=== PATIENT | male | born 1975 | race Caucasian/White ===

== ENCOUNTER 2021-03-11 16:17 | Emergency (ER) | payer BC, SELFPAY ==
[2021-03-11 16:18] VITALS: BP 120/88; PULSE 86; RESP 18; TEMP 36.3; O2SAT 100
--- NOTE | 2021-03-11 16:49 | ECG_ITS ---
Measurements Intervals [place] Rate: 85 P: 27 MT: 132 QRS: -4 QRSD: 84 T: 23 QT: 347 QTc: 413 Interpretive Statements SINUS RHYTHM INCOMPLETE RIGHT BUNDLE BRANCH BLOCK BORDERLINE T WAVE ABNORMALITY- INF/LAT LEADS BASELINE ARTIFACT- I, III BORDERLINE ECG Electronically Signed On 03-11-2021 18:59:10 CDT by Jostin Beasley D.O.
--- NOTE | 2021-03-11 17:13 | ED.GENADULT ---
HPI - General Adult General Chief complaint: Anxiety Stated complaint: Anxiety Attack x3 days Time Seen by Provider: 03/11/21 16:23 History of Present Illness HPI narrative: Patient is a 45-year-old male who presents ER with anxiety. Reports he stopped his anxiety medications last month. This is done in consultation with his doctor. He had been doing well until 3 days ago when the anxiety crept back into his life. Reports had a panic attack earlier today. He is also been getting some central chest tightness related to his anxiety. No shortness of breath. He did try to go for a run which did not modify his chest discomfort. Denies fevers or chills or sweats. No new stressors. He does continue to smoke. Related Data Home Medications Medication Instructions Recorded Confirmed buspirone 5 mg PO BID 10/08/19 clonazepam 1 mg PO TID 10/08/19 escitalopram oxalate 10 mg PO DAILY 10/08/19 trazodone 100 mg PO HS 10/08/19 Allergies Allergy/AdvReac Type Severity Reaction Status Date / Time No Known Allergies Allergy Verified 10/08/19 11:37 Review of Systems Constitutional: Constitutional: Denies chills, Denies fever(s) and Denies weakness Cardiovascular: Cardiovascular: Reports chest pain, Denies rapid heart rate and Denies radiating jaw, neck or arm pain Respiratory: Respiratory: Denies cough and Denies dyspnea Psychiatric: Psychiatric: Reports anxiety, Denies depression, Denies homicidal ideation and Denies suicidal ideation PMFSH Past Medical History Medical History (Updated 03/11/21 @ 17:16 by Conrad Lowry MD) Anxiety Cluster headache GERD (gastroesophageal reflux disease) Psoriasis Family History Family History (Updated 03/30/19 @ 16:59 by DOCTOR UNKNOWN) Mother Family history of malignant neoplasm Other Cerebrovascular accident Social History Social History (Updated 10/08/19 @ 13:13 by Junior Oneal) Smoking status: Current every day smoker Alcohol intake: current Gender identity (if verbalized by the patient): Male Exam Narrative: Exam Narrative: GENERAL: Well-appearing, well-nourished, and in no acute distress. HEAD: Normocephalic, atraumatic. CHEST: Clear to auscultation. No respiratory distress. HEART: Regular rate and rhythm. Normal peripheral pulses. ABDOMEN: Soft, nontender, nondistended. EXTREMITIES: Normal range of motion. No edema. SKIN: Warm, dry, no rash. NEURO: Alert and oriented x3. PSYCH: Normal mood and affect. Course Course Emergency Course: Symptoms felt to be related to anxiety. Discussed with patient I will give him a small amount of Valium to help keep his anxiety at bay but he will need to discuss definitive treatment with his physician in 2 days when he has his scheduled follow-up appointment. Vital Signs Vital signs: Vital Signs Temperature 97.3 F L 03/11/21 16:18 Pulse Rate 86 03/11/21 16:18 Respiratory Rate 18 03/11/21 16:18 Blood Pressure 120/88 03/11/21 16:18 Pulse Oximetry 100 03/11/21 16:18 Temperature 97.4 F L 03/11/21 17:17 Pulse Rate 84 03/11/21 17:17 Respiratory Rate 19 03/11/21 17:17 Blood Pressure 125/86 03/11/21 17:17 Pulse Oximetry 99 03/11/21 17:17 Medical Decision Making Vital Signs Vital Signs: Vital Signs Temperature 97.3 F L 03/11/21 16:18 Pulse Rate 86 03/11/21 16:18 Respiratory Rate 18 03/11/21 16:18 Blood Pressure 120/88 03/11/21 16:18 Pulse Oximetry 100 03/11/21 16:18 Temperature 97.4 F L 03/11/21 17:17 Pulse Rate 84 03/11/21 17:17 Respiratory Rate 19 03/11/21 17:17 Blood Pressure 125/86 03/11/21 17:17 Pulse Oximetry 99 03/11/21 17:17 ECG Data EKG #1: ECG completion date: 03/11/21 ECG completion time: 17:15 EKG Interpretation: normal rate, sinus rhythm, no ST changes, normal QRS and normal QT Discharge Plan Discharge Clinical Impression: Anxiety Patient Disposition: Home, Self-Care Condition: Stable
[2021-03-11 17:17] VITALS: BP 125/86; PULSE 84; RESP 19; TEMP 36.3; O2SAT 99
== END 2021-03-11 17:33 | disposition home or self-care (01) ==
PROVIDERS: Emergency Provider Emergency Medicine
DX: F41.9 Anxiety disorder, unspecified (principal); K21.9 Gastro-esophageal reflux disease without esophagitis; F17.200 Nicotine dependence, unspecified, uncomplicated; I45.10 Unspecified right bundle-branch block; R94.31 Abnormal electrocardiogram [ECG] [EKG]
CPT/HCPCS: 93005; 99283

== ENCOUNTER 2022-03-23 17:28 | Emergency (ER) | payer BC, SELFPAY ==
--- NOTE | ~2022-03-23 | CT_ITS ---
EXAMINATION: CT brain wo con DATE: 03/23/2022 20:06 INDICATION: Headache. TECHNIQUE: Computed tomography (CT) of the head was performed without intravenous contrast. The mA wa s adjusted according to patient size. Iterative reconstruction technique was employed. The dose-lengt h product was 605.33 mGy-cm. COMPARISON: Head CT 12/27/2018, brain MRI 05/09/2018 FINDINGS: There is no intracranial hemorrhage, acute infarction, or abnormal intracranial mass lesion . The ventricles are normal in size. The orbits are normal. There is mucosal thickening in the parana raman sinuses. The mastoid air cells are normal. IMPRESSION: 1. Normal brain. Reviewed, dictated and finalized at location A. IMPRESSION: 1. Normal brain.
[2022-03-23 18:00] VITALS: BP 105/78; PULSE 71; RESP 18; TEMP 36.4; O2SAT 97
[2022-03-23 19:37] VITALS: BP 117/86; PULSE 66; RESP 12; O2SAT 96
--- NOTE | 2022-03-23 19:52 | ED.ANXIETY ---
HPI - Anxiety General Chief Complaint: Anxiety Stated Complaint: anxiety due to medication change Time Seen by Provider: 03/23/22 19:41 Source: patient Mode of arrival: ambulatory Limitations: no limitations History of Present Illness HPI narrative: This is a 46 year old male that presents to the ER for worsening anxiety ongoing over the last couple of weeks. Reports recent change in his psychiatric medications. He has been having worsening anxiety and trouble sleeping. Also reports a pounding headache and ringing in his ears. Denies any thoughts of harming himself or anyone else. Denies fever, vision changes, vomiting, numbness, or weakness. Related Data Home Medications Medication Instructions Recorded Confirmed buspirone 5 mg PO BID 10/08/19 clonazepam 1 mg PO TID 10/08/19 escitalopram oxalate 10 mg PO DAILY 10/08/19 trazodone 100 mg PO HS 10/08/19 Allergies Allergy/AdvReac Type Severity Reaction Status Date / Time bupropion [From Wellbutrin] AdvReac Anxiety Verified 03/23/22 19:40 quetiapine [From Seroquel] AdvReac Irritable Verified 03/23/22 19:40 Review of Systems Review of Systems: CONSTITUTIONAL: Denies fever EYES: Denies visual changes GASTROINTESTINAL: Denies vomiting NEUROLOGIC: Reports headache. Denies numbness, or weakness. PSYCHIATRIC: Reports anxiety All systems reviewed & are unremarkable except as noted in HPI and below PMFSH Past Medical History Medical History (Updated 03/23/22 @ 20:34 by Libia Willingham PA-C) Anxiety Cluster headache GERD (gastroesophageal reflux disease) Psoriasis Family History Family History (Updated 03/30/19 @ 16:59 by DOCTOR UNKNOWN) Mother Family history of malignant neoplasm Other Cerebrovascular accident Social History Social History (Updated 10/08/19 @ 13:13 by Junior Oneal) Smoking status: Current every day smoker Alcohol intake: current Alcohol use details: Current alcoholic. Substance use type: does not use Gender identity (if verbalized by the patient): Male Exam Narrative: GENERAL: Well-appearing, well-nourished, and in no acute distress. HEAD: Normocephalic, atraumatic. EYES: PERRLA and EOMI. ENT: Nares clear, no rhinorrhea or epistaxis. Mucous membranes moist. Oropharynx without tonsillar hypertrophy exudate or other lesions. Bilateral TMs pearly sandy non-bulging NECK: Supple. No adenopathy or masses. No carotid bruits or JVD CHEST: Clear to auscultation. No respiratory distress. No wheezes rales or rhonchi HEART: Regular rate and rhythm. No murmur heard. Normal peripheral pulses. EXTREMITIES: Normal range of motion. No edema. SKIN: Warm, dry, no rash. NEURO: No focal deficits. Alert and oriented x3. Cranial nerves II through XII grossly intact PSYCH: Normal mood and affect Course Vital Signs Vital signs: Vital Signs Temperature 97.6 F 03/23/22 18:00 Pulse Rate 71 03/23/22 18:00 Respiratory Rate 18 03/23/22 18:00 Blood Pressure 105/78 03/23/22 18:00 Pulse Oximetry 97 03/23/22 18:00 Temperature 97.6 F 03/23/22 18:00 Pulse Rate 66 03/23/22 19:37 Respiratory Rate 12 03/23/22 19:37 Blood Pressure 117/86 03/23/22 19:37 Pulse Oximetry 96 03/23/22 19:37 MDM - Anxiety MDM Narrative Medical decision making narrative: Patient presents to the ER for worsening anxiety after recent medication change. Also reporting a headache. Patient's vitals are stable. He is neurologically intact. CBC and metabolic panel without concerning findings. CT scan of the brain is normal. Patient denies any thoughts of harming himself or anyone else. Will be given a short course of anxiety medication as needed. Instructed to have close follow-up with his doctor. He was given warnings to return to the ER Lab Data Attestation: I reviewed the patient's lab results. Result diagrams: 03/23/22 19:58 03/23/22 19:58 Labs: Lab Results 03/23/22 03/23/22 Range/Units 19:
[2022-03-23 20:05] LABS: Basophils Absolute Auto 0.1 K/mm3 (0.0-0.1); Basophils Percent Auto 0.5 % (0.2-1.2); Eosinophils Absolute Auto 0.5 K/mm3 (0-0.3); Eosinophils Percent Auto 3.9 % (0-4.4); Hematocrit 45.6 % (42.0-52.0); Hemoglobin 15.4 g/dL (14.0-18.0); Immature Granulocyte Absolute 0.06 K/mm3 (0.00-0.031); Immature Granulocyte Percent A 0.5 % (0-0.5); Lymphocytes Absolute Auto 1.79 K/mm3 (0.9-3.2); Lymphocytes Percent Auto 15.5 % (18.3-44.2); Mean Corpuscular HGB Conc 33.8 g/dl (32-36); Mean Corpuscular Hemoglobin 32.4 pg (26-34); Mean Corpuscular Volume 95.8 fl (80-100); Mean Platelet Volume 9.5 fl (7.4-10.4); Monocytes Absolute Auto 0.8 K/mm3 (0.1-0.6); Monocytes Percent Auto 6.6 % (2.6-8.5); Neutrophils Absolute Auto 8.4 K/mm3 (1.3-6.7); Platelet Count Result 274 k/mm3 (150-375); Red Blood Count 4.76 M/mm3 (4.6-6.20); Red Cell Distribution Width 13.6 % (11.5-14.5); White Blood Count 11.6 K/mm3 (4.5-10.0)
[2022-03-23 20:13] LABS: Alanine Aminotransferase 29 U/L (4-50); Albumin Level 4.4 g/dL (3.5-5.1); Alkaline Phosphatase 86 U/L (38-126); Anion Gap 7 mmol/L (8-16); Aspartate Amino Transferase 29 U/L (17-59); Bilirubin,Total 0.4 mg/dL (0.2-1.3); Blood Urea Nitrogen 17 mg/dL (9-20); Calcium 9.1 mg/dL (8.4-10.2); Carbon Dioxide 26 mmol/L (22-30); Chloride 105 mmol/L (98-107); Estimated CRCL calculation 80 ml/min; Estimated Glomerular Filt Rate > 60; Glucose 103 mg/dL (65-110); Potassium 4.3 mmol/L (3.4-5.0); Sodium 138 mmol/L (137-145)
[2022-03-23] MEDS: ACETAMINOPHEN 500 MG TABLET 1000 MG PO (20:19)
[2022-03-23 21:00] VITALS: BP 120/87; PULSE 80; RESP 19; O2SAT 97
== END 2022-03-23 21:00 | disposition home or self-care (01) ==
PROVIDERS: Physician Assistant; Emergency Provider Emergency Medicine
DX: F41.9 Anxiety disorder, unspecified (principal); K21.9 Gastro-esophageal reflux disease without esophagitis; F17.200 Nicotine dependence, unspecified, uncomplicated
CPT/HCPCS: 36415; 70450; 80053; 85025; 99284; A9270

== ENCOUNTER 2023-03-09 12:38 | Emergency (ER) | payer OTHER, SELFPAY ==
[2023-03-09] VITALS (17 sets, daily range): BP systolic 126–145; BP diastolic 53–123; PULSE 70–82; RESP 9–22; TEMP 36.8; O2SAT 94–100
--- NOTE | ~2023-03-09 | CT_ITS ---
EXAMINATION: CT abdomen pelvis w con DATE: 03/09/2023 16:45 INDICATION: ab pain TECHNIQUE: Computed tomography (CT) of the abdomen and pelvis was performed with 100 mL Omnipaque-350 intravenous contrast. Automated exposure control and iterative reconstruction technique were employe d. The dose-length product was 347.66 mGy-cm. COMPARISON: None. FINDINGS: Lower thorax: Unremarkable Liver: Normal. Biliary/Gallbladder: Gallbladder is partially decompressed. No bile duct dilation. Pancreas: No mass or duct dilation. Spleen: Normal. Adrenals:No mass. Kidneys: No mass, stone, or hydronephrosis. GI tract: No small or large bowel dilation. Normal appendix. Mesentery/Peritoneum: No ascites, mass, or free air. Retroperitoneum: No mass. Pelvis: Pelvic organs are within normal limits. Soft Tissues: Soft tissues and body wall unremarkable. Bones: No acute osseous finding. IMPRESSION: No acute abdominopelvic process detected. Reviewed, dictated and finalized at location K.
--- NOTE | 2023-03-09 13:10 | ECG_ITS ---
Measurements Intervals [place] Rate: 73 P: 53 NV: 133 QRS: -25 QRSD: 100 T: 47 QT: 363 QTc: 401 Interpretive Statements SINUS RHYTHM BORDERLINE LEFT AXIS DEVIATION [QRS AXIS < -20] INCOMPLETE RIGHT BUNDLE BRANCH BLOCK [90+ ms QRS DURATION, TERMINAL R IN V1/V2, 40+ ms S IN I/aVL/V4/V5/V6] COMPARED TO ECG 03/11/2021 17:15:01 NO SIGNIFICANT CHANGES Electronically Signed On 03-11-2023 6:51:31 CDT by Elvin Collier M.D.
[2023-03-09 13:24] LABS: Basophils Absolute Auto 0.1 K/mm3 (0.0-0.1); Basophils Percent Auto 0.9 % (0.2-1.2); Eosinophils Absolute Auto 0.2 K/mm3 (0-0.3); Eosinophils Percent Auto 2.5 % (0-4.4); Hemoglobin 9.9 g/dL (14.0-18.0); Immature Granulocyte Absolute 0.03 K/mm3 (0.00-0.031); Immature Granulocyte Percent A 0.4 % (0-0.5); Lymphocytes Absolute Auto 2.13 K/mm3 (0.9-3.2); Lymphocytes Percent Auto 28.1 % (18.3-44.2); Mean Corpuscular Hemoglobin 31.4 pg (26-34); Mean Corpuscular Volume 95.2 fl (80-100); Mean Platelet Volume 9.1 fl (7.4-10.4); Monocytes Absolute Auto 0.5 K/mm3 (0.1-0.6); Monocytes Percent Auto 6.2 % (2.6-8.5); Neutrophils Absolute Auto 4.7 K/mm3 (1.3-6.7); Neutrophils Percent Auto 61.9 % (45.5-73.1); Platelet Count Result 353 k/mm3 (150-375); Red Blood Count 3.15 M/mm3 (4.6-6.20); Red Cell Distribution Width 12.6 % (11.5-14.5); White Blood Count 7.6 K/mm3 (4.5-10.0)
[2023-03-09 13:35] LABS: Alanine Aminotransferase 21 U/L (6-50); Albumin Level 3.8 g/dL (3.5-5.1); Alkaline Phosphatase 44 U/L (38-126); Anion Gap 4 mmol/L (8-16); Aspartate Amino Transferase 19 U/L (17-59); Bilirubin,Total 0.4 mg/dL (0.2-1.3); Blood Urea Nitrogen 13 mg/dL (9-20); Calcium 10.4 mg/dL (8.4-10.2); Carbon Dioxide 32 mmol/L (22-30); Chloride 101 mmol/L (98-107); Estimated CRCL calculation 72 ml/min; Estimated Glomerular Filt Rate > 60; Glucose 101 mg/dL (65-110); Lipase 154 U/L (23-300); Potassium 3.1 mmol/L (3.4-5.0); Sodium 137 mmol/L (137-145)
[2023-03-09 13:47] LABS: Troponin I < 0.012 ng/mL (0.000-0.034)
[2023-03-09 14:22] LABS: Appearance Urine Cloudy (Clear); Bacteria Urine None Seen /hpf; Bilirubin Urine Negative (Negative); Blood Urine Negative (Negative); Color Urine Yellow (Yellow); Glucose Urine UA Negative (Negative); Ketones Urine Negative (Negative); Leukocyte Esterase Ur Negative LEU/UL (Negative); Nitrate Urine Negative (Negative); Non Pathogenic Casts 0-2; Protein Urine Negative (Negative); RBC Urine 0-2 /hpf (0-2); Specific Grav Ur 1.009 (1.001-1.035); Squamous Epithelial Cell Urine None seen /hpf (Few); Urobilinogen Urine 0.2 mg/dL (<2.0); WBC Urine 0-5 /hpf
[2023-03-09 14:25] LABS: Add Urine Microscopic? YES
[2023-03-09] MEDS: KCL 20 MEQ/SW 100 ML 100 ML 50 MEQ IVPB (16:16)
--- NOTE | 2023-03-09 16:25 | ED.GENADULT ---
HPI - General Adult General Chief complaint: Abdominal Pain Stated complaint: ABD PAIN, CP, LIGHTHEADED Time Seen by Provider: 03/09/23 15:54 History of Present Illness HPI narrative: 47-year-old male presented the emergency department for evaluation of intermittent epigastric pain and stomach pain with associated nausea. Patient states over the last few days he has had worsening symptoms. Patient states symptoms do improve when he takes Tums. Related Data Home Medications Medication Instructions Recorded Confirmed buspirone 5 mg tablet 5 mg PO BID 10/08/19 clonazepam 1 mg tablet 1 mg PO TID 10/08/19 escitalopram oxalate 10 mg tablet 10 mg PO DAILY 10/08/19 trazodone 100 mg tablet 100 mg PO HS 10/08/19 Allergies Allergy/AdvReac Type Severity Reaction Status Date / Time bupropion [From Wellbutrin] AdvReac Anxiety Verified 03/23/22 19:40 quetiapine [From Seroquel] AdvReac Irritable Verified 03/23/22 19:40 Review of Systems Review of Systems: All systems reviewed & are unremarkable except as noted in HPI and below PMFSH Past Medical History Medical History (Updated 03/09/23 @ 17:44 by Red Cordoba MD) Anxiety Cluster headache GERD (gastroesophageal reflux disease) Psoriasis Family History Family History (Updated 03/30/19 @ 16:59 by DOCTOR UNKNOWN) Mother Family history of malignant neoplasm Other Cerebrovascular accident Social History Social History (Updated 10/08/19 @ 13:13 by Junior Oneal) Smoking status: Current every day smoker Alcohol intake: current Alcohol use details: Current alcoholic. Substance use type: does not use Gender identity (if verbalized by the patient): Male Exam Narrative: APPEARANCE: Well appearing, no pain, no distress, well-nourished. HEAD: normocephalic, atraumatic. EYES: PERRLA/EOMI, conjunctivae clear. NOSE: Normal no drainage NECK: Supple. No adenopathy, no masses. RESPIRATORY: Airway patent, respirations nonlabored. Clear to auscultation bilaterally, no rales, rhonchi, wheezing. CARDIOVASCULAR: Regular rate and rhythm without murmurs rubs or gallops. ABDOMINAL: Soft, epigastric tenderness to palpation MUSCULOSKELETAL: Moves all extremities. Strength/ROM intact, No edema, No calf tenderness. NEURO: Alert. Cranial nerves II through XII intact. Grossly intact SKIN: Warm, dry. Normal Color Course Course Emergency Course: 47-year-old male presented the emergency department for evaluation of epigastric pain. Patient states that the GI cocktail did resolve his pain. Patient is afebrile with no leukocytosis. Patient's CMP was normal other than his potassium which was 3.1 which was replaced through IV. Patient serial troponins were negative. Patient's UA showed no evidence of urinary tract infection. CT showed no acute abdominal pelvic abnormality. Patient does have a prior history of gastritis but has not been taking his omeprazole. Patient was updated on the results of the work-up and plan for home treatment and on the importance for close follow-up with GI. All questions concerns were addressed. Vital Signs Vital signs: Vital Signs Temperature 98.2 F 03/09/23 13:06 Pulse Rate 79 03/09/23 13:06 Respiratory Rate 16 03/09/23 13:06 Blood Pressure 145/87 H 03/09/23 13:06 Pulse Oximetry 100 03/09/23 13:06 Oxygen Delivery Room Air 03/09/23 13:06 Temperature 98.2 F 03/09/23 13:06 Pulse Rate 78 03/09/23 18:04 Respiratory Rate 9 L 03/09/23 18:04 Blood Pressure 130/53 L 03/09/23 18:02 Pulse Oximetry 100 03/09/23 18:04 Oxygen Delivery Room Air 03/09/23 13:06 Medical Decision Making Vital Signs Vital Signs: Vital Signs Temperature 98.2 F 03/09/23 13:06 Pulse Rate 79 03/09/23 13:06 Respiratory Rate 16 03/09/23 13:06 Blood Pressure 145/87 H 03/09/23 13:06 Pulse Oximetry 100 03/09/23 13:06 Oxygen Delivery Room Air 03/09/23 13:06 Temperature 98.2 F 03/09/23 13:06 Pulse
[2023-03-09] MEDS: PANTOPRAZOLE SODIUM IV 40 MG VIAL IV PUSH (17:18)
[2023-03-09] MEDS: BELLADONNA ALK/PHENOB ELIX 10 ML, MAG HYDROX/ALUMINUM HYD/SIMETH 30 ML, LIDOCAINE HCL 2... PO (17:18)
[2023-03-09 17:22] LABS: Troponin I < 0.012 ng/mL (0.000-0.034)
== END 2023-03-09 18:19 | disposition home or self-care (01) ==
PROVIDERS: Emergency Medicine; Emergency Provider Emergency Medicine
DX: K29.70 Gastritis, unspecified, without bleeding (principal); K21.9 Gastro-esophageal reflux disease without esophagitis; F41.9 Anxiety disorder, unspecified; F17.200 Nicotine dependence, unspecified, uncomplicated
CPT/HCPCS: 36415; 74177; 80053; 81001; 83690; 84484; 85025; 93005; 96365; 96366; 96375; 99284; A9270; C9113; J3480; Q9967

== ENCOUNTER 2023-08-24 15:31 | Emergency (ER) | payer OTHER, SELFPAY ==
[2023-08-24 15:32] VITALS: BP 124/78; PULSE 83; RESP 16; TEMP 37; O2SAT 100
--- NOTE | 2023-08-24 16:38 | ED.ANXIETY ---
HPI - Anxiety General Chief Complaint: Anxiety Stated Complaint: anxiety Time Seen by Provider: 08/24/23 15:38 History of Present Illness HPI narrative: 47-year-old male with history of anxiety reports to the emergency department for evaluation of anxiety since last night. Patient states he follows with Dr. Chan psychiatry. He last had an appointment 1 month ago that went well. He states he has had his anxiety under control for the past year and has not required any medications, however last night began feeling anxious again. States this morning he woke up to go for mom to see if it helped and it did not, so he came to the ED for further evaluation. He did call his psychiatrist office, however is waiting to hear back and states his anxiety is getting the best of me. Patient reports in the past he has taken clonazepam as needed but is currently out of his prescription. He states he has trialed hydroxyzine in the past without improvement. He denies chest pain or shortness of breath, fever, other complaints. He denies SI/HI, no psychosis. He denies new onset stressors or life changes, but does state he was hospitalized approximately 3 weeks ago at [facility] for hypokalemia secondary to vomiting and diarrhea. At that time was not taking his Vraylar, and is concern this may be contributing to his anxiety. Related Data Home Medications Medication Instructions Recorded Confirmed buspirone 5 mg tablet 5 mg PO BID 10/08/19 clonazepam 1 mg tablet 1 mg PO TID 10/08/19 escitalopram oxalate 10 mg tablet 10 mg PO DAILY 10/08/19 trazodone 100 mg tablet 100 mg PO HS 10/08/19 Allergies Allergy/AdvReac Type Severity Reaction Status Date / Time bupropion [From Wellbutrin] AdvReac Anxiety Verified 03/23/22 19:40 quetiapine [From Seroquel] AdvReac Irritable Verified 03/23/22 19:40 Review of Systems Review of Systems: CONSTITUTIONAL: Denies fever, chills EYES: Denies visual changes, redness, or discharge. ENT: Denies rhinorrhea, congestion, sore throat, or otalgia. CARDIOVASCULAR: Denies chest pain, palpitations, or edema. RESPIRATORY: Denies cough or dyspnea. GASTROINTESTINAL: Denies abdominal pain, nausea, vomiting, or diarrhea. GENITOURINARY: Denies dysuria or hematuria. SKIN: Denies rash or itching. MUSCULOSKELETAL: Denies back pain, joint pain, or myalgia. NEUROLOGIC: Denies headache, numbness, dizziness, or weakness. PSYCHIATRIC: See [facility] Past Medical History Medical History Anxiety Cluster headache GERD (gastroesophageal reflux disease) Psoriasis Family History Family History Mother Family history of malignant neoplasm Other Cerebrovascular accident Social History Social History Smoking status: Current every day smoker Alcohol intake: current Alcohol use details: Current alcoholic. Substance use type: does not use Gender identity (if verbalized by the patient): Male Exam Narrative: GENERAL: Well-appearing, in no acute distress. Patient resting comfortably in exam bed. He is pleasant and conversational. HEAD: Normocephalic NECK: Supple. CHEST: No respiratory distress. Clear to auscultation, no adventitious breath sounds. HEART: Regular rate and rhythm. No murmur heard. Normal peripheral pulses. EXTREMITIES: Normal range of motion. No edema. SKIN: Warm, dry, no rash. NEURO: No focal deficits. Alert and oriented x3. PSYCH: Normal mood and affect. Good judgment and insight. No active psychosis, hallucinations, delusions. No SI or HI. Course Course Emergency Course: Pt returned to the ED after he picked up his prescription from the pharmacy. Medication in the paper bag still stapled and intact from the pharmacy. Rx shows only 3 clonazepam were able to be filled. Script was written for 5. Per the patient, the pharm
[2023-08-24] MEDS: clonazePAM (*CRX) 0.5 MG TABLET PO (16:59)
== END 2023-08-24 17:03 | disposition home or self-care (01) ==
PROVIDERS: Emergency Provider Physician Assistant; PCP Emergency Medicine
DX: F41.9 Anxiety disorder, unspecified (principal); K21.9 Gastro-esophageal reflux disease without esophagitis; L40.9 Psoriasis, unspecified; F17.200 Nicotine dependence, unspecified, uncomplicated
CPT/HCPCS: 99283; A9270

== ENCOUNTER 2023-10-31 11:11 | Outpatient (CLI) | payer OTHER, SELFPAY ==
[2023-10-31 11:37] LABS: Basophils Absolute Auto 0.1 K/mm3 (0.0-0.1); Basophils Percent Auto 1.2 % (0.2-1.2); Eosinophils Absolute Auto 0.4 K/mm3 (0-0.3); Eosinophils Percent Auto 4.8 % (0-4.4); Hematocrit 37.2 % (42.0-52.0); Hemoglobin 12.1 g/dL (14.0-18.0); Immature Granulocyte Absolute 0.03 K/mm3 (0.00-0.031); Immature Granulocyte Percent A 0.4 % (0-0.5); Lymphocytes Absolute Auto 1.52 K/mm3 (0.9-3.2); Lymphocytes Percent Auto 19.9 % (18.3-44.2); Mean Corpuscular HGB Conc 32.5 g/dl (32-36); Mean Corpuscular Hemoglobin 27.9 pg (26-34); Mean Corpuscular Volume 85.9 fl (80-100); Mean Platelet Volume 9.6 fl (7.4-10.4); Monocytes Absolute Auto 0.5 K/mm3 (0.1-0.6); Monocytes Percent Auto 6.8 % (2.6-8.5); Neutrophils Absolute Auto 5.1 K/mm3 (1.3-6.7); Neutrophils Percent Auto 66.9 % (45.5-73.1); Platelet Count Result 316 k/mm3 (150-375); Red Blood Count 4.33 M/mm3 (4.6-6.20); Red Cell Distribution Width 13.7 % (11.5-14.5); White Blood Count 7.6 K/mm3 (4.5-10.0)
[2023-10-31 17:13] LABS: Erythrocyte Sedimentation Rate 10 mm/hr (0-20)
[2023-10-31 20:08] LABS: Alanine Aminotransferase 22 U/L (6-50); Albumin Level 4.5 g/dL (3.5-5.1); Alkaline Phosphatase 82 U/L (38-126); Anion Gap 9 mmol/L (8-16); Aspartate Amino Transferase 22 U/L (17-59); Blood Urea Nitrogen 20 mg/dL (9-20); CRP < 0.5 mg/dL (<1.0); Calcium 9.6 mg/dL (8.4-10.2); Carbon Dioxide 21 mmol/L (22-30); Chloride 110 mmol/L (98-107); Estimated Glomerular Filt Rate > 60; Glucose 88 mg/dL (65-110); Potassium 4.4 mmol/L (3.4-5.0); Sodium 140 mmol/L (137-145)
[2023-10-31 20:39] LABS: Iron 47 ug/dL (49-181)
[2023-10-31 20:50] LABS: Percent Iron Saturation 11 % (20-50)
[2023-10-31 21:04] LABS: Folic Acid 6.1 ng/mL (2.76->20)
[2023-10-31 22:36] LABS: Bilirubin,Total 0.3 mg/dL (0.2-1.3)
== END 2023-10-31 11:12 | disposition home or self-care (01) ==
PROVIDERS: Visit Provider Internal Medicine Hematology & Oncology
DX: D64.9 Anemia, unspecified (principal)
CPT/HCPCS: 36415; 80053; 82607; 82728; 82746; 83540; 83550; 85025; 85652; 86140

== ENCOUNTER 2024-01-25 15:43 | Emergency (ER) | payer OTHER, SELFPAY ==
--- NOTE | ~2024-01-25 | CT_ITS ---
EXAMINATION: CT brain wo con DATE: 01/25/2024 16:42 INDICATION: Dizziness. TECHNIQUE: Computed tomography (CT) of the head was performed without intravenous contrast. The mA wa s adjusted according to patient size. Iterative reconstruction technique was employed. The dose-lengt h product was 605.33 mGy-cm. COMPARISON: Head CT 03/23/22, brain MRI 05/09/2018 FINDINGS: There is no intracranial hemorrhage, acute infarction, or abnormal intracranial mass lesion . The ventricles are normal in size. There is mild mucosal thickening in the paranasal sinuses. The o rbits are normal. The mastoid air cells are normal. IMPRESSION: 1. Normal brain. Reviewed, dictated and finalized at location E. E CHECKER IMPRESSION: 1. Normal brain.
--- NOTE | ~2024-01-25 | XR_ITS ---
EXAMINATION: XR chest 1V DATE: 01/25/2024 16:51 INDICATION: Dizziness. TECHNIQUE: A single frontal view of the chest was obtained. COMPARISON: Chest 2 views 12/27/2018, CT abdomen and pelvis 03/09/2023 FINDINGS: There is no pneumonia, pleural effusion, or pneumothorax. The heart size is normal. Pectus excavatum is noted. IMPRESSION: 1. No acute cardiopulmonary disease. Reviewed, dictated and finalized at location E. ZER OPERATOR
[2024-01-25 15:43] VITALS: BP 123/86; PULSE 70; RESP 16; TEMP 36.5; O2SAT 99
--- NOTE | 2024-01-25 15:44 | ECG_ITS ---
Measurements Intervals [place] Rate: 70 P: 48 CO: 142 QRS: 17 QRSD: 84 T: 22 QT: 360 QTc: 389 Interpretive Statements SINUS RHYTHM POSSIBLE LEFT ATRIAL ENLARGEMENT INCOMPLETE RIGHT BUNDLE BRANCH BLOCK BORDERLINE ECG COMPARED TO ECG 03/09/2023 13:12:33 NO SIGNIFICANT CHANGES Electronically Signed On 01-25-2024 19:34:10 WELLNESS COORDINATOR by Jostin Beasley D.O.
[2024-01-25 16:02] LABS: Basophils Absolute Auto 0.1 K/mm3 (0.0-0.1); Eosinophils Absolute Auto 0.3 K/mm3 (0-0.3); Eosinophils Percent Auto 4.2 % (0-4.4); Immature Granulocyte Absolute 0.03 K/mm3 (0.00-0.031); Immature Granulocyte Percent A 0.4 % (0-0.5); Lymphocytes Percent Auto 22.2 % (18.3-44.2); Mean Corpuscular HGB Conc 33.3 g/dl (32-36); Mean Corpuscular Hemoglobin 29.3 pg (26-34); Mean Corpuscular Volume 87.8 fl (80-100); Mean Platelet Volume 9.8 fl (7.4-10.4); Monocytes Absolute Auto 0.5 K/mm3 (0.1-0.6); Monocytes Percent Auto 7.2 % (2.6-8.5); Neutrophils Absolute Auto 4.7 K/mm3 (1.3-6.7); Platelet Count Result 309 k/mm3 (150-375); Red Blood Count 4.44 M/mm3 (4.6-6.20); Red Cell Distribution Width 15.4 % (11.5-14.5); White Blood Count 7.2 K/mm3 (4.5-10.0)
[2024-01-25 16:12] LABS: Alanine Aminotransferase 21 U/L (6-50); Albumin Level 4.3 g/dL (3.5-5.1); Alkaline Phosphatase 72 U/L (38-126); Anion Gap 7 mmol/L (8-16); Aspartate Amino Transferase 19 U/L (17-59); Bilirubin,Total 0.4 mg/dL (0.2-1.3); Blood Urea Nitrogen 20 mg/dL (9-20); Calcium 9.1 mg/dL (8.4-10.2); Carbon Dioxide 24 mmol/L (22-30); Chloride 105 mmol/L (98-107); Estimated CRCL calculation 71 ml/min; Estimated Glomerular Filt Rate > 60; Glucose 102 mg/dL (65-110); Sodium 136 mmol/L (137-145)
--- NOTE | 2024-01-25 16:26 | ED.DIZZY ---
HPI - Dizziness General Chief Complaint: Dizziness Stated Complaint: light headed, lulú pain Time Seen by Provider: 01/25/24 16:25 Source: patient and family Mode of arrival: ambulatory Limitations: no limitations History of Present Illness HPI Narrative: 48 YEARS OLD WHITE MALE CAME TO THE EMERGENCY ROOM BY PRIVATE CAR WITH HIS DAD COMPLAINING OF DIZZINESS, LIGHTHEADEDNESS AND FEELING TIRED FOR THE LAST 3 DAYS. HE PATIENT HAD SIMILAR SYMPTOMS IN THE PAST SECONDARY TO HYPOKALEMIA AND ANXIETY RELATED SYMPTOMS. PATIENT HAVE PSYCH DISORDER. HE DENIED FEVER, CHILLS, NAUSEA, VOMITING, CHEST PAIN, SHORTNESS OF BREATH OR HEADACHE. ALSO DENIES SMOKING OR DRINKING OR USING DRUGS. Related Data Home Medications Medication Instructions Recorded Confirmed buspirone 5 mg tablet 5 mg PO BID 10/08/19 clonazepam 1 mg tablet 1 mg PO TID 10/08/19 escitalopram oxalate 10 mg tablet 10 mg PO DAILY 10/08/19 trazodone 100 mg tablet 100 mg PO HS 10/08/19 Allergies Allergy/AdvReac Type Severity Reaction Status Date / Time bupropion [From Wellbutrin] AdvReac Anxiety Verified 11/27/23 15:56 quetiapine [From Seroquel] AdvReac Irritable Verified 11/27/23 15:56 Review of Systems Review of Systems: All systems reviewed & are unremarkable except as noted in HPI and below PMFSH Past Medical History Medical History Anxiety Cluster headache GERD (gastroesophageal reflux disease) Psoriasis Family History Family History Mother Family history of malignant neoplasm Other Cerebrovascular accident Social History Social History Smoking status: Current every day smoker Alcohol intake: current Alcohol use details: Current alcoholic. Substance use type: does not use Gender identity (if verbalized by the patient): Male Exam Narrative: GENERAL APPEARANCE: WELL-DEVELOPED, WELL-NOURISHED SKIN: NORMAL COLOR HEAD: NORMOCEPHALIC, NONTRAUMATIC EYES: CLEAR CONJUNCTIVA ENT: OROPHARYNX NORMAL, EARS NORMAL, NOSE NORMAL NECK: SUPPLE, NONTENDER CHEST AND RESPIRATORY: AIRWAY PATENT, NO RESPIRATORY DISTRESS, NO ACCESSORY MUSCLE USE HEART: REGULAR RATE/RHYTHM ABDOMEN: SOFT, NONTENDER, NO ORGANOMEGALY, QUIET BOWEL SOUNDS VASCULAR: NORMAL PERIPHERAL PULSES, NORMAL CAPILLARY REFILL. MUSCULOSKELETAL: NORMAL RANGE OF MOTION, NONTENDER BACK NEUROLOGIC: ALERT AND ORIENTED ?3, SLPS IS NORMAL TESTED, NO GROSS MOTOR DEFICIT Course Vital Signs Vital signs: Vital Signs Temperature 36.5 C 01/25/24 15:43 Pulse Rate 70 01/25/24 15:43 Respiratory Rate 16 01/25/24 15:43 Blood Pressure 123/86 01/25/24 15:43 Pulse Oximetry 99 01/25/24 15:43 Temperature 36.5 C 01/25/24 15:43 Pulse Rate 65 01/25/24 18:07 Respiratory Rate 19 01/25/24 18:07 Blood Pressure 112/83 01/25/24 18:07 Pulse Oximetry 98 01/25/24 18:07 MDM - Dizziness MDM Narrative Medical decision making narrative: PATIENT PRESENTS WITH DIZZINESS, ON PSYCH MEDICATIONS DIFFERENTIAL DIAGNOSIS INCLUDE INTRACRANIAL PATHOLOGY, ORTHOSTATIC HYPOTENSION, ELECTROLYTE IMBALANCE, DEHYDRATION, ANXIETY LIKE SYMPTOMS. BLOOD WORKUP TODAY SHOWED NO ACUTE ABNORMALITIES CT HEAD AND CHEST X-RAY SHOWED NO ACUTE ABNORMALITIES. PATIENT BLOOD PRESSURE IN SITTING POSITION 133/97, ON STANDING 103/85. PATIENT RECEIVED 2 L OF NORMAL SALINE IV. Was remarkable improvement of the blood pressure and lightheadedness. the pt was discharged to home.the pt,s condition upon discharge was fair,education was provided to the pt in reference to the fi
[2024-01-25 16:59] VITALS: PULSE 66
[2024-01-25 17:05] VITALS: BP 101/68; PULSE 66; RESP 20; O2SAT 96
[2024-01-25 17:35] VITALS: BP 103/85; BP 116/74; BP 133/97; PULSE 63; PULSE 70; PULSE 82
[2024-01-25 17:49] LABS: Appearance Urine Clear (Clear); Bilirubin Urine Negative (Negative); Blood Urine Negative (Negative); Color Urine Yellow (Yellow); Glucose Urine UA Negative (Negative); Ketones Urine Trace mg/dL (Negative); Leukocyte Esterase Ur Negative LEU/UL (Negative); Nitrate Urine Negative (Negative); Protein Urine Negative (Negative); Specific Grav Ur 1.026 (1.001-1.035); Urobilinogen Urine 0.2 mg/dL (<2.0)
[2024-01-25 17:50] LABS: Add Urine Microscopic? NO
[2024-01-25 18:03] LABS: Amphetamine Screen Urine Negative (Negative); Barbiturate Screen Urine Negative (Negative); Benzodiazepines Screen Urine Negative (Negative); Cannabinoid Screen Urine Negative (Negative); Cocaine Screen Urine Negative (Negative); Methadone Screen Urine Negative (Negative); Opiate Screen Urine Negative (Negative); Phencyclidine Screen Urine Negative (Negative)
[2024-01-25] MEDS: SODIUM CHLORIDE 0.9% IV 1,000 ML 999 ML IV CONT ×2 (18:05)
[2024-01-25 18:07] VITALS: BP 112/83; PULSE 65; RESP 19; O2SAT 98
[2024-01-25 19:24] VITALS: BP 131/87; PULSE 68; RESP 20; O2SAT 100
== END 2024-01-25 19:26 | disposition home or self-care (01) ==
PROVIDERS: Student in an Organized Health Care Education/Training Program; Emergency Provider Emergency Medicine; PCP Emergency Medicine
DX: I95.1 Orthostatic hypotension (principal); E87.6 Hypokalemia; F17.200 Nicotine dependence, unspecified, uncomplicated; Z79.899 Other long term (current) drug therapy
CPT/HCPCS: 36415; 70450; 71045; 80053; 80307; 81003; 85025; 93005; 96360; 99284; J7030

== ENCOUNTER 2025-04-19 10:08 | Emergency (ER) | payer OTHER, SELFPAY ==
--- NOTE | ~2025-04-19 | XR_ITS ---
EXAMINATION: XR chest 2V 04/19/2025 10:56 INDICATION: Chest pain PROCEDURE: 2 view chest COMPARISON: 01/25/2024 FINDINGS: The lungs are clear. The cardiomediastinal silhouette is within normal limits. There are no pleural effusions. There is no pneumothorax suspected. There is pectus excavatum. IMPRESSION: 1: NO ACUTE CARDIOPULMONARY DISEASE. Reviewed, dictated and finalized at location A.
[2025-04-19 10:10] VITALS: BP 139/74; PULSE 69; RESP 18; TEMP 36.4; O2SAT 100
--- NOTE | 2025-04-19 10:10 | ECG_ITS ---
Test Date: 2025-04-19 10:16:23 Measurements Intervals [place] Rate: 74 P: 50 AR: 132 QRS: 8 QRSD: 84 T: 44 QT: 364 QTc: 404 Interpretive Statements SINUS RHYTHM POSSIBLE LEFT ATRIAL ENLARGEMENT CONSIDER RIGHT VENTRICULAR CONDUCTION DELAY BASELINE ARTIFACT- I, II, III, AVR, AVL, AVF BORDERLINE ECG No previous ECG available for comparison Electronically Signed On 04-19-2025 11:48:06 CDT by Jostin Beasley D.O.
[2025-04-19 10:35] LABS: Basophils Percent Auto 0.6 % (0.2-1.2); Eosinophils Absolute Auto 0.1 K/mm3 (0-0.3); Eosinophils Percent Auto 0.9 % (0-4.4); Hematocrit 38.3 % (42.0-52.0); Hemoglobin 13.1 g/dL (14.0-18.0); Immature Granulocyte Absolute 0.03 K/mm3 (0.00-0.031); Immature Granulocyte Percent A 0.4 % (0-0.5); Lymphocytes Absolute Auto 1.45 K/mm3 (0.9-3.2); Mean Corpuscular HGB Conc 34.2 g/dl (32-36); Mean Corpuscular Volume 93.6 fl (80-100); Mean Platelet Volume 9.9 fl (7.4-10.4); Monocytes Absolute Auto 0.5 K/mm3 (0.1-0.6); Neutrophils Absolute Auto 4.8 K/mm3 (1.3-6.7); Neutrophils Percent Auto 70.1 % (45.5-73.1); Platelet Count Result 228 k/mm3 (150-375); Red Blood Count 4.09 M/mm3 (4.6-6.20); Red Cell Distribution Width 12.9 % (11.5-14.5); White Blood Count 6.9 K/mm3 (4.5-10.0)
[2025-04-19 10:45] LABS: Prothrombin Time 13.2 Seconds (11.1-14.7)
[2025-04-19 10:48] LABS: Alanine Aminotransferase 36 U/L (6-50); Albumin Level 4.5 g/dL (3.5-5.1); Alkaline Phosphatase 56 U/L (38-126); Anion Gap 9 mmol/L (4-12); Aspartate Amino Transferase 27 U/L (17-59); Bilirubin,Total 0.3 mg/dL (0.2-1.3); Blood Urea Nitrogen 24 mg/dL (9-20); Calcium 9.6 mg/dL (8.4-10.2); Carbon Dioxide 24 mmol/L (22-30); Chloride 106 mmol/L (98-107); Estimated CRCL calculation 57 ml/min; Estimated Glomerular Filt Rate 55; Glucose 143 mg/dL (65-110); Lipase 196 U/L (23-300); Potassium 3.2 mmol/L (3.4-5.0); Sodium 139 mmol/L (137-145)
[2025-04-19 11:00] LABS: Troponin I < 0.012 ng/mL (0.000-0.034)
[2025-04-19] MEDS: POTASSIUM CHLORIDE 20 MEQ ER TABLET 40 MEQ PO (11:00)
[2025-04-19 11:08] LABS: Magnesium 2.1 mg/dL (1.6-2.3)
--- NOTE | 2025-04-19 11:15 | ED.CHESTPAIN ---
HPI - Chest Pain General Chief Complaint: Chest Pain Stated Complaint: shaky and chest pain Time Seen by Provider: 04/19/25 10:35 Source: patient Mode of arrival: ambulatory Limitations: no limitations History of Present Illness HPI narrative: This is a 49 year old male that presents to the ER for lightheadedness, dehydration. Reports he has been on a GLP-1. He has had trouble with lightheadedness, dry mouth, nausea. He was seen in the ER and found to be dehydrated. He did stop the medication. He has been off of it for about a month now. Started to feel bad again the last couple of days. Reports intermittent chest pains, muscle aches, feels like he ran a marathon. Related Data Home Medications ?Medication ?Instructions ?Recorded ?Confirmed ?Last Taken ?Type buspirone 5 mg tablet 5 mg PO BID 10/08/19 Unknown History clonazepam 1 mg tablet 1 mg PO TID 10/08/19 Unknown History escitalopram oxalate 10 mg tablet 10 mg PO DAILY 10/08/19 Unknown History trazodone 100 mg tablet 100 mg PO HS 10/08/19 Unknown History Allergies Allergy/AdvReac Type Severity Reaction Status Date / Time bupropion (From Wellbutrin) AdvReac Anxiety Verified 11/27/23 15:56 quetiapine (From Seroquel) AdvReac Irritable Verified 11/27/23 15:56 Review of Systems Review of Systems: All systems reviewed & are unremarkable except as noted in HPI and below PMFSH Past Medical History Medical History Anxiety Cluster headache GERD (gastroesophageal reflux disease) Psoriasis Family History Family History Mother Family history of malignant neoplasm Other Cerebrovascular accident Social History Social History Smoking status: Current every day smoker Alcohol intake: current Alcohol use details: Current alcoholic. Substance use type: does not use Gender identity (if verbalized by the patient): Male Exam Narrative: GENERAL: Well-appearing, well-nourished, and in no acute distress. HEAD: Normocephalic, atraumatic. EYES: EOMI. ENT: Nares clear, no rhinorrhea or epistaxis. Mucous membranes moist. Oropharynx without tonsillar hypertrophy exudate or other lesions. CHEST: Clear to auscultation. No respiratory distress. No wheezes rales or rhonchi HEART: Regular rate and rhythm. No murmur heard. Normal peripheral pulses. EXTREMITIES: Normal range of motion. No edema. SKIN: Warm, dry, no rash. NEURO: No focal deficits. Alert and oriented x3. PSYCH: Normal mood and affect Course Course Emergency Course: patient updated on his workup and agrees with plan of care Vital Signs Vital signs: Vital Signs Temperature 97.5 F L 04/19/25 10:10 Pulse Rate 69 04/19/25 10:10 Respiratory Rate 18 04/19/25 10:10 Blood Pressure 139/74 04/19/25 10:10 Pulse Oximetry 100 04/19/25 10:10 Oxygen Delivery Room Air 04/19/25 10:10 Temperature 98.4 F 04/19/25 14:51 Pulse Rate 60 04/19/25 14:51 Respiratory Rate 21 H 04/19/25 14:51 Blood Pressure 118/80 04/19/25 14:51 Pulse Oximetry 99 04/19/25 14:51 Oxygen Delivery Room Air 04/19/25 10:10 MDM - Chest Pain MDM Narrative Medical decision making narrative: Patient presents to the emergency department for lightheadedness, nausea, possibly dehydration. Reporting intermittent chest pains. He is afebrile and nontoxic appearing. His vitals are stable. Cbc without leukocytosis. Shows normocytic anemia hemoglobin of 13.1. Metabolic panel with some evidence of mild dehydration, mild hypokalemia. Patient hydrated with a L of IV fluids, potassium replaced. Magnesium is normal. Urine is normal. EKG without acute ST changes and baseline and 3 hour troponin are negative. Chest x-ray without acute cardiopulmonary abnormality. Patient updated on his workup and agrees with plan of care. He is to follow up with primary provider. He was given warnings to return to the ER Differential Diagnosis Differential diagnosis: Likely stable angina, atypical chest pain, costochondritis and other (anxiety, dehydration, electrolyte derangement) Lab Data Attestation: I reviewed the patient's lab results. 04/19/25 10:27 04/19/25 10:27 Labs: Lab Results 04/19/25 04/19/25 04/19/25 Range/Units 10:27 11:24 13:20 WBC 6.9 (4.5-10.0) K/mm3 RBC 4.09 L (4.6-6.20) M/mm3 Hgb 13.1 L (14.0-18.0) g/dL Hct 38.3 L (42.0-52.0) % MCV 93.6 (80-100) fl MCH 32.0 (26-34) pg MCHC 34.2 (32-36) g/dl RDW 12.9 (11.5-14.5) % Plt Count 228 (150-375) k/mm3 MPV 9.9 (7.4-10.4) fl Immature Gran % (Auto) 0.4 (0-0.5) % Neut % (Auto) 70.1 (45.5-73.1) % Lymph % (Auto) 21.0 (18.3-44.2) % [place] % (Auto) 7.0 (2.6-8.5) % Eos % (Auto) 0.9 (0-4.4) % Baso % (Auto) 0.6 (0.2-1.2) % Lymph # (Auto) 1.45 (0.9-3.2) K/mm3 [place] # (Auto) 0.5 (0.1-0.6) K/mm3 Eos # (Auto) 0.1 (0-0.3) K/mm3 Baso # (Auto) 0.0 (0.0-0.1) K/mm3 Abs Immat Gran (auto) 0.03 (0.00-0.031) K/mm3 Absolute Neuts (auto) 4.8 (1.3-6.7) K/mm3 Absolute Nucleated RBC 0.000 (0.0-0.012) K/mm3 Nucleated RBC % 0.0 (0.0-0.2) % PT 13.2 (11.1-14.7) Seconds INR 1.0 APTT 24.0 (22.3-36.8) Seconds Sodium 139 (137-145) mmol/L Potassium 3.2 L (3.4-5.0) mmol/L Chloride 106 (98-107) mmol/L Carbon Dioxide 24 (22-30) mmol/L Anion Gap 9 (4-12) mmol/L BUN 24 H (9-20) mg/dL Creatinine 1.38 H (0.7-1.3) mg/dL Estim Creat Clear Calc 57 ml/min Estimated GFR 55 L (59 - ) Glucose 143 H (65-110) mg/dL Calcium 9.6 (8.4-10.2) mg/dL Magnesium 2.1 (1.6-2.3) mg/dL Total Bilirubin 0.3 (0.2-1.3) mg/dL AST 27 (17-59) U/L ALT 36 (6-50) U/L Alkaline Phosphatase 56 (38-126) U/L Total Creatine Kinase 176 H (55-170) U/L Troponin I < 0.012 < 0.012 (0.000-0.034) ng/mL Total Protein 7.0 (6.3-8.2) g/dL Albumin 4.5 (3.5-5.1) g/dL Lipase 196 (23-300) U/L Urine Color Yellow (Yellow) Urine Appearance Clear (Clear) Urine pH 7.5 (5.0-9.0) Ur Specific [place] 1.008 (1.001-1.035) Urine Protein Negative (Negative) mg/dL Urine Glucose (UA) Negative (Negative) mg/dL Urine Ketones Negative (Negative) mg/dL Ur Blood (Man) Negative (Negative) Urine Nitrate Negative (Negative) Urine Bilirubin Negative (Negative) Urine Urobilinogen 0.2 (<2.0) mg/dL Leukocyte Esterase Rfl Negative (Negative) WILMAN/UL Imaging Data Radiologist's impression: ITS Impressions Chest X-Ray 04/19/25 11:00 IMPRESSION: 1: NO ACUTE CARDIOPULMONARY DISEASE. ECG Data EKG #1: ECG completion date: 04/19/25 EKG Interpretation: normal rate, sinus rhythm, no ST changes and normal QT Critical Care Time Critical Care Time Critical Care Time: No Discharge Plan Discharge Clinical Impression: Acute dehydration, Atypical chest pain, Acute hypokalemia Patient Disposition: Home Condition: Stable Instructions: Chest Pain (ED), Dehydration (ED), Hypokalemia (ED) Additional Instructions: Return to the emergency department if you experience fever, worsening chest pain, shortness of breath, abdominal pain with nausea and vomiting, you pass out, or any other symptoms that are concerning to you. Remain well hydrated Follow up with your primary care doctor Patient Language: Belarusian Prescriptions: No Action buspirone 5 mg Tablet 5 mg PO BID clonazepam 1 mg Tablet 1 mg PO TID trazodone 100 mg Tablet 100 mg PO HS escitalopram oxalate 10 mg Tablet 10 mg PO DAILY diazepam [Valium] 5 mg tablet 5 mg PO BID PRN (Reason: anxiety) Qty: 6 0RF lorazepam [Ativan] 0.5 mg tablet 0.5 mg PO BID PRN (Reason: anxiety) Qty: 7 0RF omeprazole magnesium [Prilosec OTC] 20 mg tablet,delayed release (DR/EC) 20 mg PO DAILY 14 Days Qty: 14 0RF clonazepam 0.5 mg tablet 0.5 mg PO BID PRN (Reason: anxiety) Qty: 5 0RF clonazepam 1 mg tablet 1 mg PO DAILY Qty: 1 0RF Follow-up/Referrals: Kushal Cabrales MD [Primary Care Provider] -
--- OUTSIDE RECORDS SUMMARY | 2025-04-19 11:17 | XMS_ITS | CONTINUITY OF CARE DOCUMENT ---
Author Name kaitlin madrigal Address Unknown Organization [facility] Address [address] [place] [address] Phone [phone] Care Team Providers Care Swedish Masseuse Name Role Phone Andrae Mae MD Unavailable [phone] BILLY MOREAU MD Unavailable [phone] BILLY MOREAU MD Unavailable [phone] PROBLEMS Condition Status Date Provider Notes Syncope active Nela Donahue MD Hyperlipidemia active Nela Donahue MD Anxiety active Nela Donahue MD Psoriasis active Nela Donahue MD Iron deficiency active Abdullahi Nacht Chest pain, atypical active Andrae Mae MD ENCOUNTERS Date Type Provider Location Encounter Diag nosis - In-person encounter Office Visit Andrae Mae MD [facility] Chest pain, atypical - In-person encounter Office Visit Nela Donahue MD [facility] Iron deficiency - In-person encounter Office Visit Nela Donahue MD [facility] Psoriasis - In-person encounter Office Visit Nela Donahue MD [facility] SyncopeHyperlipidemiaAnxiety VITAL SIGNS Date Observation Value Provider weight E&M 173 [lb_av] Jo-Ann wood Body Mass Index (Ratio) 26.30 kg/m2 Nicolas Mae MD blood pressure, diastolic 86 mm[Hg] Mindi alanis Jeffrey blood pressure, systolic 119 mm[Hg] Francheska orr Jeffrey oxygen saturation, oximetry 98 % [facility] pulse rate 90 /min [facility] respiratory rate E&M 12 /min [facility] weight E&M 173 [lb_av] [facility] height E&M 68 [in_i] [facility] blood pressure, cuff size regular Mindi yañez Body Mass Index (Ratio) 25.69 kg/m2 Al Rodriges blood pressure, diastolic 95 mm[Hg] Olga blood pressure, systolic 141 mm[Hg] Kylee blood pressure, cuff size regular [facility] blood pressure, diastolic 95 mm[Hg] Tom [facility] blood pressure, systolic 141 mm[Hg] Elsa [facility] pulse rate 75 /min [place] respiratory rate E&M 12 /min [place] oxygen saturation, oximetry 99 % [place] weight E&M 169 [lb_av] [place] height E&M 68 [in_i] [place] Body Mass Index (Ratio) 26.00 kg/m2 Mylene Donahue MD blood pressure, diastolic 84 mm[Hg] Olga [facility]kLog[facility] blood pressure, systolic 119 mm[Hg] Kylee Mcmullenogmino pulse rate 65 /min Joseline Bee oxygen saturation, oximetry 98 % Joseline Bee blood pressure, cuff size regular Sanjay Bee blood pressure, diastolic 84 mm[Hg] Fa ith Bee blood pressure, systolic 119 mm[Hg] Ricki th Bee respiratory rate E&M 16 /min Joseline corralr weight E&M 171 [lb_av] Joseline Bee height E&M 68 [in_i] Joseline Tabernash Body Mass Index (Ratio) 24.93 kg/m2 Mylene Donahue MD blood pressure, diastolic 77 mm[Hg] Olga nkLog blood pressure, systolic 121 mm[Hg] Kylee kLogic blood pressure, cuff size regular Tom rret blood pressure, diastolic 77 mm[Hg] Tom rret blood pressure, systolic 121 mm[Hg] Elsa miranda pulse rate 74 /min [place] y height E&M 68 [in_i] [place] y oxygen saturation, oximetry 99 % [place] respiratory rate E&M 12 /min [place] weight E&M 164 [lb_av] [place] y ALLERGIES Allergy Name Onset Date Reaction Criticality Status STATIN Muscle pains Low Criticality active CODEINE Low Criticality active RESULTS Date Observation Value Provider Reference Range Interpretation Location creatine kinase, serum 83 1/L [facility] 44-196 Normal cholesterol, non-HDL, total 197 MG/DL (CALC) [facility] <130 High cholesterol/HDL ratio, serum, percent 4.0 (calc) [facility] <5.0 Normal LDL cholesterol, serum 166 MG/DL (CALC) [facility] High triglyceride, serum, fasting 160 mg/dL [facility] <150 High HDL cholesterol, serum 65 mg/dL [facility] > OR = 40 Normal cholesterol, serum 262 mg/dL [facility] <200 High HISTORY OF MEDICATION USE Medication Status Instructions Dates Provider Indications Com ments pravastatin 20 mg tablet completed - Andrae Mae MD Crestor 10 mg tablet active TAKE 1 TABLET BY MOUTH EVERY DAY - Andrae Mae MD ascorbate calcium (vitamin C) 500 mg tablet active ergocalciferol (vitamin D2) 1,250 mcg (50,000 unit) capsule active Vraylar 3 mg capsule active FeroSul 325 mg (65 mg iron) tablet active TAKE 1 TABLET BY MOUTH DAILY trazodone 50 mg tablet active propranolol 20 mg tablet active omeprazole 40 mg capsule,delayed release(DR/EC) active atorvastatin 40 mg tablet completed - Nela Donahue MD clonazepam 1 mg tablet active Skyrizi 150 mg/mL pen injector active SOCIAL HISTORY Date Observation Value Provider smoking history, tot al pack/day 1/ Nela Donahue MD cigarette use yes Nela Donahue MD smoking status Current every day smoker Naveed Donahue MD social history reviewed E&M revi ewed - no changes required Nela Donahue MD social history E&M Eric works in [employer] N o drug use Smoking History: P evan currently smokes every day. Nela Donahue MD smoking status Current every day smoker Corbin Bee social history reviewed E&M revi ewed - no changes required Nela Donahue MD social history E&M He works in [employer] for [employer] N o drug use Nela Donahue MD smoking history, tot al pack/day 1/ [place] cigarette use yes [place] smoking status Current every day smoker J deisy INSURANCE PROVIDERS Payer name Policy type / Coverage type Luz Marina red constitution party ID [employer] CHOICE POS II [employer] insurance company [id number] ADVANCE DIRECTIVES Name Date DISCUSSED - NO DECISION MADE TREATMENT PLAN Date Name Performer [id number],C,No recurrence Nela Donahue MD [id number],C,M uscle pains and fatigue have improved since d/c Atorvastatin B [place] in 6 weeks and f/u R eccommend berberine and red yeast for LDL control based on lipid panel Nela Donahue MD [id number],C,C ontinues on Propanolol at present F ollowing with Psychiatry Nela Donahue MD [id number],C,O n Skyrizi F ollowing with pcp Nela Donahue MD [id number],C,H e is feeling well now but continues to feel fatigued and is having joint pains. Advised to d/c Atorvastatin Nela Donahue MD [id number],C,4 weeks ago he woke up and had episode of syncope, he lost feeling in his legs, no LOC. He was sick for 1 month prior to episode. He went to [facility] and had bloodwork done - was told Potassium was severely low, Cr was abnormal, and had ECHO done. He was in ICU for 4 days and started Potassium and discharged. We will obtain details from ICU stay. He plans to see Dr. Schumacher Lime Boiler October 31 for Creatinine levels N o further episodes of syncope. Advised to d/c running 30+ miles/week in meantime Nela Donahue MD Cardiology Andrae Mae MD Cardiology:atypical sx, reasonable toproceed with ischemic workup with a routine stress and echo Andrae Mae MD Cardiology: N o recurrence [facility]:recieving supplmental iron, follows with hematology [facility]: C ontinues on Propanolol at present F ollowing with Psychiatry [facility] Cardiology:Recent la b results show LDL 166, TRIGs 160, LP(a) 198 R eccommend berberine 2 capsules daily and red yeast for LDL control based on lipid panel I do not recommend a statin as the patient exercises intensely and could experience muscel soreness Nela Donahue MD Cardiology:No recurrence Deandre Donahue MD Cardiology:Muscle pa ins and fatigue have improved since d/c Atorvastatin [place] in 6 weeks and f/u R eccommend berberine and red yeast for LDL control based on lipid panel Nela Donahue MD Cardiology:Continues on Propanolol at present F ollowing with Psychiatry Nela Donahue MD Cardiology:On Skyriz i F ollowing with pcp Nela Donahue MD Cardiology:He is fee ling well now but continues to feel fatigued and is having joint pains. Advised to d/c Atorvastatin Nela Donahue MD Cardiology:4 weeks a go he woke up and had episode of syncope, he lost feeling in his legs, no LOC. He was sick for 1 month prior to episode. He went to [facility] and had bloodwork done - was told Potassium was severely low, Cr was abnormal, and had ECHO done. He was in ICU for 4 days and started Potassium and discharged. We will obtain details from ICU stay. He plans to see Dr. Schumacher L[facility] Boiler October 31 for Creatinine levels N o further episodes of syncope. Advised to d/c running 30+ miles/week in meantime Nela Donahue MD Date Name Stress Routine Complete Echo Aldolase CREATINE KINASE, TOT AL Lipoprotein (a) LIPID PANEL HISTORY OF PROCEDURES Procedure Date Procedure Name Provider Procedure Notes S tatus Complex e/m visit add on Andrae Mae MD completed EKG Andrae Mae MD completed GIANNI Donahue MD complet ed GIANNI Donahue MD complet ed
--- OUTSIDE RECORDS SUMMARY | 2025-04-19 11:17 | XMS_ITS | Patient Health Record ---
Author Organization [facility] Address [address] [place] [address] Care Team Providers Care Cafe Lead Name Role Phone Cecil Figueredo Primary Care Provider Lulu Wade [phone] Allergies Allergen (clinical drug ingredient) Drug/Non Drug Allergy documented on EMR Reaction Allergy Type Onset Date Status Wellbutrin shortness of breath Drug Allergy Active Reason For Referral No Information Medications Medication SIG (Take, Route, Frequency, Duration) Notes Start Date End Date Status Vraylar 3 MG 1 capsule Orally at night for 30 days Active Atorvastatin Calcium 40 mg TAKE 1 TABLET BY MOUTH DAILY for 30 Active Vivitrol 380 MG 4 ml Intramuscular every 4 weeks for 28 days Not-Taking Vistaril 25 MG 1-2 capsules orally twice a day as needed for anxiety for 14 days 08/01/2022 Not-Taking NAC 600 MG 1 capsule Orally Twice a day Not-Taking Remeron 15 MG 1/2 tablet for a week then stop Orally Once a day for appetite Not-Taking Naltrexone HCl 50 MG 1 tablet Orally Once a day for 30 day(s) 10/24/2020 Not-Taking clonazePAM 0.5 mg TAKE 1 TABLET BY MOUTH DAILY NEEDED FOR SEVERE ANXIETY for 10 10/30/2022 Active Ramelteon 8 MG 1 tablet at bedtime as needed Orally at night for 30 days 07/04/2021 Not-Taking Propranolol HCl 20 MG 1.5 tablet Orally Twice a day for 30 days Active FLUoxetine HCl 60 MG 1 tablet Orally Once a day for 30 days Not-Taking KlonoPIN 0.5 MG 1 tablet Orally once daily as needed for severe anxiety for 10 days 12/06/2022 Active Campral 333MG two tablets orally Three Times a day for 30 days Not-Taking Melatonin 5 MG 2 Sublingual at night 03/02/2022 Active Inderal LA 60 MG 1 capsule Orally Once a day for 30 day(s) for tension headaches Not-Taking Social History Tobacco Use: Social History Observation Description Date Details (start date - stop date) Current Smoker NA - NA Sex Assigned At : Social History Observation Description Sex Assigned At Male Dont use, Tobacco Use/Smoking Question Answer Notes Are you a current every day smoker Additional Findings: Tobacco User Moderate cigar ette smoker (10-19 cigs/day) Alcohol Screen (Audit-C) Question Answer Notes Did you have a drink containing alcohol in the p ast year? No Section Notes: [id number] 01/18/2022 01/18/2022 clonazePAM 15.0 15.0 0.5 MG NA Lulu Wade L, Msn, [facility] - [id number] [place] 1 [id number] 01/18/2022 01/18/2022 clonazePAM 15.0 15.0 0.5 MG NA Lulu Wade L, Msn, [facility] - [id number] [place] 1 [id number] 10/23/2021 10/23/2021 clonazePAM 20.0 20.0 0.5 MG NA Lulu Wade L, Msn, [facility] - [id number] 10/23/2021 10/23/2021 clonazePAM 20 20 0.5 MG NA Lulu Wade L, Msn, [facility] - [id number] [place] [address] [id number] 09/04/2021 09/04/2021 clonazePAM 30 30 0.5 MG Lulu Castañeda L, Msn, [facility] - [id number] [employer] [place], [place] 1 [id number] 07/31/2021 07/25/2021 clonazePAM 30 30 0.5 MG Lulu Castañeda L, Msn, [facility] [id number] [employer] [place], [place] 1 [id number] 07/04/2021 07/04/2021 clonazePAM 30 30 0.5 MG NA Lulu Wade L, Msn, [facility] [id number] [place] [address] [id number] 05/17/2021 05/17/2021 clonazePAM 30 30 0.5 MG NA Wade [id number] 10/23/2021 10/23/2021 clonazePAM 20.0 20.0 0.5 MG NA Lulu Wade L, Msn, [facility] [id number] [employer] [place], [place] NA [place] 1 [id number] 09/04/2021 09/04/2021 clonazePAM 30.0 30.0 0.5 MG NA Lulu Wade L, Msn, [facility] [id number] [place] 1 [id number] 07/31/2021 07/25/2021 clonazePAM 30.0 30.0 0.5 MG NA Lulu Wade L, Msn, [facility] [id number] [employer] [place], [place] NA 0 [place] 1 [id number] 07/04/2021 07/04/2021 clonazePAM 30.0 30.0 0.5 MG NA Lulu Wade L, Msn, [facility] [id number] [employer] [place], [place] NA 0 [place] 1 [id number] 05/17/2021 05/17/2021 clonazePAM 30.0 30.0 0.5 MG NA Wade [id number] 01/18/2022 01/18/2022 clonazePAM 15.0 15.0 0.5 MG NA Lulu Wade L, Msn, [facility] [id number] [employer] [place], [place] NA 0 [place] 1 [id number] 01/18/2022 01/18/2022 clonazePAM 15.0 15.0 0.5 MG NA Lulu Wade L, Msn, [facility] [id number] [place] 1 [id number] 10/23/2021 10/23/2021 clonazePAM 20.0 20.0 0.5 MG NA Lulu Wade L, Msn, [facility] [id number] 03/23/2022 03/23/2022 LORazepam 7.0 3 0.5 MG NA Libia Willingham L ([facility]) [id number] [place], [place] NA 0 [place] 1 [id number] 01/18/2022 01/18/2022 clonazePAM 15.0 15 0.5 MG NA Lulu Wade L, Msn, [facility] [id number] [place] [place], [place] NA [place] 1 [id number] 01/18/2022 01/18/2022 clonazePAM 15.0 15 0.5 MG NA Lulu Wade L, Msn, [facility] [id number] [place] NA 0 [place] 1 [id number] 10/23/2021 10/23/2021 clonazePAM 20.0 20 0.5 MG NA Lulu Wade L, Msn, [facility] [id number] [place], [place] NA 0 [place] 1 [id number] 09/04/2021 09/04/2021 clonazePAM 30.0 30 0.5 MG NA Lulu Wade L, Msn, [facility] [id number] 03/23/2022 03/23/2022 LORazepam 7.0 3 0.5 MG NA Libia Willingham L ([facility]) - [id number] [place], [place] NA 0 [place] 1 [id number] 01/18/2022 01/18/2022 clonazePAM 15.0 15 0.5 MG NA Lulu Wade L, Msn, [facility] [id number] [place] NA 0 [place] 1 [id number] 01/18/2022 01/18/2022 clonazePAM 15.0 15 0.5 MG NA Lulu Wade L, Msn, [facility] [id number] [facility] [place] [address] [id number] 10/23/2021 10/23/2021 clonazePAM 20.0 20 0.5 MG NA Lulu Wade L, Msn, [facility] [id number] [place] 1 [id number] 09/04/2021 09/04/2021 clonazePAM 30.0 30 0.5 MG NA Lulu Wade L, Msn, [facility] [id number] 05/16/2022 05/16/2022 clonazePAM 7.0 7 0.5 MG NA Lulu Wade L, Msn, [facility] [id number] [place] 1 [id number] 05/03/2022 05/03/2022 clonazePAM 5.0 5 0.5 MG NA Lulu Wade L, Msn, [facility] [id number] [place] 1 [id number] 05/02/2022 05/01/2022 Belsomra 30.0 30 20 MG NA Lulu Wade L, Msn, [facility] - [id number] [place] 1 [id number] 04/20/2022 04/11/2022 Suvorexant 30.0 30 10 MG NA Lulu Wade L, Msn, [facility] - [id number] 05/16/2022 05/16/2022 clonazePAM 7.0 7 0.5 MG NA Lulu Wade L, Msn, [facility] [id number] [place] 1 [id number] 05/03/2022 05/03/2022 clonazePAM 5.0 5 0.5 MG NA Lulu Wade L, Msn, [facility] [id number] [place] 1 [id number] 05/02/2022 05/01/2022 Belsomra 30.0 30 20 MG NA Lulu Wade L, Msn, [facility] - [id number] [place] 1 [id number] 04/20/2022 04/11/2022 Suvorexant 30.0 30 10 MG NA Lulu Wade L, Msn, [facility] - [id number] 05/16/2022 05/16/2022 clonazePAM 7.0 7 0.5 MG NA Lulu Wade L, Msn, [facility] - [id number] [place], [place] NA [place] 1 [id number] 05/03/2022 05/03/2022 clonazePAM 5.0 5 0.5 MG NA Lulu Wade L, Msn, [facility] - [id number] [employer] [place], [place] NA 0 [place] 1 [id number] 05/02/2022 05/01/2022 Belsomra 30.0 30 20 MG NA Lulu Wade L, Msn, [facility] - [id number] [place], [place] 0 [place] 1 [id number] 04/20/2022 04/11/2022 Suvorexant 30.0 30 10 MG NA Lulu Wade L, Msn, [facility] - [id number] 10/30/2022 10/30/2022 clonazePAM 10.0 10 0.5 MG NA Lulu Wade L, Msn, [facility] - [id number] [employer] [place], [place] NA 0 [place] 1 [id number] 09/19/2022 09/19/2022 clonazePAM 10.0 10 0.5 MG NA Lulu Wade L, Msn, [facility] - [id number] [place], [place] NA 0 [place] 1 [id number] 07/19/2022 07/19/2022 clonazePAM 5.0 5 0.5 MG NA Lulu Wade L, Msn, [facility] - [id number] [place], [place] NA [place] 1 [id number] 06/14/2022 06/14/2022 clonazePAM 5.0 5 0.5 MG NA Lulu Wade L, Msn, [facility] - [id number] [place], [place] NA [place] 1 [id number] 05/22/2022 05/22/2022 clonazePAM 5.0 5 0.5 MG NA Lulu Wade L, Msn, [facility] - [id number] 09/04/2021 09/04/2021 clonazePAM 30 30 0.5 MG NA Lulu Wade L, Msn, [facility] - [id number] [place] 1 [id number] 07/31/2021 07/25/2021 clonazePAM 30 30 0.5 MG NA Lulu Wade L, Msn, [facility] - [id number] [place] 1 [id number] 07/04/2021 07/04/2021 clonazePAM 30 30 0.5 MG NA Lulu Wade L, Msn, [facility] - [id number] [place] 1 [id number] 05/17/2021 05/17/2021 clonazePAM 30 30 0.5 MG NA Mauro [id number] 10/23/2021 10/23/2021 clonazePAM 20.0 20.0 0.5 MG NA Lluu Wade L, Msn, [facility] - [id number] [place], [place] NA 0 [place] 1 [id number] 09/04/2021 09/04/2021 clonazePAM 30.0 30.0 0.5 MG NA Lulu Wade L, Msn, [facility] - [id number] [place], [place] NA 0 [place] 1 [id number] 07/31/2021 07/25/2021 clonazePAM 30.0 30.0 0.5 MG NA Lulu Wade L, Msn, [facility] - [id number] [place], [place] NA 0 [place] 1 [id number] 07/04/2021 07/04/2021 clonazePAM 30.0 30.0 0.5 MG NA Lulu Wade L, Msn, [facility] [id number] [employer] [facility], [place], [place] NA 0 [place] 1 [id number] 05/17/2021 05/17/2021 clonazePAM 30.0 30.0 0.5 MG NA Wade [id number] 01/18/2022 01/18/2022 clonazePAM 15.0 15.0 0.5 MG NA Lulu Wade L, Msn, [facility] [id number] [employer] [place], [place] NA 0 [place] 1 [id number] 10/23/2021 10/23/2021 clonazePAM 20.0 20.0 0.5 MG NA Lulu Wade L, Msn, [id number] [employer] [place], [place] NA 0 [place] 1 [id number] 09/04/2021 09/04/2021 clonazePAM 30.0 30.0 0.5 MG NA Lulu Wade L, Msn, [id number] [employer] [place], [place] NA 0 [place] 1 [id number] 07/31/2021 07/25/2021 clonazePAM 30.0 30.0 0.5 MG NA Lulu Wade L, Msn, [id number] [employer] [place], [place] NA 0 [place] 1 [id number] 07/04/2021 07/04/2021 clonazePAM 30.0 30.0 0.5 MG NA Wade [id number] 01/18/2022 01/18/2022 clonazePAM 15.0 15 0.5 MG NA Lulu Wade L, Msn, [id number] [employer] [place], [place] NA 0 [place] 1 [id number] 01/18/2022 01/18/2022 clonazePAM 15.0 15 0.5 MG NA Lulu Waed L, Msn, [id number] [employer] [place], [place] NA 0 [place] 1 [id number] 10/23/2021 10/23/2021 clonazePAM 20.0 20 0.5 MG NA Lulu Wade L, Msn, [facility] [id number] [place] [place], [place] NA 0 [place] 1 [id number] 09/04/2021 09/04/2021 clonazePAM 30.0 30 0.5 MG NA Lulu aWde L, Msn, [facility] [id number] [employer] [place], [place] NA 0 [place] 1 [id number] 07/31/2021 07/25/2021 clonazePAM 30.0 30 0.5 MG NA Lulu Wade L, Msn, [facility] [id number] [employer] [place], [place] NA 0 [place] 1 [id number] 07/04/2021 07/04/2021 clonazePAM 30.0 30 0.5 MG NA Lulu Wade L, Msn, [facility] [id number] 03/23/2022 03/23/2022 LORazepam 7.0 3 0.5 MG NA Libia Willingham L ([facility]) - [id number] [place], [place] NA 0 [place] 1 [id number] 01/18/2022 01/18/2022 clonazePAM 15.0 15 0.5 MG NA Lulu Wade L, Msn, [facility] [id number] [place], [place] NA 0 [place] 1 [id number] 01/18/2022 01/18/2022 clonazePAM 15.0 15 0.5 MG NA Lulu Wade L, Msn, [facility] [id number] [place], [place] NA 0 [place] 1 [id number] 10/23/2021 10/23/2021 clonazePAM 20.0 20 0.5 MG NA Lulu Wade L, Msn, [facility] [id number] [employer] [place], [place] NA 0 [place] 1 [id number] 09/04/2021 09/04/2021 clonazePAM 30.0 30 0.5 MG NA Lulu Wade L, Msn, [facility] [id number] 05/16/2022 05/16/2022 clonazePAM 7.0 7 0.5 MG NA Lulu Wade L, Msn, [facility] - [id number] [employer] [place], [place] NA 0 [place] 1 [id number] 05/03/2022 05/03/2022 clonazePAM 5.0 5 0.5 MG NA Lulu Wade L, Msn, [facility] - [id number] [employer] [place], [place] NA 0 [place] 1 [id number] 05/02/2022 05/01/2022 Belsomra 30.0 30 20 MG NA Lulu Wade L, Msn, [facility] - [id number] [employer] [place], [place] NA 0 [place] 1 [id number] 04/20/2022 04/11/2022 Suvorexant 30.0 30 10 MG NA Lulu Wade L, Msn, [facility] - [id number] Problems Problem Type SNOMED Code ICD Code Onset Dates Problem Status W/U Status Risk Notes Problem Tobacco user (170795479) Nicotine dependence, unspecified, uncomplicated (F17.200) Active confirmed Problem Insomnia (686185643) Insomnia (G47.00) Active confirmed Problem Major depression (816876772) Major depression (F32.9) 11/07/20 Active confirmed clinically suspect Bipolar II. Worsening mood/sleep and anxiety symptoms with d/c of Zyprexa and sporadic periods of elevated moods and more talkative and grandiose like thoughts. No distinct symptoms reported by patient. Will continue to evaluate Problem Mood disorder (36447521) Mood disorder (F39) 11/07/20 Active confirmed clinically suspect Bipolar II. Worsening mood/sleep and anxiety symptoms with d/c of Zyprexa and sporadic periods of elevated moods and more talkative and grandiose like thoughts. No distinct symptoms reported by patient. Will continue to evaluate Problem Generalized anxiety disorder (29311952) ASHWIN (generalized anxiety disorder) (F41.1) 11/07/20 Active confirmed Problem Panic disorder (667767473) Panic disorder (F41.0) Active confirmed Problem Panic attack (008327963) Panic attack (F41.0) Active confirmed Problem Bipolar disorder (62712788) Bipolar disorder (F31.9) 04/11/20 Active confirmed History of Worsening mood/sleep and anxiety symptoms with d/c of Zyprexa and sporadic periods of elevated moods and more talkative and grandiose like thoughts. Now with 2 week period of decreased need for sleep with increased energy and racing thoughts causing functional impairment in ability to manage day to day activities secondary to symptoms Problem Alcohol use disorder (1971066583) Alcohol use disorder (F10.99) 11/07/20 Active confirmed Problem 36099474 Depression, unspecified depression type (F32.9) 10/24/20 Active confirmed Problem Panic disorder (355685771) Panic attacks (F41.0) 01/11/20 Active confirmed Problem 099377393 Alcohol use disorder, severe, dependence (F10.20) Active confirmed Problem 980750951 Tobacco use disorder (F17.200) 11/07/20 Active confirmed Problem 14017374 Hypogonadism male (E29.1) Active confirmed Plan Of Treatment No Information Insurance Providers Payer Name Payer Address Payer Phone Subscriber Number Group Number Insured Name Patient Relationship to Insured Coverage Start Date Coverage End Date [facility] [address] [place] [phone] [id number] Elder Sexton Self - patient is the insured [address] [address] [id number] Kelly Elder Sexton Self - patient is the insured [address] [phone] [id number] DarshanElder Self - patient is the insured 0 Medications Administered Medication Instructions Date of Administration Dosage Notes Vivitrol 11/03/2020 380 mg Manufact by Carloz kim Pt osmar well. Vivitrol 12/01/2020 380 mg [employer] Translation Pt tolerated injection well. Patient voiced no questions or concerns Vivitrol 12/29/2020 380 mg ticket scheduler-Alkermes Pt tolerated injection well. Pt voiced no questions or concerns. Vivitrol 01/27/2021 380 mg Manufact by Carloz kim pt osmar well. Vivitrol 02/24/2021 380 mg Pt osmar well. Vivitrol 03/24/2021 380 mg [employer] A lkermes. Pt tolerated well. Voiced no questions or concerns at present time. Vivitrol 04/21/2021 380 mg [employer] A lkermes. Pt tolerated well. Voiced no questions or concerns at present time. Medical (General) History Surgical History Surgery Date(Month/Year) pectoralis excavatum surgery 1980 Hospitalization History Reason Date(Month/Year) pectoralis excavatum surgery 1981
--- OUTSIDE RECORDS SUMMARY | 2025-04-19 11:17 | XMS_ITS | Patient Health Record ---
Author Organization [facility] As [employer] [facility] Address [address] [facility] [address] [place] [address] Care Team Providers Care Cheese Weigher Name Role Phone Kushal Cabrales MD Primary Care Provider UnavailSmiley Han Unavailable [phone] Makayla Grant Unavailable [phone] Ariel Chan Unavailable [phone] Ashlie Esquivel Unavailable [phone] Cal Alarcon Unavailable [phone] Allergies No Known Allergies Results Component Value Reference Range Notes UDT Reviewed date:08/28/2024 01:28:14 PM Interpretation: Performing Lab: Notes/Report: THC n 0 - 50 ng/ml Cocaine n 0 - 300 ng/ml Amphetamine n 0 - 1000 ng/ml Buprenorphine (BUP) n 0 - 10 ng/ml Secobarbital (Bar) n 0 - 300 ng/ml Oxazepam (BZO) n 0 - 300 ng/ml 4-ibcuwmkiah-5,1-ywotstuh-1, 3-dipheny lpyrrolidine (EDDP) n 0 - 300 ng/ml Methamphetamine (MET) n 0 - 1000 ng/ml Methylenedioxymethamphetamine (MDMA) n 0 - 500 ng/ml Morphine (MOP 300/NEQ3609) n 0 - 300 ng/ml Methadone (MTD) n 0 - 300 ng/ml Phencyclidine (PCP) n 0 - 25 ng/ml Nortriptyline (TCA) n 0 - 1000 ng/ml Oxycodone n 0 - 300 ng/ml x n 0 - 300 ng/ml CBC (INCLUDES DIFF/PLT) (299 9) Reviewed date:10/30/2024 08:26:05 AM Interpretation: Performing Lab:BRENDA [place] [id number] Administration Héctor Reyes GdeyjqtKA[address] [facility] Notes/Report: WHITE BLOOD CELL COUNT 6.6 3.8-10.8 Thousand/uL RED BLOOD CELL COUNT 4.28 4.20-5.80 Million/uL HEMOGLOBIN 13.6 13.2-17.1 g/dL HEMATOCRIT 40.6 38.5-50.0 % MCV 94.9 80.0-100.0 fL MCH 31.8 27.0-33.0 pg MCHC 33.5 32.0-36.0 g/dL For adults, a slight decrease in the calculated MCHC value (in the range of 30 to 32 g/dL) is most likely not clinically significant; however, it should be interpreted with caution in correlation with other red cell parameters and the patient's clinical condition. RDW 12.8 11.0-15.0 % PLATELET COUNT 273 140-400 Thousand/uL MPV 10.3 7.5-12.5 fL ABSOLUTE NEUTROPHILS [phone] cells/uL ABSOLUTE LYMPHOCYTES 0782 577-8443 cells/uL ABSOLUTE MONOCYTES 469 200-950 cells/uL ABSOLUTE EOSINOPHILS 337 15-500 cells/uL ABSOLUTE BASOPHILS 79 0-200 cells/uL NEUTROPHILS 59.8 LYMPHOCYTES 26.8 MONOCYTES 7.1 EOSINOPHILS 5.1 BASOPHILS 1.2 HEPATIC FUNCTION PANEL (1025 6) Reviewed date:10/30/2024 08:26:00 AM Interpretation: Performing Lab:BRENDA EmbranePemiscot Memorial Health SystemsVqeca45133 Administration Héctor Reyes CuviqeoZN[address] [facility] Notes/Report: PROTEIN, TOTAL 6.3 6.1-8.1 g/dL ALBUMIN 4.0 3.6-5.1 g/dL GLOBULIN 2.3 1.9-3.7 g/dL (calc) ALBUMIN/GLOBULIN RATIO 1.7 1.0-2.5 (calc) BILIRUBIN, TOTAL 0.3 0.2-1.2 mg/dL BILIRUBIN, DIRECT 0.1 < OR = 0.2 mg/dL BILIRUBIN, INDIRECT 0.2 0.2-1.2 mg/d L (calc) ALKALINE PHOSPHATASE 51 36-130 U/L AST 13 10-40 U/L ALT 23 9-46 U/L VITAMIN D,25-OH,TOTAL,IA (17 306) Reviewed date:10/30/2024 08:29:40 AM Interpretation: Performing Lab:Leeanna VELAa10101 Renetta FicthaKS[address] Mehran Alvarado MD Notes/Report: VITAMIN D,25-OH,TOTAL,IA 24 30-100 ng/mL Vitamin D Status 25-OH Vitamin D: Deficiency: <20 ng/mL Insufficiency: 20 - 29 ng/mL Optimal: > or = 30 ng/mL For 25-OH Vitamin D testing on patients on D2-supplementation and patients for whom quantitation of D2 and D3 fractions is required, the QuestAssureD(TM) 25-OH VIT D, (D2,D3), LC/MS/MS is recommended: order code 53503 (patients >2yrs). See Note 1 Note 1 For additional information, please refer to http://education.[employer]/faq/FA Q199 (This link is being provided for informational/ educational purposes only.) TSH W/REFLEX TO FT4 (49886) Reviewed date:10/30/2024 08:25:41 AM Interpretation: Performing Lab:Leeanna [facility] [id number] Administration Héctor Reyes [place] [address] Mehran Alvarado Notes/Report: TSH W/REFLEX TO FT4 2.19 0.40-4.50 mIU/L VITAMIN B12 (927) Reviewed date:10/30/2024 08:25:47 AM Interpretation: Performing Lab:Leeanna VELAa10101 Renetta FitchaKS[address] Mehran Alvarado MD Notes/Report: VITAMIN B12 803 329-8219 pg/mL HEMOGLOBIN A1c (496) Reviewed date:10/30/2024 08:25:54 AM Interpretation: Performing Lab:Leeanna GUTIERREZ11636 Administration Héctor Reyes PmstoddWP[address] Thuy-Lieu Thi Vo Notes/Report: HEMOGLOBIN A1c 5.3 <5.7 % of total Hgb For the purpose of screening for the presence of diabetes: <5.7% Consistent with the absence of diabetes 5.7-6.4% Consistent with increased risk for diabetes (prediabetes) > or =6.5% Consistent with diabetes This assay result is consistent with a decreased risk of diabetes. Currently, no consensus exists regarding use of hemoglobin A1c for diagnosis of diabetes in children. According to [place] Diabetes Association (ADA) guidelines, hemoglobin A1c <7.0% represents optimal control in non- diabetic patients. Different metrics may apply to specific patient populations. Standards of Medical Care in Diabetes(ADA). COMPREHENSIVE METABOLIC PANE L (57779) Reviewed date:10/30/2024 08:26:14 AM Interpretation: Performing Lab:BRENDA EmbraneTip or Skip [place] [address] Administration Héctor Reyes QzjdaeoPP[address] Mehran Osorio Notes/Report: GLUCOSE 109 65-99 mg/dL Fasting reference interval For someone without known diabetes, a glucose value between 100 and 125 mg/dL is consistent with prediabetes and should be confirmed with a follow-up test. UREA NITROGEN (BUN) 18 7-25 mg/dL CREATININE 1.27 0.60-1.29 mg/dL EGFR 70 > OR = 60 mL/min/1.73m2 BUN/CREATININE RATIO SEE NOTE: 6-22 (calc) Not Reported: BUN and Creatinine are within reference range. SODIUM 140 135-146 mmol/L POTASSIUM 4.0 3.5-5.3 mmol/L CHLORIDE 106 98-110 mmol/L CARBON DIOXIDE 27 20-32 mmol/L CALCIUM 8.9 8.6-10.3 mg/dL PROTEIN, TOTAL 6.3 6.1-8.1 g/dL ALBUMIN 4.0 3.6-5.1 g/dL GLOBULIN 2.3 1.9-3.7 g/dL (calc) ALBUMIN/GLOBULIN RATIO 1.7 1.0-2.5 (calc) BILIRUBIN, TOTAL 0.3 0.2-1.2 mg/dL ALKALINE PHOSPHATASE 51 36-130 U/L AST 13 10-40 U/L ALT 23 9-46 U/L LIPID PANEL, STANDARD (7600) Reviewed date:10/30/2024 08:26:35 AM Interpretation: Performing Lab:BRENDA EmbraneTip or Skip Neuvk75086 Administration Héctor Reyes GknwajzFH[address] SvetaTiffanie Osorio Notes/Report: CHOLESTEROL, TOTAL 248 <200 mg/dL HDL CHOLESTEROL 50 > OR = 40 mg/dL TRIGLYCERIDES 166 <150 mg/dL LDL-CHOLESTEROL 167 Reference range: <100 Desirable range <100 mg/dL for primary prevention; <70 mg/dL for patients with CHD or diabetic patients with > or = 2 CHD risk factors. LDL-C is now calculated using the Isabella calculation, which is a validated novel method providing better accuracy than the Friedewald equation in the estimation of LDL-C. Yadiel SS et al. SADIE. 2013;310(19): 6185-9462 (http://education.[employer]/faq/F AQ164) CHOL/HDLC RATIO 5.0 <5.0 (calc) NON HDL CHOLESTEROL 198 <130 mg/dL (calc) For patients with diabetes plus 1 major ASCVD risk factor, treating to a non-HDL-C goal of <100 mg/dL (LDL-C of <70 mg/dL) is considered a therapeutic option. DRUG MONITOR, MATTIE TINOCO URI [place] (04576) Reviewed date:12/29/2024 03:26:07 PM Interpretation: Performing Lab:FUAD Studentbox Jonn-Frantz Mjfs3787 [facility] MississippiFrantzLngvDE[address] Jamal Friedman, Director - [address] [facility] RehabilitationStudent[facility] Notes/Report: FASTING: NO Alphahydroxyalprazolam NEGATIVE <25 ng/mL Alphahydroxymidazolam NEGATIVE <50 ng/mL Alphahydroxytriazolam NEGATIVE <50 ng/mL Aminoclonazepam NEGATIVE <25 ng/mL Hydroxyethylflurazepam NEGATIVE <50 ng/mL Lorazepam NEGATIVE <50 ng/mL Nordiazepam NEGATIVE <50 ng/mL Oxazepam NEGATIVE <50 ng/mL Temazepam NEGATIVE <50 ng/mL Benzodiazepines Comments See LDT Notes Notes and Comments This drug testing is for medical treatment only. Analysis was performed as non-forensic testing and these results should be used only by healthcare providers to render diagnosis or treatment, or to monitor progress of medical conditions. LDT Notes: Confirmation tests were developed and their analytical performance characteristics have been determined by [facility]. It has not been cleared or approved by the FDA. This assay has been validated pursuant to the CLIA regulations and is used for clinical purposes. Healthcare Providers needing Interpretation assistance, please contact us at [phone] ( ) M-F, 8am to 10pm EST UDT Reviewed date:10/02/2024 02:34:15 PM Interpretation: Performing Lab: Notes/Report: THC N 0 - 50 ng/ml Cocaine N 0 - 300 ng/ml Amphetamine N 0 - 1000 ng/ml Buprenorphine (BUP) N 0 - 10 ng/ml Secobarbital (Bar) N 0 - 300 ng/ml Oxazepam (BZO) N 0 - 300 ng/ml 6-mzpseeezkj-9,5-xfppmvlj-3, 3-dipheny lpyrrolidine (EDDP) N 0 - 300 ng/ml Methamphetamine (MET) N 0 - 1000 ng/ml Methylenedioxymethamphetamine (MDMA) N 0 - 500 ng/ml Morphine (MOP 300/NDF0719) N 0 - 300 ng/ml Methadone (MTD) N 0 - 300 ng/ml Phencyclidine (PCP) N 0 - 25 ng/ml Nortriptyline (TCA) N 0 - 1000 ng/ml Oxycodone N 0 - 300 ng/ml x N 0 - 300 ng/ml Reason For Referral No Information Medications Medication SIG (Take, Route, Frequency, Duration) Notes Start Date End Date Status OMEPRAZOLE MAGNESIUM 20 MG TABLET,DELAYED RELEASE *Reorder from [facility]cy for eRx and Interaction Alerts* 04/02/2024 Active Ferrous Sulfate 325 (65 Fe) MG Oral 04/02/2024 Active Rexulti 1 MG 1 tablet Orally Once a day for 30 days decreased on 10/28/24 Active SKYRIZI 150 MG/ML SUBCUTANEOUS PEN INJECTOR *Reorder from Relcy for eRx and Interaction Alerts* 04/02/2024 Active clonazePAM 0.5 MG 1 tablet Orally Once a day for 30 days As needed 03/19/2025 Active fluvoxaMINE Maleate 100 MG 0.5 tablet every morning, 1.5 tablets at bedtime Orally Once a day for 30 days Active Testosterone Enanthate 50 MG/0.5ML as directed Subcutaneous Active Vitamin C Active Ergocalciferol 1.25 MG (92957 UT) Oral 04/02/2024 Not-Taking Cholecalciferol 1.25 MG (22709 UT) 1 capsule once a week Oral see sign for 28 days 10/30/2024 Active cloNIDine HCl ER 0.1 MG 1 tablet in the morning, 2 tablets at bedtime Orally see sign for 30 days 03/19/2025 Active clonazePAM 0.5 MG 1 tablet Orally Once a day for 30 days 01/04/2025 Active Immunizations Vaccine Route Administration Date Status Comme nts Influenza virus vaccine, quadrivalent (IIV4), split virus, 0.25 mL dosage Unknown 08/13/2016 Administered Influenza virus vaccine, quadrivalent (IIV4), split virus, 0.25 mL dosage Unknown 08/04/2017 Administered Influenza, seasonal, injecta ble, preservative free, 3 yrs and above Unknown 08/24/2013 Administered Pneumococcal polysaccharide PPV23 Unknown 08/24/2013 Ad ministered Social History Tobacco Use: Social History Observation Description Date Details (start date - stop date) Current Smoker 1990 - NA Sex Assigned At : Social History Observation Description Sex Assigned At Male Household Question Answer Notes Marital status: single Number of adults in household: 1 Number of children in household: 0 Tobacco Control (Standard) Question Answer Notes Tobacco use: Current smoker When did you start smoking? 1990 How often do you smoke cigarettes? Every day How many cigarettes a day do you smoke? 5 or les s How soon after you wake up do you smoke your fir st cigarette? Within 5 minutes Are you interested in quitting? Not ready to yeni t AUDIT-C (Standard) Question Answer Notes Did you have a drink containing alcohol in the p ast year? No Section Notes: Social History Substance UseDo you or have you ever smoked tobacco?: Former smokerHow much tobacco do you smoke?: NoneDo you or have you ever used any other forms of tobacco or nicotine?: NoDo you or have you ever used e-cigarettes or vape?: Current user of electronic cigarettesDo you or have you ever used smokeless tobacco?: Never used smokeless tobaccoHow much tobacco do you chew?: noneWhat was the date of your most recent tobacco screening?: 01/27/2024Has tobacco cessation counseling been provided?: NoOn what date was tobacco cessation counseling provided?: 07/25/2023What is your level of alcohol consumption?: NoneHow many years have you consumed alcohol?: 25Do you use any illicit or recreational drugs?: NoHave you used IV drugs?: NoWhat is your level of caffeine consumption?: HeavyEducation and OccupationWhat is the highest grade or level of school you have completed or the highest degree you have received?: Some college, no degreeAre you currently employed?: YesWho is your employer?: [employer]riage and SexualityWhat is your relationship status?: SingleAre you sexually active?: YesDo you use protection during sex?: AlwaysHow many children do you have?: 0Home and EnvironmentAre there any guns present in your home?: NoAdvance DirectiveDo you have an advance directive?: NoDo you have a medical power of litigation attorney associate?: NoPublic Health and TravelHave you been to an area known to be high risk for COVID-19?: NoOtherEducation: 2 Year CollegePast steroid/HgH use?: NoGender Identity and LGBTQ IdentityAssigned sex at : MaleSexual orientation: Straight or heterosexual Social History Substance UseDo you or have you ever smoked tobacco?: Former smokerHow much tobacco do you smoke?: NoneDo you or have you ever used any other forms of tobacco or nicotine?: NoDo you or have you ever used e-cigarettes or vape?: Current user of electronic cigarettesDo you or have you ever used smokeless tobacco?: Never used smokeless tobaccoHow much tobacco do you chew?: noneWhat was the date of your most recent tobacco screening?: 01/27/2024Has tobacco cessation counseling been provided?: NoOn what date was tobacco cessation counseling provided?: 07/25/2023What is your level of alcohol consumption?: NoneHow many years have you consumed alcohol?: 25Do you use any illicit or recreational drugs?: NoHave you used IV drugs?: NoWhat is your level of caffeine consumption?: HeavyEducation and OccupationWhat is the highest grade or level of school you have completed or the highest degree you have received?: Some college, no degreeAre you currently employed?: YesWho is your employer?: [employer]riage and SexualityWhat is your relationship status?: SingleAre you sexually active?: YesDo you use protection during sex?: AlwaysHow many children do you have?: 0Home and EnvironmentAre there any guns present in your home?: NoAdvance DirectiveDo you have an advance directive?: NoDo you have a medical power of litigation attorney associate?: NoPublic Health and TravelHave you been to an area known to be high risk for COVID-19?: NoOtherEducation: 2 Year CollegePast steroid/HgH use?: NoGender Identity and LGBTQ IdentityAssigned sex at : MaleSexual orientation: Straight or heterosexual G Problems Problem Type SNOMED Code ICD Code Onset Dates Problem Status W/U Status Risk Notes Problem Vitamin D deficiency (49686231) Vitamin D deficiency, unspecified (E55.9) Active confirmed Problem 51672848 Major depressive disorder, recurrent, in full remission (F33.42) Active confirmed Problem Generalized anxiety disorder (19916198) Generalized anxiety disorder (F41.1) Active confirmed Problem 11380544 Other fatigue (R53.83) Active confirmed Problem 804727145 Insomnia, unspecified type (G47.00) Active confirmed Problem 858525311 Panic disorder (F41.0) Active confirmed Problem Low testosterone (065152000) Low testosterone (R79.89) Active confirmed Vital Signs Heart Rate 78 /min 03/19/2025 Height-cm 172.72 cm 03/19/2025 Blood pressure diastolic 88 mm Hg 03/19/2025 Weight-kg 71.21 kg 03/19/2025 Height 68.00 in 03/19/2025 Blood pressure systolic 132 mm Hg 03/19/2025 Weight 157 lbs 03/19/2025 BMI 23.87 kg/m2 03/19/2025 Encounters Encounter Location Date Provider Diagnosis [facility] [place] [address] [address] 07/09/2024 Makayla Grant [facility] [employer] [address] 07/23/2024 Ashlie Esquivel [facility] [place] [address] [facility] [address] [address] 04/23/2024 Ashlie Esquivel Generalized anxiety disorder F41.1 ; Major depressive disorder, recurrent, mild F33.0 ; Panic disorder [episodic paroxysmal anxiety] without agoraphobia F41.0 ; Insomnia, unspecified G47.00 and Alcohol abuse, in remission F10.11 [facility] [place] [facility] [address] [facility] [address] [facility] [address] [place] [address] 05/01/2024 Makayla Grant Generalized anxiety disorder F41.1 and Recurrent major depressive episodes, mild F33.0 [facility] [address] [facility] [address] [place] [address] 05/15/2024 Makayla Grant Generalized anxiety disorder F41.1 and Recurrent major depressive episodes, mild F33.0 [place] [address] [facility] [address] [place] [address] 05/28/2024 Makayla Grant Generalized anxiety disorder F41.1 and Recurrent major depressive episodes, mild F33.0 [place] [address] [facility] [address] [place] [address] 06/19/2024 Cal Alarcon Major depressive disorder, recurrent, mild F33.0 ; Generalized anxiety disorder F41.1 and Primary insomnia F51.01 [place] [address] [address] 06/25/2024 Makaylakelle Grant Generalized anxiety disorder F41.1 and Recurrent major depressive episodes, mild F33.0 [place] [address] [address] 07/08/2024 Ashlie Sierra Generalized anxiety disorder F41.1 ; Major depressive disorder, recurrent, mild F33.0 ; Panic disorder F41.0 ; Insomnia, unspecified G47.00 and Alcohol abuse, in remission F10.11 [facility] [address] [address] 07/31/2024 Makayla Grant Generalized anxiety disorder F41.1 and Recurrent major depressive episodes, mild F33.0 [place] [address] [address] 08/28/2024 Ashlie Sierra Generalized anxiety disorder F41.1 ; Major depressive disorder, recurrent, mild F33.0 ; Panic disorder F41.0 ; Insomnia, unspecified G47.00 and Alcohol abuse, in remission F10.11 [facility] [address] [address] 09/03/2024 Makayla Grant Generalized anxiety disorder F41.1 and Depression, major, recurrent, mild F33.0 [place] [address] [facility] [address] [place] [address] 10/01/2024 Smiley Lomax Generalized anxiety disorder F41.1 ; Major depressive disorder, recurrent, mild F33.0 ; Primary insomnia F51.01 ; Panic disorder F41.0 and Alcohol abuse, in remission F10.11 [place] [address] [place] [address] 10/02/2024 Makayla Grant Generalized anxiety disorder F41.1 and Recurrent major depressive episodes, mild F33.0 [place] [address] [place] [address] 10/02/2024 Ariel Dustin ASHWIN (generalized anxiety disorder) F41.1 [facility] [place] [address] [place] [address] 10/28/2024 Cal Agnes ASHWIN (generalized anxiety disorder) F41.1 and Other fatigue R53.83 [place] [address] [facility] [address] [place] [address] 10/30/2024 Makayla Grant Generalized anxiety disorder F41.1 and Depression, major, recurrent, mild F33.0 [place] [address] [place] [address] 10/30/2024 Smiley Lomax Generalized anxiety disorder F41.1 ; Major depressive disorder, recurrent, mild F33.0 ; Primary insomnia F51.01 ; Insomnia, unspecified G47.00 ; Panic disorder F41.0 ; Other fatigue R53.83 ; Alcohol abuse, in remission F10.11 and Vitamin D deficiency, unspecified E55.9 [place] [address] [place] [address] 11/13/2024 Smiley Lomax Generalized anxiety disorder F41.1 ; Panic disorder F41.0 ; Vitamin D deficiency, unspecified E55.9 ; Alcohol abuse, in remission F10.11 and Insomnia, unspecified G47.00 [place] [address] [place] [address] 11/27/2024 Makayla Grant Generalized anxiety disorder F41.1 and Depression, major, recurrent, mild F33.0 [place] [address] [place] [address] 12/11/2024 Smiley Lomax Generalized anxiety disorder F41.1 ; Panic disorder F41.0 ; Insomnia, unspecified G47.00 ; Vitamin D deficiency, unspecified E55.9 ; Low testosterone R79.89 and Alcohol abuse, in remission F10.11 [facility] [place] [address] [place] [address] 01/08/2025 Smiley Lomax Generalized anxiety disorder F41.1 ; Panic disorder F41.0 ; Insomnia, unspecified G47.00 ; Vitamin D deficiency, unspecified E55.9 ; Low testosterone R79.89 and Alcohol abuse, in remission F10.11 [facility] [place] [facility] [address] [place] [address] 02/04/2025 Smiley Lomax Generalized anxiety disorder F41.1 ; Panic disorder F41.0 ; Primary insomnia F51.01 ; Vitamin D deficiency, unspecified E55.9 ; Low testosterone R79.89 ; Encounter for screening for cardiovascular disorders Z13.6 and Encounter for screening for depression Z13.31 [place] [address] [facility] [address] [place] [address] 03/19/2025 Smiley Lomax Generalized anxiety disorder F41.1 ; Panic disorder F41.0 ; Insomnia, unspecified type G47.00 ; Major depressive disorder, recurrent, in full remission F33.42 ; Low testosterone R79.89 ; Vitamin D deficiency, unspecified E55.9 ; Negative depression screening Z13.31 ; Encounter for screening for cardiovascular disorders Z13.6 and Encounter for screening for depression Z13.31 [facility] [place] [address] [facility] [address] [place] [address] 05/04/2024 Ashlie Esquivel Insomnia, unspecifie d G47.00 [facility] [place] [address] [place] [address] 05/04/2024 Ashlie Esquivel [place] [address] [place] [address] 05/15/2024 Makayla Grant [facility] [place] [address] [place] [address] 10/30/2024 Smiley Lomax [place] [address] [place] [address] 04/19/2024 Ashlie Esquivel [facility], [facility] [address] [place] [address] 05/19/2024 [facility]lie [facility] [address] [place] [address] 06/23/2024 Ashlie [facility], [facility] [address] [place] [address] 07/06/2024 Ashlie [facility], [facility] [address] [place] [address] 07/06/2024 Ashlie [facility], [facility] [address] [place] [address] 08/14/2024 Ashlie [facility], [facility] [address] [place] [address] 09/14/2024 Ashlie [facility], [facility] [address] [place] [address] 09/14/2024 Ashlie [facility] [address] [place] [address] 09/14/2024 Ashlie [facility], [facility] [address] [place] [address] 09/14/2024 Ashlie [facility], [facility] [address] [place] [address] 09/18/2024 Ashlie Esquivel [facility], [facility] [address] [place] [address] 10/05/2024 Smiley Lomax [facility], [facility] [address] [place] [address] 10/20/2024 Smiley Lomax Panic disorder F41.0 [facility], [facility] [facility] [address] [place] [address] 10/25/2024 Smiley Lomax [facility], [facility] [address] [place] [address] 10/26/2024 Smiley Lomax [facility], [facility] [address] [place] [address] 12/20/2024 Smiley Lomax Generalized anxiety disorder F41.1 [facility], [facility] [address] [place] [address] 12/21/2024 [facility], [facility] [address] [place] [address] 12/22/2024 [facility], [facility] [address] [place] [address] 01/15/2025 [facility], [facility] [address] [place] [address] 01/16/2025 [facility], [facility] [address] [place] [address] 01/16/2025 [facility], [facility] [address] [place] [address] 02/10/2025 Smiley Lomax Panic disorder F41.0 [facility], [place] [address] [place] [address] 02/17/2025 [facility], [facility] [address] [place] [address] 02/24/2025 [facility], [facility] [address] [place] [address] 03/19/2025 Smiley Lomax Generalized anxiety disorder F41.1 [facility], [place] [address] [place] [address] 03/26/2025 [facility], [place] [address] [place] [address] 03/26/2025 [facility], [place] [address] [place] [address] 03/27/2025 Smiley Lomax Generalized anxiety disorder F41.1 Assessments Encounter Date Diagnosis (ICD Code) Assessment Notes Treatment Notes Treatment Clinical Notes Section Notes 04/23/2024 Major depressive disorder, recurrent, mild (ICD-10 - F33.0) cont rexulti 2mg daily (increased about 1 wk ago) cont trintellix 10mg daily 04/23/2024 Generalized anxiety disorder (ICD-10 - F41.1) cont propranolol 20mg BID (also trintellix, rexulti, clonazepam) started therapy with makayla started IOP today increased rexulti between visits, sees to be having some benefit, and referred to IOP, started today. will cont current meds, allow more time for effect cont IOP and individual therapy generally see IOP provider during program, then follow up here after discharged; if they do not have provider available follow up here instead note: [facility] in chart. note: trintellix, vraylar, propranolol, trazodone, clonazepam are all green. Impaired folic acid metabolizer, discussed script or OTC methylated folate, he prefers Gladys for vitamins. 05/01/2024 Generalized anxiety disorder (ICD-10 - F41.1) 48 year old single never male seen today for initial assessment to start individual therapy. Reported that he has seen Ashlie for medication therapy for the past year and half. However had seen Dr Chan prior to that five years ago. Noted that he has a hx of anxiety and depression. Believes he has suffered from both for the past 5 years. Stated that he started feeling bad just uncomfortable, hard to sit still and unable to do my job. Added that he started abusing alcohol as way of dealing with what he was feeling. Noted that he has been to rehab three times and had been sober for 14 years when he started abusing alcohol 5 years ago. Further shared that he lost a job 3 years ago due to his alcohol abuse and still feels bad about it. Client believes anxiety has been worse through out his life and has made depression what is and has been. When asked that he worries the most about, client stated, the past every stupid thing I did in the past and what people think about me. Depression symptoms include: cant leave my house, thinking negatively, no energy or motivation to do anything, and no pleasure or paty in his life. Family hx is positive for depression and anxiety(mother, sister and a maternal uncle. No psych admissions reported but stated he has been to out patient therapy in the past. Client born and raised in [place], [place] to parents who have been over 50 years. Describe childhood, I have no complaints. Relationship with parents is great but gets along better with father. Client is the youngest of two, older sister who is 50 years old. Relationship with sister is better now especially after she went thru her own mental health issues. described sister as antagonistic. Noted that he has lived with parents for the past four years but has plans of moving back to his home. Stated that sister currently lives in his house. Client added that alcohol abuse is prevalent on father's side of the family. Father is one of 12 with 8 of his siblings have alcohol abuse problems. 05/01/2024 Recurrent major depressive episodes, mild (ICD-10 - F33.0) 48 year old single never male seen today for initial assessment to start individual therapy. Reported that he has seen Ashlie for medication therapy for the past year and half. However had seen Dr Chan prior to that five years ago. Noted that he has a hx of anxiety and depression. Believes he has suffered from both for the past 5 years. Stated that he started feeling bad just uncomfortable, hard to sit still and unable to do my job. Added that he started abusing alcohol as way of dealing with what he was feeling. Noted that he has been to rehab three times and had been sober for 14 years when he started abusing alcohol 5 years ago. Further shared that he lost a job 3 years ago due to his alcohol abuse and still feels bad about it. Client believes anxiety has been worse through out his life and has made depression what is and has been. When asked that he worries the most about, client stated, the past every stupid thing I did in the past and what people think about me. Depression symptoms include: cant leave my house, thinking negatively, no energy or motivation to do anything, and no pleasure or paty in his life. Family hx is positive for depression and anxiety(mother, sister and a maternal uncle. No psych admissions reported but stated he has been to out patient therapy in the past. Client born and raised in [place], [place] to parents who have been over 50 years. Describe childhood, I have no complaints. Relationship with parents is great but gets along better with father. Client is the youngest of two, older sister who is 50 years old. Relationship with sister is better now especially after she went thru her own mental health issues. described sister as antagonistic. Noted that he has lived with parents for the past four years but has plans of moving back to his home. Stated that sister currently lives in his house. Client added that alcohol abuse is prevalent on father's side of the family. Father is one of 12 with 8 of his siblings have alcohol abuse problems. 05/04/2024 Insomnia, unspecified (ICD-10 - G47.00) 05/15/2024 Generalized anxiety disorder (ICD-10 - F41.1) Referral source Former therapist at [facility]; . Anger management Hx denied by client . Anxiety with agoraphobia(a little bit when anxiety is increased) with excessive worry(about not one specific thing but especially things he did in the past) and will his anxiety will get any better. with low energy with panic attacks with restlessness which has been long-standing(5 or 6 years but past two years has been unmanageable) aggravated by alcohol abuse difficult work, financial and/or relationship issues and relieved by compliance with medication therapy active counseling . Depression with decreased concentration with decreased energy with difficulty sleeping with feelings of guilt with inability to function with isolative behavior with sad mood which has been long-standing aggravated by alcohol abuse difficult work, financial and/or relationship issues and relieved by compliance with medication therapy active counseling . Homicidal ideation Hx denied by client. Mood lability Hx denied by client . Obsessive thoughts which are accompanied by compulsive behaviors or rituals which cause marked distress which interfere with activities of daily living which has been long-standing aggravated by alcohol abuse and relieved by compliance with medication therapy active counseling . Psychosis Hx denied by client . Sleep disturbance with difficulty falling asleep with difficulty staying asleep has been long-standing aggravated by(Unsure why); . Substance abuse alcohol(in the past, sober for 4 years in July) had been drinking daily for for 4 years; aggravated by nonparticipation in in-patient / outpatient therapy and relieved by active participation in in-patient (3 times)/ outpatient therapy . Suicidal ideation Hx denied for any attempts or suicidal thoughts . ADHD Hx denied by client. Psychotherapy Hx positive for out patient and currently attending [facility] 3 days a week; currently seeing Makayla for individual psychotherapy . 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 Current probation / parole none . History of arrests none . History of incarcerations none . Legal history none . 05/15/2024 Recurrent major depressive episodes, mild (ICD-10 - F33.0) Referral source Former therapist at [facility]; . Anger management Hx denied by client . Anxiety with agoraphobia(a little bit when anxiety is increased) with excessive worry(about not one specific thing but especially things he did in the past) and will his anxiety will get any better. with low energy with panic attacks with restlessness which has been long-standing(5 or 6 years but past two years has been unmanageable) aggravated by alcohol abuse difficult work, financial and/or relationship issues and relieved by compliance with medication therapy active counseling . Depression with decreased concentration with decreased energy with difficulty sleeping with feelings of guilt with inability to function with isolative behavior with sad mood which has been long-standing aggravated by alcohol abuse difficult work, financial and/or relationship issues and relieved by compliance with medication therapy active counseling . Homicidal ideation Hx denied by client. Mood lability Hx denied by client . Obsessive thoughts which are accompanied by compulsive behaviors or rituals which cause marked distress which interfere with activities of daily living which has been long-standing aggravated by alcohol abuse and relieved by compliance with medication therapy active counseling . Psychosis Hx denied by client . Sleep disturbance with difficulty falling asleep with difficulty staying asleep has been long-standing aggravated by(Unsure why); . Substance abuse alcohol(in the past, sober for 4 years in July) had been drinking daily for for 4 years; aggravated by nonparticipation in in-patient / outpatient therapy and relieved by active participation in in-patient (3 times)/ outpatient therapy . Suicidal ideation Hx denied for any attempts or suicidal thoughts . ADHD Hx denied by client. Psychotherapy Hx positive for out patient and currently attending [facility] 3 days a week; currently seeing Makayla for individual psychotherapy . 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 Current probation / parole none . History of arrests none . History of incarcerations none . Legal history none . 05/28/2024 Generalized anxiety disorder (ICD-10 - F41.1) 48 year old single never male seen today for initial assessment to start individual therapy. Reported that he has seen Ashlie for medication therapy for the past year and half. However had seen Dr Chan prior to that five years ago. Noted that he has a hx of anxiety and depression. Believes he has suffered from both for the past 5 years. Stated that he started feeling bad just uncomfortable, hard to sit still and unable to do my job. Added that he started abusing alcohol as way of dealing with what he was feeling. Noted that he has been to rehab three times and had been sober for 14 years when he started abusing alcohol 5 years ago. Further shared that he lost a job 3 years ago due to his alcohol abuse and still feels bad about it. Client believes anxiety has been worse through out his life and has made depression what is and has been. When asked that he worries the most about, client stated, the past every stupid thing I did in the past and what people think about me. Depression symptoms include: cant leave my house, thinking negatively, no energy or motivation to do anything, and no pleasure or paty in his life. Family hx is positive for depression and anxiety(mother, sister and a maternal uncle. No psych admissions reported but stated he has been to out patient therapy in the past. Client born and raised in [place], [place] to parents who have been over 50 years. Describe childhood, I have no complaints. Relationship with parents is great but gets along better with father. Client is the youngest of two, older sister who is 50 years old. Relationship with sister is better now especially after she went thru her own mental health issues. described sister as antagonistic. Noted that he has lived with parents for the past four years but has plans of moving back to his home. Stated that sister currently lives in his house. Client added that alcohol abuse is prevalent on father's side of the family. Father is one of 12 with 8 of his siblings have alcohol abuse problems. 05/28/2024 Recurrent major depressive episodes, mild (ICD-10 - F33.0) 48 year old single never male seen today for initial assessment to start individual therapy. Reported that he has seen Ashlie for medication therapy for the past year and half. However had seen Dr Chan prior to that five years ago. Noted that he has a hx of anxiety and depression. Believes he has suffered from both for the past 5 years. Stated that he started feeling bad just uncomfortable, hard to sit still and unable to do my job. Added that he started abusing alcohol as way of dealing with what he was feeling. Noted that he has been to rehab three times and had been sober for 14 years when he started abusing alcohol 5 years ago. Further shared that he lost a job 3 years ago due to his alcohol abuse and still feels bad about it. Client believes anxiety has been worse through out his life and has made depression what is and has been. When asked that he worries the most about, client stated, the past every stupid thing I did in the past and what people think about me. Depression symptoms include: cant leave my house, thinking negatively, no energy or motivation to do anything, and no pleasure or paty in his life. Family hx is positive for depression and anxiety(mother, sister and a maternal uncle. No psych admissions reported but stated he has been to out patient therapy in the past. Client born and raised in [place], [place] to parents who have been over 50 years. Describe childhood, I have no complaints. Relationship with parents is great but gets along better with father. Client is the youngest of two, older sister who is 50 years old. Relationship with sister is better now especially after she went thru her own mental health issues. described sister as antagonistic. Noted that he has lived with parents for the past four years but has plans of moving back to his home. Stated that sister currently lives in his house. Client added that alcohol abuse is prevalent on father's side of the family. Father is one of 12 with 8 of his siblings have alcohol abuse problems. 06/19/2024 Major depressive disorder, recurrent, mild (ICD-10 - F33.0) 1. Generalized Anxiety Disorder (ASHWIN): - Continue BuSpar as prescribed for maintenance. - Discontinue Trintellix and start escitalopram 10 mg, increasing to 20 mg in 30 days. - Monitor for any increase in suicidal ideation and call the provider if needed. - Reassess in 30 days. - Consider clonidine for acute anxiety episodes, checking blood pressure before use. - Continue propranolol as prescribed. 2. Major Depressive Disorder (MDD): - Discontinue Trintellix and start escitalopram 10 mg - Reassess in 30 days. 3. Insomnia: - Continue trazodone 50 mg one to two tabs as needed at bedtime. 4. Panic attacks: - Consider clonidine for acute anxiety episodes, checking blood pressure before use. - Continue propranolol as prescribed. 5. Medication management: - Review gene site testing results to optimize medication choices. - Monitor medication adherence and effectiveness through journaling. 6. Therapy: - Continue therapy with Makayla every two weeks. 7. Lifestyle modifications: - Encourage the patient to practice cognitive and grounding skills learned in IOP. - Monitor sleep, appetite, and overall well-being. Follow-up in 30 days to reassess the patient's response to the new medication regimen and overall mental health status. 06/19/2024 Generalized anxiety disorder (ICD-10 - F41.1) 1. Generalized Anxiety Disorder (ASHWIN): - Continue BuSpar as prescribed for maintenance. - Discontinue Trintellix and start escitalopram 10 mg, increasing to 20 mg in 30 days. - Monitor for any increase in suicidal ideation and call the provider if needed. - Reassess in 30 days. - Consider clonidine for acute anxiety episodes, checking blood pressure before use. - Continue propranolol as prescribed. 2. Major Depressive Disorder (MDD): - Discontinue Trintellix and start escitalopram 10 mg - Reassess in 30 days. 3. Insomnia: - Continue trazodone 50 mg one to two tabs as needed at bedtime. 4. Panic attacks: - Consider clonidine for acute anxiety episodes, checking blood pressure before use. - Continue propranolol as prescribed. 5. Medication management: - Review gene site testing results to optimize medication choices. - Monitor medication adherence and effectiveness through journaling. 6. Therapy: - Continue therapy with Makayla every two weeks. 7. Lifestyle modifications: - Encourage the patient to practice cognitive and grounding skills learned in IOP. - Monitor sleep, appetite, and overall well-being. Follow-up in 30 days to reassess the patient's response to the new medication regimen and overall mental health status. 07/08/2024 Major depressive disorder, recurrent, mild (ICD-10 - F33.0) cont rexulti 2mg daily cont therapy 07/08/2024 Generalized anxiety disorder (ICD-10 - F41.1) not taking clonidine, not helpful increase escitalopram to 20mg daily-takes am can also try hs cont buspar 5mg TID-see below cont propranolol 20mg BID cont therapy finished IOP still significant anxiety complaints, impairing. Discuss options, will increase the lexapro. He stresses over using limited clonazepam quantity with fear will need for worse later. Thinks really bad anxiety days generally 6 a month (been getting quantity #5), will increase quantity to 10, review cautions again. Does not feel the clonidine was helpful. Not taking trazodone as not helpful, discussed possible increase, he declines, also work on sleep hygiene. review r/b/se of meds, treatment course after visit: see buspar 5mg TID per IOP provider last filled 06/16/24; will send refill discuss further at next appt. (also verify is filling rexulti 2mg, not 1mg) will give note for work yesterday as appt today, discuss guidelines going forward, contact office day of, may require appt for note, etc. cont therapy f/u in 1 month, earlier if concerns notes: -reviewing past records: in past was on clonazepam TID (2019) then dropped to #5 or 7 a month, around time was in detox/alcohol treatment program -[facility] in chart. note: trintellix, vraylar, propranolol, trazodone, clonazepam are all green. Impaired folic acid metabolizer, discussed script or OTC methylated folate, he prefers Gladys for vitamins. 08/28/2024 Generalized anxiety disorder (ICD-10 - F41.1) increase buspar to 10mg TID cont escitalopram 20mg daily cont propranolol 20mg BID cont therapy UDS neg, BZO is prn some improvement with SSRI increase, but still sx. will increase buspar and work on in therapy, review r/b/se and treatment course. f/u in 1 month, earlier if concerns -discussed transition to new provider as I am leaving the practice after this month 09/03/2024 Generalized anxiety disorder (ICD-10 - F41.1) 48 year old single never male seen today for initial assessment to start individual therapy. Reported that he has seen Ashlie for medication therapy for the past year and half. However had seen Dr Chna prior to that five years ago. Noted that he has a hx of anxiety and depression. Believes he has suffered from both for the past 5 years. Stated that he started feeling bad just uncomfortable, hard to sit still and unable to do my job. Added that he started abusing alcohol as way of dealing with what he was feeling. Noted that he has been to rehab three times and had been sober for 14 years when he started abusing alcohol 5 years ago. Further shared that he lost a job 3 years ago due to his alcohol abuse and still feels bad about it. Client believes anxiety has been worse through out his life and has made depression what is and has been. When asked that he worries the most about, client stated, the past every stupid thing I did in the past and what people think about me. Depression symptoms include: cant leave my house, thinking negatively, no energy or motivation to do anything, and no pleasure or paty in his life. Family hx is positive for depression and anxiety(mother, sister and a maternal uncle. No psych admissions reported but stated he has been to out patient therapy in the past.Client born and raised in [place], [place] to parents who have been over 50 years. Describe childhood, I have no complaints. Relationship with parents is great but gets along better with father. Client is the youngest of two, older sister who is 50 years old. Relationship with sister is better now especially after she went thru her own mental health issues. described sister as antagonistic. Noted that he has lived with parents for the past four years but has plans of moving back to his home. Stated that sister currently lives in his house. Client added that alcohol abuse is prevalent on father's side of the family. Father is one of 12 with 8 of his siblings have alcohol abuse problems. 09/03/2024 Depression, major, recurrent, mild (ICD-10 - F33.0) 48 year old single never male seen today for initial assessment to start individual therapy. Reported that he has seen Ashlie for medication therapy for the past year and half. However had seen Dr Chan prior to that five years ago. Noted that he has a hx of anxiety and depression. Believes he has suffered from both for the past 5 years. Stated that he started feeling bad just uncomfortable, hard to sit still and unable to do my job. Added that he started abusing alcohol as way of dealing with what he was feeling. Noted that he has been to rehab three times and had been sober for 14 years when he started abusing alcohol 5 years ago. Further shared that he lost a job 3 years ago due to his alcohol abuse and still feels bad about it. Client believes anxiety has been worse through out his life and has made depression what is and has been. When asked that he worries the most about, client stated, the past every stupid thing I did in the past and what people think about me. Depression symptoms include: cant leave my house, thinking negatively, no energy or motivation to do anything, and no pleasure or paty in his life. Family hx is positive for depression and anxiety(mother, sister and a maternal uncle. No psych admissions reported but stated he has been to out patient therapy in the past.Client born and raised in [place] to parents who have been over 50 years. Describe childhood, I have no complaints. Relationship with parents is great but gets along better with father. Client is the youngest of two, older sister who is 50 years old. Relationship with sister is better now especially after she went thru her own mental health issues. described sister as antagonistic. Noted that he has lived with parents for the past four years but has plans of moving back to his home. Stated that sister currently lives in his house. Client added that alcohol abuse is prevalent on father's side of the family. Father is one of 12 with 8 of his siblings have alcohol abuse problems. 10/02/2024 ASHWIN (generalized anxiety disorder) (ICD-10 - F41.1) 10/20/2024 Panic disorder (ICD-10 - F41.0) 10/28/2024 Other fatigue (ICD-10 - R53.83) 1. Excessive Daytime Sleepiness - Patient reports excessive sleepiness for past two weeks, affecting work and daily functioning. - Describes feeling like a zombie and unable to drive. - Plan: a. Decrease Rexulti from 2mg to 1mg daily. b. Instruct patient to use pill cutter for 2mg tablets. c. Monitor for improvement in sleepiness. d. Obtain blood work: CBC, CMP, TSH, vitamin levels, thyroid, hemoglobin, and liver function tests. e. educated that omeprazole and clonazepam should not be taken together r/t omeprazole increasing clonazepam's side effects, including fatigue (patient's last use was yesterday). 2. Anxiety - Patient reports increased anxiety, rating it 8/10. - Clonazepam not providing adequate relief. - Plan: a. Gradually taper off Rexulti reduced to 1 mg today. b. Consider adding quetiapine extended-release at next appointment. c. Encourage continued breathing exercises, cognitive therapy, and behavioral therapy. d. encouraged to make more frequent appointments with [facility]. e. discussed IOP programs and possible inpatient hospitalization. 3. hypersomnia/insom charlie - Patient reports difficulty falling asleep and staying asleep despite extreme tiredness. - Plan: a. Address daytime sleepiness and anxiety as potential contributors. b. pt works long shifts, but has not had a change in work schedule. c. only recent change was an increase in buspar, which he reduced back to original dosing. 4. Medication Management - Current medications: escitalopram 20mg, BuSpar 10mg TID, vitamin D, iron, and omeprazole. - Plan: a. Continue current medications, except for Rexulti decrease. b. Monitor for potential drug interactions, especially between omeprazole and clonazepam. c. continue buspar at 10mg TID. 5. Follow-Up - Schedule follow-up sooner than current appointment on the with primary psychiatric provider. - Review lab results and assess medication changes effectiveness. - Advise considering inpatient care at [facility] if symptoms become unmanageable. Additional Notes: - Patient completed IOP at end of July. - Works 12-hour shifts (6 AM to 6 PM) on varying schedules. - Denies use of marijuana, alcohol, or other drugs. - Previous trials of hydroxyzine and propranolol ineffective for anxiety management. 10/28/2024 ASHWIN (generalized anxiety disorder) (ICD-10 - F41.1) 1. Excessive Daytime Sleepiness - Patient reports excessive sleepiness for past two weeks, affecting work and daily functioning. - Describes feeling like a zombie and unable to drive. - Plan: a. Decrease Rexulti from 2mg to 1mg daily. b. Instruct patient to use pill cutter for 2mg tablets. c. Monitor for improvement in sleepiness. d. Obtain blood work: CBC, CMP, TSH, vitamin levels, thyroid, hemoglobin, and liver function tests. e. educated that omeprazole and clonazepam should not be taken together r/t omeprazole increasing clonazepam's side effects, including fatigue (patient's last use was yesterday). 2. Anxiety - Patient reports increased anxiety, rating it 8/10. - Clonazepam not providing adequate relief. - Plan: a. Gradually taper off Rexulti reduced to 1 mg today. b. Consider adding quetiapine extended-release at next appointment. c. Encourage continued breathing exercises, cognitive therapy, and behavioral therapy. d. encouraged to make more frequent appointments with [facility]. e. discussed IOP programs and possible inpatient hospitalization. 3. hypersomnia/insom charlie - Patient reports difficulty falling asleep and staying asleep despite extreme tiredness. - Plan: a. Address daytime sleepiness and anxiety as potential contributors. b. pt works long shifts, but has not had a change in work schedule. c. only recent change was an increase in buspar, which he reduced back to original dosing. 4. Medication Management - Current medications: escitalopram 20mg, BuSpar 10mg TID, vitamin D, iron, and omeprazole. - Plan: a. Continue current medications, except for Rexulti decrease. b. Monitor for potential drug interactions, especially between omeprazole and clonazepam. c. continue buspar at 10mg TID. 5. Follow-Up - Schedule follow-up sooner than current appointment on the with primary psychiatric provider. - Review lab results and assess medication changes effectiveness. - Advise considering inpatient care at [facility] if symptoms become unmanageable. Additional Notes: - Patient completed IOP at end of July. - Works 12-hour shifts (6 AM to 6 PM) on varying schedules. - Denies use of marijuana, alcohol, or other drugs. - Previous trials of hydroxyzine and propranolol ineffective for anxiety management. 10/30/2024 Generalized anxiety disorder (ICD-10 - F41.1) 48 year old single never male seen today for initial assessment to start individual therapy. Reported that he has seen Ashlie for medication therapy for the past year and half. However had seen Dr Chan prior to that five years ago. Noted that he has a hx of anxiety and depression. Believes he has suffered from both for the past 5 years. Stated that he started feeling bad just uncomfortable, hard to sit still and unable to do my job. Added that he started abusing alcohol as way of dealing with what he was feeling. Noted that he has been to rehab three times and had been sober for 14 years when he started abusing alcohol 5 years ago. Further shared that he lost a job 3 years ago due to his alcohol abuse and still feels bad about it. Client believes anxiety has been worse through out his life and has made depression what is and has been. When asked that he worries the most about, client stated, the past every stupid thing I did in the past and what people think about me. Depression symptoms include: cant leave my house, thinking negatively, no energy or motivation to do anything, and no pleasure or paty in his life. Family hx is positive for depression and anxiety(mother, sister and a maternal uncle. No psych admissions reported but stated he has been to out patient therapy in the past.Client born and raised in [place], [place] to parents who have been over 50 years. Describe childhood, I have no complaints. Relationship with parents is great but gets along better with father. Client is the youngest of two, older sister who is 50 years old. Relationship with sister is better now especially after she went thru her own mental health issues. described sister as antagonistic. Noted that he has lived with parents for the past four years but has plans of moving back to his home. Stated that sister currently lives in his house. Client added that alcohol abuse is prevalent on father's side of the family. Father is one of 12 with 8 of his siblings have alcohol abuse problems. 10/30/2024 Depression, major, recurrent, mild (ICD-10 - F33.0) 48 year old single never male seen today for initial assessment to start individual therapy. Reported that he has seen Ashlie for medication therapy for the past year and half. However had seen Dr Chan prior to that five years ago. Noted that he has a hx of anxiety and depression. Believes he has suffered from both for the past 5 years. Stated that he started feeling bad just uncomfortable, hard to sit still and unable to do my job. Added that he started abusing alcohol as way of dealing with what he was feeling. Noted that he has been to rehab three times and had been sober for 14 years when he started abusing alcohol 5 years ago. Further shared that he lost a job 3 years ago due to his alcohol abuse and still feels bad about it. Client believes anxiety has been worse through out his life and has made depression what is and has been. When asked that he worries the most about, client stated, the past every stupid thing I did in the past and what people think about me. Depression symptoms include: cant leave my house, thinking negatively, no energy or motivation to do anything, and no pleasure or paty in his life. Family hx is positive for depression and anxiety(mother, sister and a maternal uncle. No psych admissions reported but stated he has been to out patient therapy in the past.Client born and raised in [place], [place] to parents who have been over 50 years. Describe childhood, I have no complaints. Relationship with parents is great but gets along better with father. Client is the youngest of two, older sister who is 50 years old. Relationship with sister is better now especially after she went thru her own mental health issues. described sister as antagonistic. Noted that he has lived with parents for the past four years but has plans of moving back to his home. Stated that sister currently lives in his house. Client added that alcohol abuse is prevalent on father's side of the family. Father is one of 12 with 8 of his siblings have alcohol abuse problems. 10/01/2024 Generalized anxiety disorder (ICD-10 - F41.1) Assessment and Plan: 1. Anxiety - Patient reports significant improvement in anxiety symptoms Plan: - Continue buspirone 10 mg TID and escitalopram (Lexapro) 20 mg daily - Encourage patient to maintain regular follow-up with therapist (Makayla). 2. Depression - Patient denies current depressive symptoms. Plan: - as above 3. Insomnia - Patient reports trazodone is not effective for sleep anymore Plan: - Discontinue trazodone. - Encourage patient to practice good sleep hygiene and consider non-pharmacologic al interventions for sleep. 4. Panic Disorder - cont. Buspar and Lexapro as presribed - cont. propanolol as needed for unmanageable anxiety/ panic episode - reports not using klonopin or clonidine lately, no refills sent Alcohol abuse, in remission - abstained for nearly 5 years. Plan: - Encourage patient to continue abstaining from alcohol Follow-up: Schedule a follow-up appointment in two months (November) to reassess patient's progress and medication management. Patient agrees to extended follow-up due to improved symptoms and upcoming holidays. 10/30/2024 Generalized anxiety disorder (ICD-10 - F41.1) Assessment and Plan: Anxiety: - reports persistent and extreme anxiety Plan: - Continue escitalopram 20 mg daily - Continue Rexulti 1 mg daily - Continue Buspirone 10 mg TID - Continue clonazepam as needed for severe anxiety episodes - Educate on risks with long-term use - Monitor for changes in anxiety levels Fatigue - Reports extreme tiredness - Recently switched to taking escitalopram and Rexulti at night, with improved symptoms Plan: - Continue current medications - Encourage taking escitalopram and Rexulti at night if it helps with fatigue - Monitor for improvement Vitamin D deficiency: - Recent lab results show low vitamin D level Plan: - Prescribe weekly vitamin D supplement - Instruct patient to pick a consistent day for supplement intake History of alcohol use disorder: - Reports being sober for four to five years Plan: - Encourage continued sobriety - Recommend participation in support groups or counseling as needed Follow up in two weeks (per his request I need to stay on top of this) to assess for any changes in fatigue and anxiety levels. 11/13/2024 Generalized anxiety disorder (ICD-10 - F41.1) Anxiety/Panic Disorder - Severe anxiety affecting daily life, work, and social activities - Panic-like symptoms with physical manifestations (arm pain, lightheadedness, restlessness) Plan: - Discontinue escitalopram - Initiate fluvoxamine for anxiety management, 50 mg x2 weeks, 100 mg therafter - Stop buspirone, ineffective, he stopped prior. - Continue clonazepam 0.5 mg twice a day as needed, encouraged mnimized use - Monitor response to new medication and adjust dosage as needed - Encourage continued therapy with Makayla Depression - Secondary to lack of quality of life due to anxiety - Not the primary issue but contributes to overall mental health concerns Plan: - Address through management of anxiety with fluvoxamine - Monitor mood and depressive symptoms during follow-up visits Insomnia - Trouble staying asleep, possibly related to anxiety Plan: - Consider sleep study to evaluate for underlying sleep disorders - Monitor sleep quality after initiating vilazodone (Viibryd) - Address sleep disturbances during follow-up visits Low Testosterone - Recently started testosterone replacement therapy Plan: - Monitor response to testosterone therapy - Adjust dosage as needed - Encourage follow-up with primary care provider for regular monitoring VItamin D Deficiency - low on recent labs Plan: - Continue replacement Follow up 4 weeks, sooner if concerns arise 12/11/2024 Generalized anxiety disorder (ICD-10 - F41.1) Anxiety/Panic Disorder - Improved, reports anxiety 20% of where it was rpeviously - Decreased frequently of panic and need for clonazepam Plan: - Increase fluvoxamine to 150 mg daily - Decrease clonazepam 0.5 mg once a day as needed, encouraged mnimized use - Continue rexulti 2 mg daily - Encourage continued therapy with Makayla Depression, secondary to anxiety and interference with life activities - Improved mood overall Plan: - Monitor mood in response to increasing fluvoxamie Insomnia - Trouble falling asleep, possibly related to anxiety Plan: - Consider sleep study to evaluate for underlying sleep disorders - Monitor sleep in response to increasing fluvoxamine - COnsider taking the once a day clonazepam dose at night if anxiety inhibiting sleep onset Low Testosterone - Recently started testosterone replacement therapy Plan: - Monitor response to testosterone therapy - Adjust dosage as needed - Encourage follow-up with primary care provider for regular monitoring VItamin D Deficiency - low on recent labs Plan: - Continue replacement Follow up 4 weeks, sooner if concerns arise 12/11/2024 Panic disorder (ICD-10 - F41.0) Anxiety/Panic Disorder - Improved, reports anxiety 20% of where it was rpeviously - Decreased frequently of panic and need for clonazepam Plan: - Increase fluvoxamine to 150 mg daily - Decrease clonazepam 0.5 mg once a day as needed, encouraged mnimized use - Continue rexulti 2 mg daily - Encourage continued therapy with Makayla Depression, secondary to anxiety and interference with life activities - Improved mood overall Plan: - Monitor mood in response to increasing fluvoxamie Insomnia - Trouble falling asleep, possibly related to anxiety Plan: - Consider sleep study to evaluate for underlying sleep disorders - Monitor sleep in response to increasing fluvoxamine - COnsider taking the once a day clonazepam dose at night if anxiety inhibiting sleep onset Low Testosterone - Recently started testosterone replacement therapy Plan: - Monitor response to testosterone therapy - Adjust dosage as needed - Encourage follow-up with primary care provider for regular monitoring VItamin D Deficiency - low on recent labs Plan: - Continue replacement Follow up 4 weeks, sooner if concerns arise 12/20/2024 Generalized anxiety disorder (ICD-10 - F41.1) 01/08/2025 Generalized anxiety disorder (ICD-10 - F41.1) Anxiety - Significant improvement, symptoms at about 20% of previous levels Plan: - Continue Rexulti 2 mg daily - Continue fluvoxamine 50 mg in the morning, 150 mg at bedtime - Decrease clonazepam 0.5 mg once a day as needed, encouraged mnimized use - Encourage continued therapy with Makayla Insomnia - Difficulty sleeping 3-4 times per month Plan: - Start mirtazapine 15 mg as needed for sleep - Option to decrease dose to 7.5 mg if necessary Caffeine cessation - Stopped consuming caffeine, reports improvement in sleep quality Plan: - Encourage continued avoidance of caffeine Weight management and exercise - Resumed running and working on losing weight Plan: - Encourage continued healthy diet and exercise habits Testosterone supplementation - Significant improvement in energy and recovery Plan: - Continue current testosterone regimen Vitamin D supplementation Plan: - Continue current vitamin D supplementation Follow-up in 1 month to monitor progress, evaluate effectiveness of mirtazapine for sleep, and address any new concerns 02/10/2025 Panic disorder (ICD-10 - F41.0) 03/19/2025 Generalized anxiety disorder (ICD-10 - F41.1) error, fluvoxamine only taking 0.5 tablet in morning, 1.5 tablet at bedtime 03/19/2025 Panic disorder (ICD-10 - F41.0) 02/04/2025 Generalized anxiety disorder (ICD-10 - F41.1) 03/19/2025 Generalized anxiety disorder (ICD-10 - F41.1) 03/27/2025 Generalized anxiety disorder (ICD-10 - F41.1) 02/04/2025 Panic disorder (ICD-10 - F41.0) 11/27/2024 Generalized anxiety disorder (ICD-10 - F41.1) 48 year old single never male seen today for initial assessment to start individual therapy. Reported that he has seen Ashlie for medication therapy for the past year and half. However had seen Dr Chan prior to that five years ago. Noted that he has a hx of anxiety and depression. Believes he has suffered from both for the past 5 years. Stated that he started feeling bad just uncomfortable, hard to sit still and unable to do my job. Added that he started abusing alcohol as way of dealing with what he was feeling. Noted that he has been to rehab three times and had been sober for 14 years when he started abusing alcohol 5 years ago. Further shared that he lost a job 3 years ago due to his alcohol abuse and still feels bad about it. Client believes anxiety has been worse through out his life and has made depression what is and has been. When asked that he worries the most about, client stated, the past every stupid thing I did in the past and what people think about me. Depression symptoms include: cant leave my house, thinking negatively, no energy or motivation to do anything, and no pleasure or paty in his life. Family hx is positive for depression and anxiety(mother, sister and a maternal uncle. No psych admissions reported but stated he has been to out patient therapy in the past.Client born and raised in [place], [place] to parents who have been over 50 years. Describe childhood, I have no complaints. Relationship with parents is great but gets along better with father. Client is the youngest of two, older sister who is 50 years old. Relationship with sister is better now especially after she went thru her own mental health issues. described sister as antagonistic. Noted that he has lived with parents for the past four years but has plans of moving back to his home. Stated that sister currently lives in his house. Client added that alcohol abuse is prevalent on father's side of the family. Father is one of 12 with 8 of his siblings have alcohol abuse problems. 11/27/2024 Depression, major, recurrent, mild (ICD-10 - F33.0) 48 year old single never male seen today for initial assessment to start individual therapy. Reported that he has seen Ashlie for medication therapy for the past year and half. However had seen Dr Chan prior to that five years ago. Noted that he has a hx of anxiety and depression. Believes he has suffered from both for the past 5 years. Stated that he started feeling bad just uncomfortable, hard to sit still and unable to do my job. Added that he started abusing alcohol as way of dealing with what he was feeling. Noted that he has been to rehab three times and had been sober for 14 years when he started abusing alcohol 5 years ago. Further shared that he lost a job 3 years ago due to his alcohol abuse and still feels bad about it. Client believes anxiety has been worse through out his life and has made depression what is and has been. When asked that he worries the most about, client stated, the past every stupid thing I did in the past and what people think about me. Depression symptoms include: cant leave my house, thinking negatively, no energy or motivation to do anything, and no pleasure or paty in his life. Family hx is positive for depression and anxiety(mother, sister and a maternal uncle. No psych admissions reported but stated he has been to out patient therapy in the past.Client born and raised in [place], [place] to parents who have been over 50 years. Describe childhood, I have no complaints. Relationship with parents is great but gets along better with father. Client is the youngest of two, older sister who is 50 years old. Relationship with sister is better now especially after she went thru her own mental health issues. described sister as antagonistic. Noted that he has lived with parents for the past four years but has plans of moving back to his home. Stated that sister currently lives in his house. Client added that alcohol abuse is prevalent on father's side of the family. Father is one of 12 with 8 of his siblings have alcohol abuse problems. 10/02/2024 Generalized anxiety disorder (ICD-10 - F41.1) 48 year old single never male seen today for initial assessment to start individual therapy. Reported that he has seen Ashlie for medication therapy for the past year and half. However had seen Dr Chan prior to that five years ago. Noted that he has a hx of anxiety and depression. Believes he has suffered from both for the past 5 years. Stated that he started feeling bad just uncomfortable, hard to sit still and unable to do my job. Added that he started abusing alcohol as way of dealing with what he was feeling. Noted that he has been to rehab three times and had been sober for 14 years when he started abusing alcohol 5 years ago. Further shared that he lost a job 3 years ago due to his alcohol abuse and still feels bad about it. Client believes anxiety has been worse through out his life and has made depression what is and has been. When asked that he worries the most about, client stated, the past every stupid thing I did in the past and what people think about me. Depression symptoms include: cant leave my house, thinking negatively, no energy or motivation to do anything, and no pleasure or paty in his life. Family hx is positive for depression and anxiety(mother, sister and a maternal uncle. No psych admissions reported but stated he has been to out patient therapy in the past.Client born and raised in [place] to parents who have been over 50 years. Describe childhood, I have no complaints. Relationship with parents is great but gets along better with father. Client is the youngest of two, older sister who is 50 years old. Relationship with sister is better now especially after she went thru her own mental health issues. described sister as antagonistic. Noted that he has lived with parents for the past four years but has plans of moving back to his home. Stated that sister currently lives in his house. Client added that alcohol abuse is prevalent on father's side of the family. Father is one of 12 with 8 of his siblings have alcohol abuse problems. 10/02/2024 Recurrent major depressive episodes, mild (ICD-10 - F33.0) 48 year old single never male seen today for initial assessment to start individual therapy. Reported that he has seen Ashlie for medication therapy for the past year and half. However had seen Dr Chan prior to that five years ago. Noted that he has a hx of anxiety and depression. Believes he has suffered from both for the past 5 years. Stated that he started feeling bad just uncomfortable, hard to sit still and unable to do my job. Added that he started abusing alcohol as way of dealing with what he was feeling. Noted that he has been to rehab three times and had been sober for 14 years when he started abusing alcohol 5 years ago. Further shared that he lost a job 3 years ago due to his alcohol abuse and still feels bad about it. Client believes anxiety has been worse through out his life and has made depression what is and has been. When asked that he worries the most about, client stated, the past every stupid thing I did in the past and what people think about me. Depression symptoms include: cant leave my house, thinking negatively, no energy or motivation to do anything, and no pleasure or paty in his life. Family hx is positive for depression and anxiety(mother, sister and a maternal uncle. No psych admissions reported but stated he has been to out patient therapy in the past.Client born and raised in [place], [place] to parents who have been over 50 years. Describe childhood, I have no complaints. Relationship with parents is great but gets along better with father. Client is the youngest of two, older sister who is 50 years old. Relationship with sister is better now especially after she went thru her own mental health issues. described sister as antagonistic. Noted that he has lived with parents for the past four years but has plans of moving back to his home. Stated that sister currently lives in his house. Client added that alcohol abuse is prevalent on father's side of the family. Father is one of 12 with 8 of his siblings have alcohol abuse problems. 07/31/2024 Generalized anxiety disorder (ICD-10 - F41.1) 48 year old single never male seen today for initial assessment to start individual therapy. Reported that he has seen Ashlie for medication therapy for the past year and half. However had seen Dr Chan prior to that five years ago. Noted that he has a hx of anxiety and depression. Believes he has suffered from both for the past 5 years. Stated that he started feeling bad just uncomfortable, hard to sit still and unable to do my job. Added that he started abusing alcohol as way of dealing with what he was feeling. Noted that he has been to rehab three times and had been sober for 14 years when he started abusing alcohol 5 years ago. Further shared that he lost a job 3 years ago due to his alcohol abuse and still feels bad about it. Client believes anxiety has been worse through out his life and has made depression what is and has been. When asked that he worries the most about, client stated, the past every stupid thing I did in the past and what people think about me. Depression symptoms include: cant leave my house, thinking negatively, no energy or motivation to do anything, and no pleasure or paty in his life. Family hx is positive for depression and anxiety(mother, sister and a maternal uncle. No psych admissions reported but stated he has been to out patient therapy in the past.Client born and raised in [place], [place] to parents who have been over 50 years. Describe childhood, I have no complaints. Relationship with parents is great but gets along better with father. Client is the youngest of two, older sister who is 50 years old. Relationship with sister is better now especially after she went thru her own mental health issues. described sister as antagonistic. Noted that he has lived with parents for the past four years but has plans of moving back to his home. Stated that sister currently lives in his house. Client added that alcohol abuse is prevalent on father's side of the family. Father is one of 12 with 8 of his siblings have alcohol abuse problems. 07/31/2024 Recurrent major depressive episodes, mild (ICD-10 - F33.0) 48 year old single never male seen today for initial assessment to start individual therapy. Reported that he has seen Ashlie for medication therapy for the past year and half. However had seen Dr Chan prior to that five years ago. Noted that he has a hx of anxiety and depression. Believes he has suffered from both for the past 5 years. Stated that he started feeling bad just uncomfortable, hard to sit still and unable to do my job. Added that he started abusing alcohol as way of dealing with what he was feeling. Noted that he has been to rehab three times and had been sober for 14 years when he started abusing alcohol 5 years ago. Further shared that he lost a job 3 years ago due to his alcohol abuse and still feels bad about it. Client believes anxiety has been worse through out his life and has made depression what is and has been. When asked that he worries the most about, client stated, the past every stupid thing I did in the past and what people think about me. Depression symptoms include: cant leave my house, thinking negatively, no energy or motivation to do anything, and no pleasure or paty in his life. Family hx is positive for depression and anxiety(mother, sister and a maternal uncle. No psych admissions reported but stated he has been to out patient therapy in the past.Client born and raised in [place], [place] to parents who have been over 50 years. Describe childhood, I have no complaints. Relationship with parents is great but gets along better with father. Client is the youngest of two, older sister who is 50 years old. Relationship with sister is better now especially after she went thru her own mental health issues. described sister as antagonistic. Noted that he has lived with parents for the past four years but has plans of moving back to his home. Stated that sister currently lives in his house. Client added that alcohol abuse is prevalent on father's side of the family. Father is one of 12 with 8 of his siblings have alcohol abuse problems. 06/25/2024 Generalized anxiety disorder (ICD-10 - F41.1) 48 year old single never male seen today for initial assessment to start individual therapy. Reported that he has seen Ashlie for medication therapy for the past year and half. However had seen Dr Chan prior to that five years ago. Noted that he has a hx of anxiety and depression. Believes he has suffered from both for the past 5 years. Stated that he started feeling bad just uncomfortable, hard to sit still and unable to do my job. Added that he started abusing alcohol as way of dealing with what he was feeling. Noted that he has been to rehab three times and had been sober for 14 years when he started abusing alcohol 5 years ago. Further shared that he lost a job 3 years ago due to his alcohol abuse and still feels bad about it. Client believes anxiety has been worse through out his life and has made depression what is and has been. When asked that he worries the most about, client stated, the past every stupid thing I did in the past and what people think about me. Depression symptoms include: cant leave my house, thinking negatively, no energy or motivation to do anything, and no pleasure or paty in his life. Family hx is positive for depression and anxiety(mother, sister and a maternal uncle. No psych admissions reported but stated he has been to out patient therapy in the past.Client born and raised in [place], [place] to parents who have been over 50 years. Describe childhood, I have no complaints. Relationship with parents is great but gets along better with father. Client is the youngest of two, older sister who is 50 years old. Relationship with sister is better now especially after she went thru her own mental health issues. described sister as antagonistic. Noted that he has lived with parents for the past four years but has plans of moving back to his home. Stated that sister currently lives in his house. Client added that alcohol abuse is prevalent on father's side of the family. Father is one of 12 with 8 of his siblings have alcohol abuse problems. 06/25/2024 Recurrent major depressive episodes, mild (ICD-10 - F33.0) 48 year old single never male seen today for initial assessment to start individual therapy. Reported that he has seen Ashlie for medication therapy for the past year and half. However had seen Dr Chan prior to that five years ago. Noted that he has a hx of anxiety and depression. Believes he has suffered from both for the past 5 years. Stated that he started feeling bad just uncomfortable, hard to sit still and unable to do my job. Added that he started abusing alcohol as way of dealing with what he was feeling. Noted that he has been to rehab three times and had been sober for 14 years when he started abusing alcohol 5 years ago. Further shared that he lost a job 3 years ago due to his alcohol abuse and still feels bad about it. Client believes anxiety has been worse through out his life and has made depression what is and has been. When asked that he worries the most about, client stated, the past every stupid thing I did in the past and what people think about me. Depression symptoms include: cant leave my house, thinking negatively, no energy or motivation to do anything, and no pleasure or ptay in his life. Family hx is positive for depression and anxiety(mother, sister and a maternal uncle. No psych admissions reported but stated he has been to out patient therapy in the past.Client born and raised in [place], [place] to parents who have been over 50 years. Describe childhood, I have no complaints. Relationship with parents is great but gets along better with father. Client is the youngest of two, older sister who is 50 years old. Relationship with sister is better now especially after she went thru her own mental health issues. described sister as antagonistic. Noted that he has lived with parents for the past four years but has plans of moving back to his home. Stated that sister currently lives in his house. Client added that alcohol abuse is prevalent on father's side of the family. Father is one of 12 with 8 of his siblings have alcohol abuse problems. 03/19/2025 Insomnia, unspecified type (ICD-10 - G47.00) 02/04/2025 Primary insomnia (ICD-10 - F51.01) 01/08/2025 Panic disorder (ICD-10 - F41.0) Anxiety - Significant improvement, symptoms at about 20% of previous levels Plan: - Continue Rexulti 2 mg daily - Continue fluvoxamine 50 mg in the morning, 150 mg at bedtime - Decrease clonazepam 0.5 mg once a day as needed, encouraged mnimized use - Encourage continued therapy with Makayla Insomnia - Difficulty sleeping 3-4 times per month Plan: - Start mirtazapine 15 mg as needed for sleep - Option to decrease dose to 7.5 mg if necessary Caffeine cessation - Stopped consuming caffeine, reports improvement in sleep quality Plan: - Encourage continued avoidance of caffeine Weight management and exercise - Resumed running and working on losing weight Plan: - Encourage continued healthy diet and exercise habits Testosterone supplementation - Significant improvement in energy and recovery Plan: - Continue current testosterone regimen Vitamin D supplementation Plan: - Continue current vitamin D supplementation Follow-up in 1 month to monitor progress, evaluate effectiveness of mirtazapine for sleep, and address any new concerns 12/11/2024 Insomnia, unspecified (ICD-10 - G47.00) Anxiety/Panic Disorder - Improved, reports anxiety 20% of where it was rpeviously - Decreased frequently of panic and need for clonazepam Plan: - Increase fluvoxamine to 150 mg daily - Decrease clonazepam 0.5 mg once a day as needed, encouraged mnimized use - Continue rexulti 2 mg daily - Encourage continued therapy with Makayla Depression, secondary to anxiety and interference with life activities - Improved mood overall Plan: - Monitor mood in response to increasing fluvoxamie Insomnia - Trouble falling asleep, possibly related to anxiety Plan: - Consider sleep study to evaluate for underlying sleep disorders - Monitor sleep in response to increasing fluvoxamine - COnsider taking the once a day clonazepam dose at night if anxiety inhibiting sleep onset Low Testosterone - Recently started testosterone replacement therapy Plan: - Monitor response to testosterone therapy - Adjust dosage as needed - Encourage follow-up with primary care provider for regular monitoring VItamin D Deficiency - low on recent labs Plan: - Continue replacement Follow up 4 weeks, sooner if concerns arise 11/13/2024 Panic disorder (ICD-10 - F41.0) Anxiety/Panic Disorder - Severe anxiety affecting daily life, work, and social activities - Panic-like symptoms with physical manifestations (arm pain, lightheadedness, restlessness) Plan: - Discontinue escitalopram - Initiate fluvoxamine for anxiety management, 50 mg x2 weeks, 100 mg therafter - Stop buspirone, ineffective, he stopped prior. - Continue clonazepam 0.5 mg twice a day as needed, encouraged mnimized use - Monitor response to new medication and adjust dosage as needed - Encourage continued therapy with Makayla Depression - Secondary to lack of quality of life due to anxiety - Not the primary issue but contributes to overall mental health concerns Plan: - Address through management of anxiety with fluvoxamine - Monitor mood and depressive symptoms during follow-up visits Insomnia - Trouble staying asleep, possibly related to anxiety Plan: - Consider sleep study to evaluate for underlying sleep disorders - Monitor sleep quality after initiating vilazodone (Viibryd) - Address sleep disturbances during follow-up visits Low Testosterone - Recently started testosterone replacement therapy Plan: - Monitor response to testosterone therapy - Adjust dosage as needed - Encourage follow-up with primary care provider for regular monitoring VItamin D Deficiency - low on recent labs Plan: - Continue replacement Follow up 4 weeks, sooner if concerns arise 10/30/2024 Major depressive disorder, recurrent, mild (ICD-10 - F33.0) Assessment and Plan: Anxiety: - reports persistent and extreme anxiety Plan: - Continue escitalopram 20 mg daily - Continue Rexulti 1 mg daily - Continue Buspirone 10 mg TID - Continue clonazepam as needed for severe anxiety episodes - Educate on risks with long-term use - Monitor for changes in anxiety levels Fatigue - Reports extreme tiredness - Recently switched to taking escitalopram and Rexulti at night, with improved symptoms Plan: - Continue current medications - Encourage taking escitalopram and Rexulti at night if it helps with fatigue - Monitor for improvement Vitamin D deficiency: - Recent lab results show low vitamin D level Plan: - Prescribe weekly vitamin D supplement - Instruct patient to pick a consistent day for supplement intake History of alcohol use disorder: - Reports being sober for four to five years Plan: - Encourage continued sobriety - Recommend participation in support groups or counseling as needed Follow up in two weeks (per his request I need to stay on top of this) to assess for any changes in fatigue and anxiety levels. 10/01/2024 Major depressive disorder, recurrent, mild (ICD-10 - F33.0) Assessment and Plan: 1. Anxiety - Patient reports significant improvement in anxiety symptoms Plan: - Continue buspirone 10 mg TID and escitalopram (Lexapro) 20 mg daily - Encourage patient to maintain regular follow-up with therapist (Makayla). 2. Depression - Patient denies current depressive symptoms. Plan: - as above 3. Insomnia - Patient reports trazodone is not effective for sleep anymore Plan: - Discontinue trazodone. - Encourage patient to practice good sleep hygiene and consider non-pharmacologic al interventions for sleep. 4. Panic Disorder - cont. Buspar and Lexapro as presribed - cont. propanolol as needed for unmanageable anxiety/ panic episode - reports not using klonopin or clonidine lately, no refills sent Alcohol abuse, in remission - abstained for nearly 5 years. Plan: - Encourage patient to continue abstaining from alcohol Follow-up: Schedule a follow-up appointment in two months (November) to reassess patient's progress and medication management. Patient agrees to extended follow-up due to improved symptoms and upcoming holidays. 04/23/2024 Panic disorder [episodic paroxysmal anxiety] without agoraphobia (ICD-10 - F41.0) cont clonazepam 0.5mg qd prn-goal rare use; last fill 03/12/24 #5 07/08/2024 Panic disorder (ICD-10 - F41.0) cont clonazepam 0.5mg qd prn-goal minimize use (increase qty #10) use coping skills 08/28/2024 Major depressive disorder, recurrent, mild (ICD-10 - F33.0) cont rexulti 2mg daily cont therapy 06/19/2024 Primary insomnia (ICD-10 - F51.01) 1. Generalized Anxiety Disorder (ASHWIN): - Continue BuSpar as prescribed for maintenance. - Discontinue Trintellix and start escitalopram 10 mg, increasing to 20 mg in 30 days. - Monitor for any increase in suicidal ideation and call the provider if needed. - Reassess in 30 days. - Consider clonidine for acute anxiety episodes, checking blood pressure before use. - Continue propranolol as prescribed. 2. Major Depressive Disorder (MDD): - Discontinue Trintellix and start escitalopram 10 mg - Reassess in 30 days. 3. Insomnia: - Continue trazodone 50 mg one to two tabs as needed at bedtime. 4. Panic attacks: - Consider clonidine for acute anxiety episodes, checking blood pressure before use. - Continue propranolol as prescribed. 5. Medication management: - Review gene site testing results to optimize medication choices. - Monitor medication adherence and effectiveness through journaling. 6. Therapy: - Continue therapy with Makayla every two weeks. 7. Lifestyle modifications: - Encourage the patient to practice cognitive and grounding skills learned in IOP. - Monitor sleep, appetite, and overall well-being. Follow-up in 30 days to reassess the patient's response to the new medication regimen and overall mental health status. 07/08/2024 Insomnia, unspecified (ICD-10 - G47.00) has avail, not been taking: trazodone 50mg, take 1-2 tabs qhs prn insomnia improve sleep hygiene 08/28/2024 Panic disorder (ICD-10 - F41.0) cont clonazepam 0.5mg qd prn-goal minimize use (increase qty #10) use coping skills 10/01/2024 Primary insomnia (ICD-10 - F51.01) Assessment and Plan: 1. Anxiety - Patient reports significant improvement in anxiety symptoms Plan: - Continue buspirone 10 mg TID and escitalopram (Lexapro) 20 mg daily - Encourage patient to maintain regular follow-up with therapist (Makayla). 2. Depression - Patient denies current depressive symptoms. Plan: - as above 3. Insomnia - Patient reports trazodone is not effective for sleep anymore Plan: - Discontinue trazodone. - Encourage patient to practice good sleep hygiene and consider non-pharmacologic al interventions for sleep. 4. Panic Disorder - cont. Buspar and Lexapro as presribed - cont. propanolol as needed for unmanageable anxiety/ panic episode - reports not using klonopin or clonidine lately, no refills sent Alcohol abuse, in remission - abstained for nearly 5 years. Plan: - Encourage patient to continue abstaining from alcohol Follow-up: Schedule a follow-up appointment in two months (November) to reassess patient's progress and medication management. Patient agrees to extended follow-up due to improved symptoms and upcoming holidays. 10/30/2024 Primary insomnia (ICD-10 - F51.01) Assessment and Plan: Anxiety: - reports persistent and extreme anxiety Plan: - Continue escitalopram 20 mg daily - Continue Rexulti 1 mg daily - Continue Buspirone 10 mg TID - Continue clonazepam as needed for severe anxiety episodes - Educate on risks with long-term use - Monitor for changes in anxiety levels Fatigue - Reports extreme tiredness - Recently switched to taking escitalopram and Rexulti at night, with improved symptoms Plan: - Continue current medications - Encourage taking escitalopram and Rexulti at night if it helps with fatigue - Monitor for improvement Vitamin D deficiency: - Recent lab results show low vitamin D level Plan: - Prescribe weekly vitamin D supplement - Instruct patient to pick a consistent day for supplement intake History of alcohol use disorder: - Reports being sober for four to five years Plan: - Encourage continued sobriety - Recommend participation in support groups or counseling as needed Follow up in two weeks (per his request I need to stay on top of this) to assess for any changes in fatigue and anxiety levels. 12/11/2024 Vitamin D deficiency, unspecified (ICD-10 - E55.9) Anxiety/Panic Disorder - Improved, reports anxiety 20% of where it was rpeviously - Decreased frequently of panic and need for clonazepam Plan: - Increase fluvoxamine to 150 mg daily - Decrease clonazepam 0.5 mg once a day as needed, encouraged mnimized use - Continue rexulti 2 mg daily - Encourage continued therapy with Makayla Depression, secondary to anxiety and interference with life activities - Improved mood overall Plan: - Monitor mood in response to increasing fluvoxamie Insomnia - Trouble falling asleep, possibly related to anxiety Plan: - Consider sleep study to evaluate for underlying sleep disorders - Monitor sleep in response to increasing fluvoxamine - COnsider taking the once a day clonazepam dose at night if anxiety inhibiting sleep onset Low Testosterone - Recently started testosterone replacement therapy Plan: - Monitor response to testosterone therapy - Adjust dosage as needed - Encourage follow-up with primary care provider for regular monitoring VItamin D Deficiency - low on recent labs Plan: - Continue replacement Follow up 4 weeks, sooner if concerns arise 11/13/2024 Vitamin D deficiency, unspecified (ICD-10 - E55.9) Anxiety/Panic Disorder - Severe anxiety affecting daily life, work, and social activities - Panic-like symptoms with physical manifestations (arm pain, lightheadedness, restlessness) Plan: - Discontinue escitalopram - Initiate fluvoxamine for anxiety management, 50 mg x2 weeks, 100 mg therafter - Stop buspirone, ineffective, he stopped prior. - Continue clonazepam 0.5 mg twice a day as needed, encouraged mnimized use - Monitor response to new medication and adjust dosage as needed - Encourage continued therapy with Makayla Depression - Secondary to lack of quality of life due to anxiety - Not the primary issue but contributes to overall mental health concerns Plan: - Address through management of anxiety with fluvoxamine - Monitor mood and depressive symptoms during follow-up visits Insomnia - Trouble staying asleep, possibly related to anxiety Plan: - Consider sleep study to evaluate for underlying sleep disorders - Monitor sleep quality after initiating vilazodone (Viibryd) - Address sleep disturbances during follow-up visits Low Testosterone - Recently started testosterone replacement therapy Plan: - Monitor response to testosterone therapy - Adjust dosage as needed - Encourage follow-up with primary care provider for regular monitoring VItamin D Deficiency - low on recent labs Plan: - Continue replacement Follow up 4 weeks, sooner if concerns arise 01/08/2025 Insomnia, unspecified (ICD-10 - G47.00) Anxiety - Significant improvement, symptoms at about 20% of previous levels Plan: - Continue Rexulti 2 mg daily - Continue fluvoxamine 50 mg in the morning, 150 mg at bedtime - Decrease clonazepam 0.5 mg once a day as needed, encouraged mnimized use - Encourage continued therapy with Makayla Insomnia - Difficulty sleeping 3-4 times per month Plan: - Start mirtazapine 15 mg as needed for sleep - Option to decrease dose to 7.5 mg if necessary Caffeine cessation - Stopped consuming caffeine, reports improvement in sleep quality Plan: - Encourage continued avoidance of caffeine Weight management and exercise - Resumed running and working on losing weight Plan: - Encourage continued healthy diet and exercise habits Testosterone supplementation - Significant improvement in energy and recovery Plan: - Continue current testosterone regimen Vitamin D supplementation Plan: - Continue current vitamin D supplementation Follow-up in 1 month to monitor progress, evaluate effectiveness of mirtazapine for sleep, and address any new concerns 02/04/2025 Vitamin D deficiency, unspecified (ICD-10 - E55.9) 03/19/2025 Major depressive disorder, recurrent, in full remission (ICD-10 - F33.42) 04/23/2024 Insomnia, unspecified (ICD-10 - G47.00) cont trazodone 50mg, take 1-2 tabs qhs prn insomnia practice good sleep hygiene 04/23/2024 Alcohol abuse, in remission (ICD-10 - F10.11) sober since Jul 2021 11/13/2024 Alcohol abuse, in remission (ICD-10 - F10.11) Anxiety/Panic Disorder - Severe anxiety affecting daily life, work, and social activities - Panic-like symptoms with physical manifestations (arm pain, lightheadedness, restlessness) Plan: - Discontinue escitalopram - Initiate fluvoxamine for anxiety management, 50 mg x2 weeks, 100 mg therafter - Stop buspirone, ineffective, he stopped prior. - Continue clonazepam 0.5 mg twice a day as needed, encouraged mnimized use - Monitor response to new medication and adjust dosage as needed - Encourage continued therapy with Makayla Depression - Secondary to lack of quality of life due to anxiety - Not the primary issue but contributes to overall mental health concerns Plan: - Address through management of anxiety with fluvoxamine - Monitor mood and depressive symptoms during follow-up visits Insomnia - Trouble staying asleep, possibly related to anxiety Plan: - Consider sleep study to evaluate for underlying sleep disorders - Monitor sleep quality after initiating vilazodone (Viibryd) - Address sleep disturbances during follow-up visits Low Testosterone - Recently started testosterone replacement therapy Plan: - Monitor response to testosterone therapy - Adjust dosage as needed - Encourage follow-up with primary care provider for regular monitoring VItamin D Deficiency - low on recent labs Plan: - Continue replacement Follow up 4 weeks, sooner if concerns arise 03/19/2025 Low testosterone (ICD-10 - R79.89) 02/04/2025 Low testosterone (ICD-10 - R79.89) 01/08/2025 Vitamin D deficiency, unspecified (ICD-10 - E55.9) Anxiety - Significant improvement, symptoms at about 20% of previous levels Plan: - Continue Rexulti 2 mg daily - Continue fluvoxamine 50 mg in the morning, 150 mg at bedtime - Decrease clonazepam 0.5 mg once a day as needed, encouraged mnimized use - Encourage continued therapy with Makayla Insomnia - Difficulty sleeping 3-4 times per month Plan: - Start mirtazapine 15 mg as needed for sleep - Option to decrease dose to 7.5 mg if necessary Caffeine cessation - Stopped consuming caffeine, reports improvement in sleep quality Plan: - Encourage continued avoidance of caffeine Weight management and exercise - Resumed running and working on losing weight Plan: - Encourage continued healthy diet and exercise habits Testosterone supplementation - Significant improvement in energy and recovery Plan: - Continue current testosterone regimen Vitamin D supplementation Plan: - Continue current vitamin D supplementation Follow-up in 1 month to monitor progress, evaluate effectiveness of mirtazapine for sleep, and address any new concerns 12/11/2024 Low testosterone (ICD-10 - R79.89) Anxiety/Panic Disorder - Improved, reports anxiety 20% of where it was rpeviously - Decreased frequently of panic and need for clonazepam Plan: - Increase fluvoxamine to 150 mg daily - Decrease clonazepam 0.5 mg once a day as needed, encouraged mnimized use - Continue rexulti 2 mg daily - Encourage continued therapy with Makayla Depression, secondary to anxiety and interference with life activities - Improved mood overall Plan: - Monitor mood in response to increasing fluvoxamie Insomnia - Trouble falling asleep, possibly related to anxiety Plan: - Consider sleep study to evaluate for underlying sleep disorders - Monitor sleep in response to increasing fluvoxamine - COnsider taking the once a day clonazepam dose at night if anxiety inhibiting sleep onset Low Testosterone - Recently started testosterone replacement therapy Plan: - Monitor response to testosterone therapy - Adjust dosage as needed - Encourage follow-up with primary care provider for regular monitoring VItamin D Deficiency - low on recent labs Plan: - Continue replacement Follow up 4 weeks, sooner if concerns arise 10/30/2024 Insomnia, unspecified (ICD-10 - G47.00) Assessment and Plan: Anxiety: - reports persistent and extreme anxiety Plan: - Continue escitalopram 20 mg daily - Continue Rexulti 1 mg daily - Continue Buspirone 10 mg TID - Continue clonazepam as needed for severe anxiety episodes - Educate on risks with long-term use - Monitor for changes in anxiety levels Fatigue - Reports extreme tiredness - Recently switched to taking escitalopram and Rexulti at night, with improved symptoms Plan: - Continue current medications - Encourage taking escitalopram and Rexulti at night if it helps with fatigue - Monitor for improvement Vitamin D deficiency: - Recent lab results show low vitamin D level Plan: - Prescribe weekly vitamin D supplement - Instruct patient to pick a consistent day for supplement intake History of alcohol use disorder: - Reports being sober for four to five years Plan: - Encourage continued sobriety - Recommend participation in support groups or counseling as needed Follow up in two weeks (per his request I need to stay on top of this) to assess for any changes in fatigue and anxiety levels. 10/01/2024 Panic disorder (ICD-10 - F41.0) Assessment and Plan: 1. Anxiety - Patient reports significant improvement in anxiety symptoms Plan: - Continue buspirone 10 mg TID and escitalopram (Lexapro) 20 mg daily - Encourage patient to maintain regular follow-up with therapist (Makayla). 2. Depression - Patient denies current depressive symptoms. Plan: - as above 3. Insomnia - Patient reports trazodone is not effective for sleep anymore Plan: - Discontinue trazodone. - Encourage patient to practice good sleep hygiene and consider non-pharmacologic al interventions for sleep. 4. Panic Disorder - cont. Buspar and Lexapro as presribed - cont. propanolol as needed for unmanageable anxiety/ panic episode - reports not using klonopin or clonidine lately, no refills sent Alcohol abuse, in remission - abstained for nearly 5 years. Plan: - Encourage patient to continue abstaining from alcohol Follow-up: Schedule a follow-up appointment in two months (November) to reassess patient's progress and medication management. Patient agrees to extended follow-up due to improved symptoms and upcoming holidays. 07/08/2024 Alcohol abuse, in remission (ICD-10 - F10.11) sober since Jul 2021 08/28/2024 Insomnia, unspecified (ICD-10 - G47.00) sleeping improved has avail, not been taking: trazodone 50mg, take 1-2 tabs qhs prn insomnia practice good sleep hygiene 08/28/2024 Alcohol abuse, in remission (ICD-10 - F10.11) sober since Jul 2021 10/01/2024 Alcohol abuse, in remission (ICD-10 - F10.11) Assessment and Plan: 1. Anxiety - Patient reports significant improvement in anxiety symptoms Plan: - Continue buspirone 10 mg TID and escitalopram (Lexapro) 20 mg daily - Encourage patient to maintain regular follow-up with therapist (Makayla). 2. Depression - Patient denies current depressive symptoms. Plan: - as above 3. Insomnia - Patient reports trazodone is not effective for sleep anymore Plan: - Discontinue trazodone. - Encourage patient to practice good sleep hygiene and consider non-pharmacologic al interventions for sleep. 4. Panic Disorder - cont. Buspar and Lexapro as presribed - cont. propanolol as needed for unmanageable anxiety/ panic episode - reports not using klonopin or clonidine lately, no refills sent Alcohol abuse, in remission - abstained for nearly 5 years. Plan: - Encourage patient to continue abstaining from alcohol Follow-up: Schedule a follow-up appointment in two months (November) to reassess patient's progress and medication management. Patient agrees to extended follow-up due to improved symptoms and upcoming holidays. 01/08/2025 Low testosterone (ICD-10 - R79.89) Anxiety - Significant improvement, symptoms at about 20% of previous levels Plan: - Continue Rexulti 2 mg daily - Continue fluvoxamine 50 mg in the morning, 150 mg at bedtime - Decrease clonazepam 0.5 mg once a day as needed, encouraged mnimized use - Encourage continued therapy with Makayla Insomnia - Difficulty sleeping 3-4 times per month Plan: - Start mirtazapine 15 mg as needed for sleep - Option to decrease dose to 7.5 mg if necessary Caffeine cessation - Stopped consuming caffeine, reports improvement in sleep quality Plan: - Encourage continued avoidance of caffeine Weight management and exercise - Resumed running and working on losing weight Plan: - Encourage continued healthy diet and exercise habits Testosterone supplementation - Significant improvement in energy and recovery Plan: - Continue current testosterone regimen Vitamin D supplementation Plan: - Continue current vitamin D supplementation Follow-up in 1 month to monitor progress, evaluate effectiveness of mirtazapine for sleep, and address any new concerns 10/30/2024 Panic disorder (ICD-10 - F41.0) Assessment and Plan: Anxiety: - reports persistent and extreme anxiety Plan: - Continue escitalopram 20 mg daily - Continue Rexulti 1 mg daily - Continue Buspirone 10 mg TID - Continue clonazepam as needed for severe anxiety episodes - Educate on risks with long-term use - Monitor for changes in anxiety levels Fatigue - Reports extreme tiredness - Recently switched to taking escitalopram and Rexulti at night, with improved symptoms Plan: - Continue current medications - Encourage taking escitalopram and Rexulti at night if it helps with fatigue - Monitor for improvement Vitamin D deficiency: - Recent lab results show low vitamin D level Plan: - Prescribe weekly vitamin D supplement - Instruct patient to pick a consistent day for supplement intake History of alcohol use disorder: - Reports being sober for four to five years Plan: - Encourage continued sobriety - Recommend participation in support groups or counseling as needed Follow up in two weeks (per his request I need to stay on top of this) to assess for any changes in fatigue and anxiety levels. 11/13/2024 Insomnia, unspecified (ICD-10 - G47.00) Anxiety/Panic Disorder - Severe anxiety affecting daily life, work, and social activities - Panic-like symptoms with physical manifestations (arm pain, lightheadedness, restlessness) Plan: - Discontinue escitalopram - Initiate fluvoxamine for anxiety management, 50 mg x2 weeks, 100 mg therafter - Stop buspirone, ineffective, he stopped prior. - Continue clonazepam 0.5 mg twice a day as needed, encouraged mnimized use - Monitor response to new medication and adjust dosage as needed - Encourage continued therapy with Makayla Depression - Secondary to lack of quality of life due to anxiety - Not the primary issue but contributes to overall mental health concerns Plan: - Address through management of anxiety with fluvoxamine - Monitor mood and depressive symptoms during follow-up visits Insomnia - Trouble staying asleep, possibly related to anxiety Plan: - Consider sleep study to evaluate for underlying sleep disorders - Monitor sleep quality after initiating vilazodone (Viibryd) - Address sleep disturbances during follow-up visits Low Testosterone - Recently started testosterone replacement therapy Plan: - Monitor response to testosterone therapy - Adjust dosage as needed - Encourage follow-up with primary care provider for regular monitoring VItamin D Deficiency - low on recent labs Plan: - Continue replacement Follow up 4 weeks, sooner if concerns arise 12/11/2024 Alcohol abuse, in remission (ICD-10 - F10.11) Anxiety/Panic Disorder - Improved, reports anxiety 20% of where it was rpeviously - Decreased frequently of panic and need for clonazepam Plan: - Increase fluvoxamine to 150 mg daily - Decrease clonazepam 0.5 mg once a day as needed, encouraged mnimized use - Continue rexulti 2 mg daily - Encourage continued therapy with Makayla Depression, secondary to anxiety and interference with life activities - Improved mood overall Plan: - Monitor mood in response to increasing fluvoxamie Insomnia - Trouble falling asleep, possibly related to anxiety Plan: - Consider sleep study to evaluate for underlying sleep disorders - Monitor sleep in response to increasing fluvoxamine - COnsider taking the once a day clonazepam dose at night if anxiety inhibiting sleep onset Low Testosterone - Recently started testosterone replacement therapy Plan: - Monitor response to testosterone therapy - Adjust dosage as needed - Encourage follow-up with primary care provider for regular monitoring VItamin D Deficiency - low on recent labs Plan: - Continue replacement Follow up 4 weeks, sooner if concerns arise 02/04/2025 Encounter for screening for cardiovascular disorders (ICD-10 - Z13.6) 03/19/2025 Vitamin D deficiency, unspecified (ICD-10 - E55.9) 03/19/2025 Negative depression screening (ICD-10 - Z13.31) 02/04/2025 Encounter for screening for depression (ICD-10 - Z13.31) 01/08/2025 Alcohol abuse, in remission (ICD-10 - F10.11) Anxiety - Significant improvement, symptoms at about 20% of previous levels Plan: - Continue Rexulti 2 mg daily - Continue fluvoxamine 50 mg in the morning, 150 mg at bedtime - Decrease clonazepam 0.5 mg once a day as needed, encouraged mnimized use - Encourage continued therapy with Makayla Insomnia - Difficulty sleeping 3-4 times per month Plan: - Start mirtazapine 15 mg as needed for sleep - Option to decrease dose to 7.5 mg if necessary Caffeine cessation - Stopped consuming caffeine, reports improvement in sleep quality Plan: - Encourage continued avoidance of caffeine Weight management and exercise - Resumed running and working on losing weight Plan: - Encourage continued healthy diet and exercise habits Testosterone supplementation - Significant improvement in energy and recovery Plan: - Continue current testosterone regimen Vitamin D supplementation Plan: - Continue current vitamin D supplementation Follow-up in 1 month to monitor progress, evaluate effectiveness of mirtazapine for sleep, and address any new concerns 10/30/2024 Other fatigue (ICD-10 - R53.83) Assessment and Plan: Anxiety: - reports persistent and extreme anxiety Plan: - Continue escitalopram 20 mg daily - Continue Rexulti 1 mg daily - Continue Buspirone 10 mg TID - Continue clonazepam as needed for severe anxiety episodes - Educate on risks with long-term use - Monitor for changes in anxiety levels Fatigue - Reports extreme tiredness - Recently switched to taking escitalopram and Rexulti at night, with improved symptoms Plan: - Continue current medications - Encourage taking escitalopram and Rexulti at night if it helps with fatigue - Monitor for improvement Vitamin D deficiency: - Recent lab results show low vitamin D level Plan: - Prescribe weekly vitamin D supplement - Instruct patient to pick a consistent day for supplement intake History of alcohol use disorder: - Reports being sober for four to five years Plan: - Encourage continued sobriety - Recommend participation in support groups or counseling as needed Follow up in two weeks (per his request I need to stay on top of this) to assess for any changes in fatigue and anxiety levels. 10/30/2024 Alcohol abuse, in remission (ICD-10 - F10.11) Assessment and Plan: Anxiety: - reports persistent and extreme anxiety Plan: - Continue escitalopram 20 mg daily - Continue Rexulti 1 mg daily - Continue Buspirone 10 mg TID - Continue clonazepam as needed for severe anxiety episodes - Educate on risks with long-term use - Monitor for changes in anxiety levels Fatigue - Reports extreme tiredness - Recently switched to taking escitalopram and Rexulti at night, with improved symptoms Plan: - Continue current medications - Encourage taking escitalopram and Rexulti at night if it helps with fatigue - Monitor for improvement Vitamin D deficiency: - Recent lab results show low vitamin D level Plan: - Prescribe weekly vitamin D supplement - Instruct patient to pick a consistent day for supplement intake History of alcohol use disorder: - Reports being sober for four to five years Plan: - Encourage continued sobriety - Recommend participation in support groups or counseling as needed Follow up in two weeks (per his request I need to stay on top of this) to assess for any changes in fatigue and anxiety levels. 10/30/2024 Vitamin D deficiency, unspecified (ICD-10 - E55.9) Assessment and Plan: Anxiety: - reports persistent and extreme anxiety Plan: - Continue escitalopram 20 mg daily - Continue Rexulti 1 mg daily - Continue Buspirone 10 mg TID - Continue clonazepam as needed for severe anxiety episodes - Educate on risks with long-term use - Monitor for changes in anxiety levels Fatigue - Reports extreme tiredness - Recently switched to taking escitalopram and Rexulti at night, with improved symptoms Plan: - Continue current medications - Encourage taking escitalopram and Rexulti at night if it helps with fatigue - Monitor for improvement Vitamin D deficiency: - Recent lab results show low vitamin D level Plan: - Prescribe weekly vitamin D supplement - Instruct patient to pick a consistent day for supplement intake History of alcohol use disorder: - Reports being sober for four to five years Plan: - Encourage continued sobriety - Recommend participation in support groups or counseling as needed Follow up in two weeks (per his request I need to stay on top of this) to assess for any changes in fatigue and anxiety levels. 03/19/2025 Encounter for screening for cardiovascular disorders (ICD-10 - Z13.6) 03/19/2025 Encounter for screening for depression (ICD-10 - Z13.31) 05/01/2024 Other Client participated in individual psychotherapy (CBT) related to hx of anxiety and depression. Based on today's session continued psychotherapy is recommended with no changes to treatment. Client verbal and engaged through out session and presented to session fully oriented but a little deschlevd. Reported upon presentation that he has been all right but has been attending IOP three days a week due to increase in anxiety. Session addressed client relationship and beliefs about worry; Noted that started drinking as a way of self medicating anxiety. Believes depression was not present until after he started abusing alcohol. Stated that he struggle forgiving self for past mistakes made while he was abusing alcohol. Client receptive to session feedback and was encourage to examine his belief about worry. Next session in two weeks. 48 year old single never male seen today for initial assessment to start individual therapy. Reported that he has seen Ashlie for medication therapy for the past year and half. However had seen Dr Chan prior to that five years ago. Noted that he has a hx of anxiety and depression. Believes he has suffered from both for the past 5 years. Stated that he started feeling bad just uncomfortable, hard to sit still and unable to do my job. Added that he started abusing alcohol as way of dealing with what he was feeling. Noted that he has been to rehab three times and had been sober for 14 years when he started abusing alcohol 5 years ago. Further shared that he lost a job 3 years ago due to his alcohol abuse and still feels bad about it. Client believes anxiety has been worse through out his life and has made depression what is and has been. When asked that he worries the most about, client stated, the past every stupid thing I did in the past and what people think about me. Depression symptoms include: cant leave my house, thinking negatively, no energy or motivation to do anything, and no pleasure or paty in his life. Family hx is positive for depression and anxiety(mother, sister and a maternal uncle. No psych admissions reported but stated he has been to out patient therapy in the past. Client born and raised in [place], [place] to parents who have been over 50 years. Describe childhood, I have no complaints. Relationship with parents is great but gets along better with father. Client is the youngest of two, older sister who is 50 years old. Relationship with sister is better now especially after she went thru her own mental health issues. described sister as antagonistic. Noted that he has lived with parents for the past four years but has plans of moving back to his home. Stated that sister currently lives in his house. Client added that alcohol abuse is prevalent on father's side of the family. Father is one of 12 with 8 of his siblings have alcohol abuse problems. 05/15/2024 Other Client participated in individual psychotherapy([facility]) related to his hx of anxiety and depression. Based on today's session continued individual psychotherapy ts recommended with no changes to treatment plan. Client presented to session well groomed and fully oriented with no risk of harm to self or others. Verbal and engaged through out session. Reported upon presentation that he has been okay since last seen on 05.01.2024 but has been having a slight increase in anxiety this week. Added that home life with parents is going good and continues to attend IOP three days. Session accordingly addressed client thoughts and beliefs which fuel his worry and anxiety. Client admitted that his biggest worry which causes (his) anxiety is what people might think of him due to his past. Further stated that he has a history of over thinking. Client provided a handout on stratigies to counter over thinking. Client receptive to sesssion feedback and was encouraged to make a list of beliefs that he continues to endorse which are irrational. Next session in two weeks. Referral source Former therapist at [facility]; . Anger management Hx denied by client . Anxiety with agoraphobia(a little bit when anxiety is increased) with excessive worry(about not one specific thing but especially things he did in the past) and will his anxiety will get any better. with low energy with panic attacks with restlessness which has been long-standing(5 or 6 years but past two years has been unmanageable) aggravated by alcohol abuse difficult work, financial and/or relationship issues and relieved by compliance with medication therapy active counseling . Depression with decreased concentration with decreased energy with difficulty sleeping with feelings of guilt with inability to function with isolative behavior with sad mood which has been long-standing aggravated by alcohol abuse difficult work, financial and/or relationship issues and relieved by compliance with medication therapy active counseling . Homicidal ideation Hx denied by client. Mood lability Hx denied by client . Obsessive thoughts which are accompanied by compulsive behaviors or rituals which cause marked distress which interfere with activities of daily living which has been long-standing aggravated by alcohol abuse and relieved by compliance with medication therapy active counseling . Psychosis Hx denied by client . Sleep disturbance with difficulty falling asleep with difficulty staying asleep has been long-standing aggravated by(Unsure why); . Substance abuse alcohol(in the past, sober for 4 years in July) had been drinking daily for for 4 years; aggravated by nonparticipation in in-patient / outpatient therapy and relieved by active participation in in-patient (3 times)/ outpatient therapy . Suicidal ideation Hx denied for any attempts or suicidal thoughts . ADHD Hx denied by client. Psychotherapy Hx positive for out patient and currently attending [facility] 3 days a week; currently seeing Makayla for individual psychotherapy . 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 Current probation / parole none . History of arrests none . History of incarcerations none . Legal history none . 05/28/2024 Other Client participated in individual psychotherapy related to hx of anxiety and depression. Based on today's session continued psychotherapy is recommended with no changes to treatment plan. Client presented to session well groomed and fully oriented with no risk of harm to self and others. He was verbal and engaged through out session. Reported upon presentation that he had bad anxiety yesterday on his day off from work. Noted that he does not recall what could have triggered anxiety. Session accordingly helped client explore thoughts(worries ) and beliefs responsible for anxiety. Admitted that he continues to worry about what others think of him. Admitted that he has not forgiven self for his past mistakes and does not ever stop thinking about it. Client recetive to session feedback. He was provided with a handout on strategies to counter over thinking. Next session in two weeks. 48 year old single never male seen today for initial assessment to start individual therapy. Reported that he has seen Ashlie for medication therapy for the past year and half. However had seen Dr Chan prior to that five years ago. Noted that he has a hx of anxiety and depression. Believes he has suffered from both for the past 5 years. Stated that he started feeling bad just uncomfortable, hard to sit still and unable to do my job. Added that he started abusing alcohol as way of dealing with what he was feeling. Noted that he has been to rehab three times and had been sober for 14 years when he started abusing alcohol 5 years ago. Further shared that he lost a job 3 years ago due to his alcohol abuse and still feels bad about it. Client believes anxiety has been worse through out his life and has made depression what is and has been. When asked that he worries the most about, client stated, the past every stupid thing I did in the past and what people think about me. Depression symptoms include: cant leave my house, thinking negatively, no energy or motivation to do anything, and no pleasure or paty in his life. Family hx is positive for depression and anxiety(mother, sister and a maternal uncle. No psych admissions reported but stated he has been to out patient therapy in the past. Client born and raised in [place], [place] to parents who have been over 50 years. Describe childhood, I have no complaints. Relationship with parents is great but gets along better with father. Client is the youngest of two, older sister who is 50 years old. Relationship with sister is better now especially after she went thru her own mental health issues. described sister as antagonistic. Noted that he has lived with parents for the past four years but has plans of moving back to his home. Stated that sister currently lives in his house. Client added that alcohol abuse is prevalent on father's side of the family. Father is one of 12 with 8 of his siblings have alcohol abuse problems. 06/19/2024 Other Learning About Depression Screening material was printed 1. Generalized Anxiety Disorder (ASHWIN): - Continue BuSpar as prescribed for maintenance. - Discontinue Trintellix and start escitalopram 10 mg, increasing to 20 mg in 30 days. - Monitor for any increase in suicidal ideation and call the provider if needed. - Reassess in 30 days. - Consider clonidine for acute anxiety episodes, checking blood pressure before use. - Continue propranolol as prescribed. 2. Major Depressive Disorder (MDD): - Discontinue Trintellix and start escitalopram 10 mg - Reassess in 30 days. 3. Insomnia: - Continue trazodone 50 mg one to two tabs as needed at bedtime. 4. Panic attacks: - Consider clonidine for acute anxiety episodes, checking blood pressure before use. - Continue propranolol as prescribed. 5. Medication management: - Review gene site testing results to optimize medication choices. - Monitor medication adherence and effectiveness through journaling. 6. Therapy: - Continue therapy with Makayla every two weeks. 7. Lifestyle modifications: - Encourage the patient to practice cognitive and grounding skills learned in IOP. - Monitor sleep, appetite, and overall well-being. Follow-up in 30 days to reassess the patient's response to the new medication regimen and overall mental health status. 06/25/2024 Other Client participated in individual psychotherapy(CB T) related to hx of anxiety. Based on today's session continued psychotherapy is recommended with no changes to treatment plan. Client presented to session well groomed and fully oriented with no risk of harm to self or others. Client verbal and engaged through out session. Reported upon presentation that he has been experiencing anxiety today and yesterday as he has been off work both days. Reiterated that while at work anxiety is not an issue. Admitted as well that he sets self up the night before (when off work following day) by worrying about having anxiety the following day. Client further acknowledged that his worry is specifically about what he feels on his body the next day. Session accordingly helped client establish a connection between worries(thoughts ) and bodily sensations. Admitted that he often times is not aware of other worries beside bodily sensations. Client encouraged to focus on doing something pleasurable and staying in the moment. Noted that he used to enjoy running. Next session in two weeks. 48 year old single never male seen today for initial assessment to start individual therapy. Reported that he has seen Ashlie for medication therapy for the past year and half. However had seen Dr Chan prior to that five years ago. Noted that he has a hx of anxiety and depression. Believes he has suffered from both for the past 5 years. Stated that he started feeling bad just uncomfortable, hard to sit still and unable to do my job. Added that he started abusing alcohol as way of dealing with what he was feeling. Noted that he has been to rehab three times and had been sober for 14 years when he started abusing alcohol 5 years ago. Further shared that he lost a job 3 years ago due to his alcohol abuse and still feels bad about it. Client believes anxiety has been worse through out his life and has made depression what is and has been. When asked that he worries the most about, client stated, the past every stupid thing I did in the past and what people think about me. Depression symptoms include: cant leave my house, thinking negatively, no energy or motivation to do anything, and no pleasure or paty in his life. Family hx is positive for depression and anxiety(mother, sister and a maternal uncle. No psych admissions reported but stated he has been to out patient therapy in the past.Client born and raised in [place], [place] to parents who have been over 50 years. Describe childhood, I have no complaints. Relationship with parents is great but gets along better with father. Client is the youngest of two, older sister who is 50 years old. Relationship with sister is better now especially after she went thru her own mental health issues. described sister as antagonistic. Noted that he has lived with parents for the past four years but has plans of moving back to his home. Stated that sister currently lives in his house. Client added that alcohol abuse is prevalent on father's side of the family. Father is one of 12 with 8 of his siblings have alcohol abuse problems. 07/31/2024 Other Client participated in individual psychotherapy(CB T/Supportive) related to his history of anxiety and depression. Based on today's session continued psychotherapy is recommended with no changes to treatment plan. Client presented to session well groomed and fully oriented with no risk of harm to self or others. Client verbal and engaged through out session with appropriate mood and affect. Reported upon presentation that he has been not bad and doing better, much better, since last seen on 06.25.2024. Noted that while anxiety has been less he has been struggling motivating self to do anything, all I want to do is lay around. Session accordingly helped client examine and challenge cognitions surrounding his lack of motivation to do anything. Admitted that a part of him is afraid to leave his home, where he is safe, except for work, due to fear of having anxiety attacks. Admitted having a high need for certainty and immediate gratification. Client receptive to session feedback. Next session in two weeks. 48 year old single never male seen today for initial assessment to start individual therapy. Reported that he has seen Ashlie for medication therapy for the past year and half. However had seen Dr Chan prior to that five years ago. Noted that he has a hx of anxiety and depression. Believes he has suffered from both for the past 5 years. Stated that he started feeling bad just uncomfortable, hard to sit still and unable to do my job. Added that he started abusing alcohol as way of dealing with what he was feeling. Noted that he has been to rehab three times and had been sober for 14 years when he started abusing alcohol 5 years ago. Further shared that he lost a job 3 years ago due to his alcohol abuse and still feels bad about it. Client believes anxiety has been worse through out his life and has made depression what is and has been. When asked that he worries the most about, client stated, the past every stupid thing I did in the past and what people think about me. Depression symptoms include: cant leave my house, thinking negatively, no energy or motivation to do anything, and no pleasure or paty in his life. Family hx is positive for depression and anxiety(mother, sister and a maternal uncle. No psych admissions reported but stated he has been to out patient therapy in the past.Client born and raised in [place], [place] to parents who have been over 50 years. Describe childhood, I have no complaints. Relationship with parents is great but gets along better with father. Client is the youngest of two, older sister who is 50 years old. Relationship with sister is better now especially after she went thru her own mental health issues. described sister as antagonistic. Noted that he has lived with parents for the past four years but has plans of moving back to his home. Stated that sister currently lives in his house. Client added that alcohol abuse is prevalent on father's side of the family. Father is one of 12 with 8 of his siblings have alcohol abuse problems. 09/03/2024 Other Client participated in individual psychotherapy(CB T/Supportive) related to his hx of anxiety and depression. Based on today's session continued psychotherapy is recommended with no changes to treatment plan. Client presented to session well groomed and fully oriented with no risk of harm to self or others. Client verbal and engaged through out session. Reported upon presentation that his anxiety was bad last week and has felt depressed this week. Noted that all he wants to do when not working is lay around and do nothing. Added however that he does not have a problem going to work and actually looks forward to going to work. Session accordingly challenged client's beliefs which continue to keep him from enjoying life and having fun when not at work. Conceded that he has a lot of guilt associated with how his had been living his life when abusing alcohol. Commented that he loves life but reminded that he is not living his life. Further conceded that he might not be deserving of having fun and enjoying his life. Client receptive to session feedback. Next session in four weeks. 48 year old single never male seen today for initial assessment to start individual therapy. Reported that he has seen Ashlie for medication therapy for the past year and half. However had seen Dr Chan prior to that five years ago. Noted that he has a hx of anxiety and depression. Believes he has suffered from both for the past 5 years. Stated that he started feeling bad just uncomfortable, hard to sit still and unable to do my job. Added that he started abusing alcohol as way of dealing with what he was feeling. Noted that he has been to rehab three times and had been sober for 14 years when he started abusing alcohol 5 years ago. Further shared that he lost a job 3 years ago due to his alcohol abuse and still feels bad about it. Client believes anxiety has been worse through out his life and has made depression what is and has been. When asked that he worries the most about, client stated, the past every stupid thing I did in the past and what people think about me. Depression symptoms include: cant leave my house, thinking negatively, no energy or motivation to do anything, and no pleasure or paty in his life. Family hx is positive for depression and anxiety(mother, sister and a maternal uncle. No psych admissions reported but stated he has been to out patient therapy in the past.Client born and raised in [place], [place] to parents who have been over 50 years. Describe childhood, I have no complaints. Relationship with parents is great but gets along better with father. Client is the youngest of two, older sister who is 50 years old. Relationship with sister is better now especially after she went thru her own mental health issues. described sister as antagonistic. Noted that he has lived with parents for the past four years but has plans of moving back to his home. Stated that sister currently lives in his house. Client added that alcohol abuse is prevalent on father's side of the family. Father is one of 12 with 8 of his siblings have alcohol abuse problems. 10/02/2024 Other Client participated in individual psychotherapy CBT/Supportive) related to his hx of anxiety and depression. Based on today's session continued psychotherapy is recommended with no changes to treatment plan. Client presented to session well groomed and fully oriented with no risk of harm to self or others. Client verbal and engaged through out session with appropriate mood and affect. Reported upon presentation that he has been good since last seen on 09.03.2024. Added that he has had the best three weeks in a very long time, at least the past three years. Has had no anxiety or depression symptoms and has been leaving his house and having fun. Moreover, has not dreaded waking up when not going to work. Konrad shared that his parents have noticed the change in him especially because he has not been hiding out in his room. Client provided supportive therapy and encouraged to keep doing what has been working. Next session in three weeks. 48 year old single never male seen today for initial assessment to start individual therapy. Reported that he has seen Ashlie for medication therapy for the past year and half. However had seen Dr Chan prior to that five years ago. Noted that he has a hx of anxiety and depression. Believes he has suffered from both for the past 5 years. Stated that he started feeling bad just uncomfortable, hard to sit still and unable to do my job. Added that he started abusing alcohol as way of dealing with what he was feeling. Noted that he has been to rehab three times and had been sober for 14 years when he started abusing alcohol 5 years ago. Further shared that he lost a job 3 years ago due to his alcohol abuse and still feels bad about it. Client believes anxiety has been worse through out his life and has made depression what is and has been. When asked that he worries the most about, client stated, the past every stupid thing I did in the past and what people think about me. Depression symptoms include: cant leave my house, thinking negatively, no energy or motivation to do anything, and no pleasure or paty in his life. Family hx is positive for depression and anxiety(mother, sister and a maternal uncle. No psych admissions reported but stated he has been to out patient therapy in the past.Client born and raised in [place], [place] to parents who have been over 50 years. Describe childhood, I have no complaints. Relationship with parents is great but gets along better with father. Client is the youngest of two, older sister who is 50 years old. Relationship with sister is better now especially after she went thru her own mental health issues. described sister as antagonistic. Noted that he has lived with parents for the past four years but has plans of moving back to his home. Stated that sister currently lives in his house. Client added that alcohol abuse is prevalent on father's side of the family. Father is one of 12 with 8 of his siblings have alcohol abuse problems. 10/28/2024 Other Assessment and plan reviewed with patient Call for problems with medication, side effects or need for dosage change Compliance issues reviewed Discussed the risks/benefit s of this medication Discussed medication side effects Return if symptoms worsen Treatment options reviewed. discussed that it can take weeks to see full therapeutic effects of psychotropic medications. discussed when to seek emergency services. discussed crisis prevention hotline 988. 1. Excessive Daytime Sleepiness - Patient reports excessive sleepiness for past two weeks, affecting work and daily functioning. - Describes feeling like a zombie and unable to drive. - Plan: a. Decrease Rexulti from 2mg to 1mg daily. b. Instruct patient to use pill cutter for 2mg tablets. c. Monitor for improvement in sleepiness. d. Obtain blood work: CBC, CMP, TSH, vitamin levels, thyroid, hemoglobin, and liver function tests. e. educated that omeprazole and clonazepam should not be taken together r/t omeprazole increasing clonazepam's side effects, including fatigue (patient's last use was yesterday). 2. Anxiety - Patient reports increased anxiety, rating it 8/10. - Clonazepam not providing adequate relief. - Plan: a. Gradually taper off Rexulti reduced to 1 mg today. b. Consider adding quetiapine extended-release at next appointment. c. Encourage continued breathing exercises, cognitive therapy, and behavioral therapy. d. encouraged to make more frequent appointments with [facility]. e. discussed IOP programs and possible inpatient hospitalization. 3. hypersomnia/insom charlie - Patient reports difficulty falling asleep and staying asleep despite extreme tiredness. - Plan: a. Address daytime sleepiness and anxiety as potential contributors. b. pt works long shifts, but has not had a change in work schedule. c. only recent change was an increase in buspar, which he reduced back to original dosing. 4. Medication Management - Current medications: escitalopram 20mg, BuSpar 10mg TID, vitamin D, iron, and omeprazole. - Plan: a. Continue current medications, except for Rexulti decrease. b. Monitor for potential drug interactions, especially between omeprazole and clonazepam. c. continue buspar at 10mg TID. 5. Follow-Up - Schedule follow-up sooner than current appointment on the with primary psychiatric provider. - Review lab results and assess medication changes effectiveness. - Advise considering inpatient care at [facility] if symptoms become unmanageable. Additional Notes: - Patient completed IOP at end of July. - Works 12-hour shifts (6 AM to 6 PM) on varying schedules. - Denies use of marijuana, alcohol, or other drugs. - Previous trials of hydroxyzine and propranolol ineffective for anxiety management. 10/30/2024 Other Client participated in individual psychotherapy(CB T/Supportive) related to his hx of anxiety and depression. Based on today's session continued psychotherapy is recommended with no changes to treatment plan. Client presented to session well groomed and fully oriented with no risk of harm to self or others. Client verbal and engaged through out session but some prompting required. Reported upon presentation that he has been really tired and sleepy for the past few weeks. Stated that he had blood work done yesterday. As a result of feeling tired and sleepy anxiety has returned but not as bad as it had been. Noted that nothing around him has changed but he has been having problems leaving his room when not going to work which is going good. Session accordingly helped client examine thoughts and beliefs surrounding anxiety. Client admitted that he has been dwelling on what could be wrong. Moreover conceded that he does not do well with not knowing and tends to go to the worse case scenario. Client receptive to session feedback and was encouraged to start journaling. Next session in four weeks. 48 year old single never male seen today for initial assessment to start individual therapy. Reported that he has seen Ashlie for medication therapy for the past year and half. However had seen Dr Chan prior to that five years ago. Noted that he has a hx of anxiety and depression. Believes he has suffered from both for the past 5 years. Stated that he started feeling bad just uncomfortable, hard to sit still and unable to do my job. Added that he started abusing alcohol as way of dealing with what he was feeling. Noted that he has been to rehab three times and had been sober for 14 years when he started abusing alcohol 5 years ago. Further shared that he lost a job 3 years ago due to his alcohol abuse and still feels bad about it. Client believes anxiety has been worse through out his life and has made depression what is and has been. When asked that he worries the most about, client stated, the past every stupid thing I did in the past and what people think about me. Depression symptoms include: cant leave my house, thinking negatively, no energy or motivation to do anything, and no pleasure or paty in his life. Family hx is positive for depression and anxiety(mother, sister and a maternal uncle. No psych admissions reported but stated he has been to out patient therapy in the past.Client born and raised in [place], [place] to parents who have been over 50 years. Describe childhood, I have no complaints. Relationship with parents is great but gets along better with father. Client is the youngest of two, older sister who is 50 years old. Relationship with sister is better now especially after she went thru her own mental health issues. described sister as antagonistic. Noted that he has lived with parents for the past four years but has plans of moving back to his home. Stated that sister currently lives in his house. Client added that alcohol abuse is prevalent on father's side of the family. Father is one of 12 with 8 of his siblings have alcohol abuse problems. 11/27/2024 Other Client particpated in individual psychotherapy(CB T/Supportive) related to his hx of anxiety and depression. Based on today's session continued psychotherapy is recommended with change in frequency of sessions due to progress made. Client presented to session well groomed and fully oriented with no risk of harm to self or others. Client verbal and engaged through out session. Reported upon presentation that he is optimistic due to having been doing really good since last seen on 10.30.2024. Stated that he has not had any anxiety and has dreaded waking up and getting out of bed. Further shared that he has been trying to get healthy as well. Sleep has been much improved. Added that this Britt was the best he has had in 10 years. He did however express some concern over having texted the father of his God daughter and not having a response from him. Conceded that he cannot allow this to de-rail progress he has made. Client encouraged to keep doing what has allowed progress. Client receptive to session feedback. Next session in four weeks. 48 year old single never male seen today for initial assessment to start individual therapy. Reported that he has seen Ashlie for medication therapy for the past year and half. However had seen Dr Chan prior to that five years ago. Noted that he has a hx of anxiety and depression. Believes he has suffered from both for the past 5 years. Stated that he started feeling bad just uncomfortable, hard to sit still and unable to do my job. Added that he started abusing alcohol as way of dealing with what he was feeling. Noted that he has been to rehab three times and had been sober for 14 years when he started abusing alcohol 5 years ago. Further shared that he lost a job 3 years ago due to his alcohol abuse and still feels bad about it. Client believes anxiety has been worse through out his life and has made depression what is and has been. When asked that he worries the most about, client stated, the past every stupid thing I did in the past and what people think about me. Depression symptoms include: cant leave my house, thinking negatively, no energy or motivation to do anything, and no pleasure or paty in his life. Family hx is positive for depression and anxiety(mother, sister and a maternal uncle. No psych admissions reported but stated he has been to out patient therapy in the past.Client born and raised in [place] to parents who have been over 50 years. Describe childhood, I have no complaints. Relationship with parents is great but gets along better with father. Client is the youngest of two, older sister who is 50 years old. Relationship with sister is better now especially after she went thru her own mental health issues. described sister as antagonistic. Noted that he has lived with parents for the past four years but has plans of moving back to his home. Stated that sister currently lives in his house. Client added that alcohol abuse is prevalent on father's side of the family. Father is one of 12 with 8 of his siblings have alcohol abuse problems. 02/04/2025 Other Jeffrey Sexton, a male patient with a history of anxiety, presents for follow-up reporting ongoing sleep difficulties and fatigue despite improvement in other areas of his life. Insomnia Assessment: Patient reports chronic sleep difficulties, including difficulty falling asleep and staying asleep. He typically gets only 3-4 hours of sleep per night, with frequent awakenings. The patient experiences vivid dreams during brief periods of sleep. Sleep hygiene practices appear to be good, with no caffeine after noon, no TV in the bedroom, and attempts to limit engaging content before bed. Despite these measures, insomnia persists and is causing significant daytime fatigue. Plan: - Refer for comprehensive sleep study to evaluate for underlying sleep disorders - Educate patient on importance of addressing sleep issues for overall health - Follow up after sleep study results are available to discuss findings and potential interventions Anxiety Disorder Assessment: Patient reports a history of anxiety, which has been well-controlled for the past 4 years on current medication regimen. He occasionally experiences mild anxiety symptoms but overall describes significant improvement. The patient mentions family history of anxiety disorders with variable response times to treatment. Plan: - Continue fluvoxamine at current dosage (specific dose not mentioned) - Monitor for any increase in anxiety symptoms, especially in context of recent flu-like illness - Encourage ongoing use of coping strategies for managing occasional anxiety symptoms Obesity Assessment: Patient reports being approximately 30 pounds overweight despite previous high level of physical activity (running 5 miles daily). He describes his current diet as impeccable and has recently started semaglutide for weight loss. Exercise regimen has been modified to walking due to weight gain. Plan: - Continue semaglutide for weight management (dose not specified) - Encourage gradual increase in exercise as tolerated - Monitor for side effects of semaglutide, particularly fatigue - Follow up on weight loss progress at next visit Medication Management Assessment: Patient reports appropriate use of prescribed medications, including fluvoxamine for anxiety and recently initiated semaglutide for weight loss. He has disposed of unnecessary medications, including mirtazapine (which was not tried) and excess clonazepam. The patient maintains a small supply of clonazepam for potential anxiety exacerbations but rarely uses it. Plan: - Continue current medication regimen - Educate on proper medication disposal methods for future reference - Reinforce importance of maintaining small supply of as-needed medications like clonazepam for emergencies - Follow up in one month to reassess medication efficacy and side effects 03/19/2025 Jeimy Sexton presents with worsening anxiety, particularly in the morning and evening, and sleep disturbances following discontinuation of Rexulti due to adverse effects. Generalized Anxiety Disorder Assessment: Patient reports increased anxiety, particularly severe in the morning and evening. Symptoms include lightheadedness and arm pain. Anxiety appears to have worsened after discontinuing Rexulti due to side effects of twitching and shaking. Patient is currently taking clonazepam in the morning and evening to manage anxiety symptoms. Current fluvoxamine regimen (half tablet in morning, 1.5 tablets at bedtime) has been helpful but may require adjustment. Plan: - Consider increasing fluvoxamine to 100 mg PO in the morning and 200 mg PO at bedtime - Alternative option: Initiate clonidine 0.1 mg PO at bedtime - Patient to monitor blood pressure after taking clonidine - Advised to discontinue if experiencing lightheadedness or dizziness - Follow up in one month Insomnia Assessment: Patient reports waking every 2 hours and occasionally needing to walk around due to anxiety. Sleep disturbances may be related to anxiety or possible sleep apnea. A sleep study has been scheduled to further evaluate sleep issues. Plan: - Await results of scheduled sleep study - Consider increasing nighttime dose of fluvoxamine to support sleep Medication Side Effects Assessment: Patient discontinued Rexulti due to severe side effects including twitching and shaking. Attempts to reduce the dose to half were unsuccessful in alleviating side effects. Patient also reports a negative experience with semaglutide, which has been discontinued. Plan: - Discontinue Rexulti - Discontinue semaglutide - Monitor for any new side effects with medication changes Plan Of Treatment Pending Test Test Name Order Date Liver Function Test (LFT) 10/28/2024 CBC (H/H, RBC, INDICES, WBC, PLT) (1759) 10/28/2024 UDT 06/19/2024 UDT 10/01/2024 Next Appt Details Provider Name:Smiley Jhoana mayo, 04/23/2025 02:15:00 PM, [address] [facility] [address], [facility] [address], [place], [address], Insurance Providers Payer Name Payer Address Payer Phone Subscriber Number Group Number Insured Name Patient Relationship to Insured Coverage Start Date Coverage End Date [employer] [address] [place] [address] [id number] JEFFREY SEXTON Self - patient is the insured Medical (General) History Medical History History ICD Code Past Psychiatric History: An xiety Disorder, Panic Disorder, Insomnia, depression History of alcohol abuse vitamin D deficiency Smoker Alcohol abuse, 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
--- OUTSIDE RECORDS SUMMARY | 2025-04-19 11:17 | XMS_ITS | Clinical Summary ---
Author Organization [facility] [employer] [place] Address [address] [address] Care Team Providers Care Smooth Stucco Resurfacer Name Role Phone Unavailable Primary Care Provider Unavailabl e Allergies Active Allergy Reactions Criticality Noted Date Comments Codeine Nausea and Vomiting Low 10/31/2023 Escitalopram Anxiety Low 10/31/2023 Medications propranoloL (INDERAL LA) 60 mg Long Acting 24 hour capsule Take 10 mg by mouth daily. 0 Active omeprazole (PriLOSEC) 10 mg Capsule, Delayed Release(E.C.) Take 10 mg by mouth daily. Active cariprazine (Vraylar) 3 mg Capsule capsule Take 3 mg by mouth daily. Active risankizumab-rz aa (Skyrizi) 150 mg/mL Pen Injector Inject 150 mg by subcutaneous injection every 90 days. Active Active Problems No known active problems Family History Medical History Relation Name Comments No Known Problems Father Ovarian Cancer Mother No Known Problems Sister Relation Name Status Comments Father Alive Mother Alive Sister Alive Social History Tobacco Use Types Packs/Day Years Used Date Smoking Tobacco: Every Day Cigarettes Smokeless Tobacco: Never Tobacco Cessation:Ready to Q uit: Not Asked; Counseling Given: Not Answered Alcohol Use Standard Drinks/Week Comments Not Currently 0 (1 standard drink = 0.6 oz pur e alcohol) Sex and Gender Information Value Date Recorded Sex Assigned at Not on file Legal Sex Male 10:40 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 Gender Identity Not on file Sexual Orientation Not on file Last Filed Vital Signs Vital Sign Reading Time Taken Comments Blood Pressure 114/73 11/07/2023 10:17 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 Pulse 70 11/07/2023 10:17 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 Temperature 36.3 C (97.4 F) 11/07/2023 10:17 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 Respiratory Rate 16 11/07/2023 10:1 7 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 Oxygen Saturation 97% 11/07/2023 10: 17 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 Inhaled Oxygen Concentration - - Weight 75.7 kg (166 lb 12.8 oz) 023 10:17 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 Height 172.7 cm (5' 8) 10/31/2023 10:4 5 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 Body Mass Index 25.36 10/31/2023 10:45 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 Plan of Treatment Health Maintenance Due Date Last Done Comments DTAP/TDAP/TD VACCINES (1 - Tdap) 1995 HEPATITIS B VACCINES (1 of 3 - 19+ 3-dose series) 08/18 COLORECTAL SCREENING 2021 Colorectal Cancer Screening 2021 FIT-DNA Q 3 years 2021 FIT/FOBT Q 1 year 2021 Flex Sig/CT Colonography Q 5 years 2021 INFLUENZA VACCINE (#1) 2024 Insurance AETNA CHOICE POS II
--- OUTSIDE RECORDS SUMMARY | 2025-04-19 11:17 | XMS_ITS | Clinical Summary ---
Author Organization [facility] Address [address] [place] [address] Phone Care Team Providers Care Ballast Cleaning Machine Operator Name Role Phone Unavailable Primary Care Provider Unavailabl e Allergies No known active allergies Medications omeprazole (PriLOSEC) [address] capsule Take 40 mg by mouth 1 (one) time each day Active Risankizumab-rz aa (Skyrizi) 150 MG/ML solution prefilled syringe Inject 150 mg under the skin 1 (one) time each day Active Cariprazine HCl (Vraylar) 3 MG capsule Take by mouth Active propranolol (INDERAL) 10 MG tablet Take 10 mg by mouth in the morning and 10 mg in the evening. Active Active Problems Problem Noted Date Diagnosed Date Acute injury of kidney 11/26/2023 Hypokalemia 10/29/2023 Anemia 10/29/2023 Proteinuria 10/29/2023 Serum creatinine above reference range 3 Renal insufficiency 10/29/2023 Hypochloremia 10/29/2023 Family History Medical History Relation Comments Hypertension Other Relation Status Comments Other Family member no t specified Social History Tobacco Use Types Packs/Day Years Used Date Smoking Tobacco: Every Day Cigarettes 0.5 25 Smokeless Tobacco: Never Alcohol Use Standard Drinks/Week Comments Not Currently 0 (1 standard drink = 0.6 oz pure alcohol) 2 years sober with history of alcohol abuse Sex and Gender Information Value Date Recorded Sex Assigned at Not on file Legal Sex Male 2:20 PM MDT Gender Identity Not on file Sexual Orientation Not on file Last Filed Vital Signs Vital Sign Reading Time Taken Comments Blood Pressure 123/86 11/28/2023 12:44 PM FIELD ATTENDANT Pulse 77 11/28/2023 12:44 PM FIELD ATTENDANT Temperature - - Respiratory Rate - - Oxygen Saturation - - Inhaled Oxygen Concentration - - Weight 76.7 kg (169 lb) 11/28/2023 12:44 PM FIELD ATTENDANT Height 170.2 cm (5' 7) 11/28/2023 12:44 PM FIELD ATTENDANT Body Mass Index 26.47 11/28/2023 12:44 PM FIELD ATTENDANT Plan of Treatment Upcoming Encounters Date Type Department Care Team ([facility] st Contact Info) Description 07/01/2025 4:40 PM CDT Office Visit [facility] [address] [facility] [address] [place] [address] Jeremy Abebe MD [address] [facility] [address] [place] [address] Health Maintenance Due Date Last Done Comments Pneumococcal PPSV23 Highest Risk Adult (1 of 3 - PCV13 ) 1995 Influenza Vaccine (Season Ended) 2025 Insurance PM INTERFACED INSURANCE
[2025-04-19 11:30] LABS: Add Urine Microscopic? NO; Appearance Urine Clear (Clear); Bilirubin Urine Negative (Negative); Blood Urine Negative (Negative); Color Urine Yellow (Yellow); Glucose Urine UA Negative (Negative); Ketones Urine Negative (Negative); Leukocyte Esterase Ur Negative LEU/UL (Negative); Nitrate Urine Negative (Negative); Protein Urine Negative (Negative); Specific Grav Ur 1.008 (1.001-1.035); Urobilinogen Urine 0.2 mg/dL (<2.0); pH Urine 7.5 (5.0-9.0)
[2025-04-19 11:31] VITALS: BP 112/72; PULSE 60; RESP 18; TEMP 36.6; O2SAT 97
[2025-04-19 12:13] LABS: Creatine Kinase 176 U/L (55-170)
--- NOTE | 2025-04-19 13:33 | ECG_ITS ---
Test Date: 2025-04-19 13:33:55 Measurements Intervals [place] Rate: 56 P: 29 UT: 133 QRS: -9 QRSD: 84 T: 28 QT: 401 QTc: 389 Interpretive Statements SINUS BRADYCARDIA POSSIBLE LEFT ATRIAL ENLARGEMENT POSSIBLE RIGHT VENTRICULAR CONDUCTION DELAY CONSIDER INFERIOR INFARCT, AGE INDETERMINATE BASELINE ARTIFACT- I, II, III, AVR, AVL, AVF, V1-V3 ABNORMAL ECG Compared to ECG 04/19/2025 10:16:23 HEART RATE HAS DECREASED Electronically Signed On 04-19-2025 20:41:56 CDT by Jostin Beasley D.O.
[2025-04-19] MEDS: SODIUM CHLORIDE 0.9% IV 1,000 ML 999 ML IV CONT (13:50)
[2025-04-19 13:57] LABS: Troponin I < 0.012 ng/mL (0.000-0.034)
[2025-04-19 14:51] VITALS: BP 118/80; PULSE 60; RESP 21; TEMP 36.9; O2SAT 99
[2025-04-19 15:06] VITALS: BP 116/72; PULSE 62; RESP 18; TEMP 36.6; O2SAT 98
== END 2025-04-19 15:07 | disposition home or self-care (01) ==
PROVIDERS: Family Medicine; Emergency Provider Physician Assistant; PCP Emergency Medicine
DX: E86.0 Dehydration (principal); R07.89 Other chest pain; E87.6 Hypokalemia; F17.210 Nicotine dependence, cigarettes, uncomplicated; F41.9 Anxiety disorder, unspecified; K21.9 Gastro-esophageal reflux disease without esophagitis
CPT/HCPCS: 36415; 71046; 80053; 81003; 82550; 83690; 83735; 84484; 85025; 85610; 85730; 93005; 96360; 99284; A9270; J7030

== ENCOUNTER 2025-07-02 16:38 | Emergency (ER) | payer OTHER, SELFPAY ==
[2025-07-02] VITALS (15 sets, daily range): BP systolic 111–129; BP diastolic 78–90; PULSE 61–72; RESP 18; TEMP 36.6; O2SAT 97–100
--- NOTE | ~2025-07-02 | US_ITS ---
EXAM: ABDOMEN ULTRASOUND HISTORY: transaminitis COMPARISON: Reference is made to a CT examination of the abdomen and pelvis dated 03/09/2023 FINDINGS: LIVER: The liver is unremarkable in echogenicity and size. GALLBLADDER: No stones are identified within the gallbladder, which is otherwise unremarkable. No significant gallbladder wall thickening or pericholecystic fluid. BILE DUCTS: Common bile duct measures 4mm. PANCREAS: Limited evaluation of the pancreas secondary to overlying bowel gas RIGHT KIDNEY: 10.4 cm in length. No hydronephrosis or bulky renal calculi. Lobulated contour and a lobulated appearance, likely representing lobulations in a patient with normal renal function. IMPRESSION: Limited evaluation of the pancreas secondary to overlying bowel gas No stones within the gallbladder. Liver is unremarkable. Reviewed, dictated and finalized at location A.
--- OUTSIDE RECORDS SUMMARY | 2025-07-02 16:42 | XMS_ITS ---
Author Organization [facility] [employer] [facility] Address [facility] [address] [address] Care Team Providers Care Material Handler 1St Shift Name Role Phone Keron MONTES, Kushal Primary Care Provider Smiley Ingram Unavailable [phone] Libia Samayoa Unavailable [phone] REASON FOR VISIT Therapy Visit Social History Sex Assigned At : Social History Observation Description Sex Assigned At Male Encounters Encounter Location Date Provider Diagnosis [facility], [address] [facility] [address] [address] 06/10/2025 Libia Samayoa Plan Of Treatment Next Appt Details Provider Name:Dereck altman, 07/06/2025 03:00:00 PM, [address] [facility] [address] [facility], [address], [address], Provider Name:Smiley mayo, 07/06/2025 04:30:00 PM, [address] [place] [address] R[address] [facility], [address], [address], Progress Notes * JEFFREY PERESDOB:1975 ( 49 yo M)Acc No.[id number]:06/10/2025 Patient: JEFFREY BANEGAS Provider: Nika Samayoa :1975 A ge:49 Y S ex:Male Date:06/10/2025 Address:[address], [facility] Pcp:Kushal Cabrales MD Data: * Chief Complaints: * 1 . Therapy Visit. Assessment: Plan: * Treatment: * Billing Information: * Visit Code: * Procedure Codes: * Electronic signature of Herminio Samayoa LCPC on 07/02/2025 at 04:42 PM CDT Sign off status: Pending Signatures: No Ad Hoc Signature Added * Provider: Nika Samayoa Date: 0 06/10/2025 Generated for Everett Allen on: 07/02/2025 04:42 PM CDT
--- OUTSIDE RECORDS SUMMARY | 2025-07-02 16:42 | XMS_ITS | Clinical Summary ---
Author Organization [facility] [employer] [place] Address [address] [address] Care Team Providers Care Logistics Support Name Role Phone Unavailable Primary Care Provider [...] on file Legal Sex Male 10:40 AM CLINICAL SPECIALIST VASCULAR Gender Identity Not on file Sexual Orientation Not on file Last Filed Vital Signs Vital Sign Reading Time Taken Comments Blood Pressure 114/73 11/07/2023 10:17 AM CLINICAL SPECIALIST VASCULAR Pulse 70 11/07/2023 10:17 AM CLINICAL SPECIALIST VASCULAR Temperature 36.3 C (97.4 F) 11/07/2023 10:17 AM CLINICAL SPECIALIST VASCULAR Respiratory Rate 16 11/07/2023 10:1 7 AM CLINICAL SPECIALIST VASCULAR Oxygen Saturation 97% 11/07/2023 10: 17 AM CLINICAL SPECIALIST VASCULAR Inhaled Oxygen Concentration - - Weight 75.7 kg (166 lb 12.8 oz) 023 10:17 AM CLINICAL SPECIALIST VASCULAR Height 172.7 cm (5' 8) 10/31/2023 10:4 5 AM CLINICAL SPECIALIST VASCULAR Body Mass Index 25.36 10/31/2023 10:45 AM CLINICAL SPECIALIST VASCULAR Plan of Treatment Health Maintenance Due Date Last Done Comments DTAP/TDAP/TD VACCINES (1 - Tdap) 1995 HEPATITIS B VACCINES (1 of 3 - 19+ 3-dose series) 08/18 COLORECTAL SCREENING 2021 Colorectal Cancer Screening 2021 FIT-DNA Q 3 years 2021 FIT/FOBT Q 1 year 2021 Flex Sig/CT Colonography Q 5 years 2021 INFLUENZA VACCINE (#1) 2025 Insurance AETNA CHOICE POS II
--- OUTSIDE RECORDS SUMMARY | 2025-07-02 16:42 | XMS_ITS | Clinical Summary ---
Author Organization [facility] Address [address] [place] [address] Phone Care Team Providers Care Corner Former Name Role Phone Unavailable Primary Care Provider [...] Active Problems Problem Noted Date Diagnosed Date Essential hypertension 06/22/2025 Anxiety 06/22/2025 H/O: depression 06/22/2025 Vitamin D deficiency 06/22/2025 Acute injury of kidney 11/26/2023 Resolved Problems Problem Noted Date Diagnosed Date Resolved Date Hypokalemia 10/29/2023 06/22/2025 Anemia 10/29/2023 06/22/2025 Proteinuria 10/29/2023 06/22/2025 Serum creatinine above reference range 10/29/2023 06/22/2025 Renal insufficiency 10/29/2023 06/22/20 25 Hypochloremia 10/29/2023 06/22/2025 Family History Medical History Relation Comments Hypertension [...] Comments Blood Pressure 123/86 11/28/2023 12:44 PM BOLT MAKER Pulse 77 11/28/2023 12:44 PM BOLT MAKER Temperature - - Respiratory Rate - - Oxygen Saturation - - Inhaled Oxygen Concentration - - Weight 76.7 kg (169 lb) 11/28/2023 12:44 PM BOLT MAKER Height 170.2 cm (5' 7) 11/28/2023 12:44 PM BOLT MAKER Body Mass Index 26.47 11/28/2023 12:44 PM BOLT MAKER Plan of Treatment Upcoming Encounters Date Type Department Care Team ([facility] st Contact Info) Description 2025 2:40 PM CDT Office Visit [facility] [address] [facility] [address] [place] [address] Jeremy Abebe MD [address] [facility] 1 [place] [address] Health Maintenance Due Date Last Done Comments Pneumococcal PPSV23 Highest Risk Adult (1 of 3 - PCV13 ) 1995 Influenza Vaccine (#1) 2025 Insurance PM INTERFACED INSURANCE
--- OUTSIDE RECORDS SUMMARY | 2025-07-02 16:42 | XMS_ITS | Continuity of Care Document ---
Author Organization [facility] Address [address] [place] [address] Phone Care Team Providers Care Hvac Technician Name Role Phone Sharri Gutierrez MD Unavailable Unavailable Allergies, Adverse Reactions, Alerts Substance Reaction Status Criticality erythromycin base Other Active No Informa tion Advance Directives Directive Yes / No Effective Date File Name No Information Encounters Encounter Description Practice Location Reason(s) For Visit Diagnoses Date Provider Providers Copied on Encounter [facility], [address], [place], [place], [address], tel:[phone] [facility] No Information Matt Harrell. [address], [address], [id number], [place]. tel:[phone] [facility], [address], [place], [place], [address], tel:[phone] [facility] ESOPHAGEAL REFLUX Matt Harrell. [address], [address], [place], [address], . tel:[phone] [facility], [address], [place], [place], [address], tel:[phone] [facility] ACUTE BRONCHITIS Jacinto Hatfield. [address], [address], [place], [place], [address], [place]. tel:[phone] [facility], [address], [place], [place], [address], tel:[phone] [facility] PNEUMONIA, ORGANISM NOS Matt Harrell. [address], [address], [place], [place], [address], [place]. tel:[phone] [facility], [address], [place], [place], [address], [place] tel:[phone] [facility] VACCIN FOR INFLUENZA Matt Harrell. [address], [address], [place], [place], [address], [place]. tel:[phone] Family History Family Member Type Diagnosis Age At Onset No Information Immunizations Vaccine Date Status Comments 67192 - Influenza administered Source: [place] Unspecified Payers Payer name Insurance type Covered democrat ID Authoriza tion(s) No Information Social History Type Description Quantity Date Captured Comments Sex Male Smoking Status No Information Chief Complaint And Reason For Visit No Information Reason For Referral Reason For Referral No Information History Of Present Illness Encounter Date Complaint History Of Prese nt Illness No Information Functional Status Date Functional Assessmen t No Information Instructions Date Instruction Additional Infor mation No Information Assessments Type Assessment Date No Information Patient Care Teams Name Effective Dates (start - stop) Status Members No Information
--- OUTSIDE RECORDS SUMMARY | 2025-07-02 16:42 | XMS_ITS | Patient Health Record ---
Author Organization [facility] [employer] [facility] Address [address] [facility] [address] [place] [address] Care Team Providers Care Manager Plumbing Name Role Phone Kushal Cabrales MD Primary Care Provider UnavailSmiley Han Unavailable [phone] Makayla Grant Unavailable [phone] Ariel Chan Unavailable [phone] Ashlie Esquivel Unavailable [phone] Libia Samayoa Unavailable [phone] Cal Alarcon Unavailable [phone] Allergies No Known Allergies Results Component Value Reference Range Notes LIPID PANEL, STANDARD (7600) Reviewed date:10/30/2024 08:26:35 AM Interpretation: Performing Lab:BRENDA [facility] HospitalOwyny[address] [facility] HospitalIoexttqJT[address] [facility] Notes/Report: CHOLESTEROL, TOTAL 248 <200 mg/dL HDL [...] equation in the estimation of LDL-C. Yadiel PEREZ et al. SADIE. 2013;310(19): 5757-9948 (http://education.popchips.com/faq/F AQ164) CHOL/HDLC RATIO 5.0 <5.0 (calc) NON HDL CHOLESTEROL 198 <130 mg/dL (calc) For patients with diabetes plus 1 major ASCVD risk factor, treating to a non-HDL-C goal of <100 mg/dL (LDL-C of <70 mg/dL) is considered a therapeutic option. COMPREHENSIVE METABOLIC PANE L (54372) Reviewed date:10/30/2024 08:26:14 AM Interpretation: Performing Lab:BRENDA [facility] ATM ServicesSusan V[place] [address] [address] ZlohlttUE[address] Mehran Alvarado Notes/Report: GLUCOSE 109 65-99 mg/dL Fasting reference [...] 13 10-40 U/L ALT 23 9-46 U/L HEMOGLOBIN A1c (496) Reviewed date:10/30/2024 08:25:54 AM Interpretation: Performing Lab:BRENDA [facility] ATM ServicesSus[place] [address] [address] NctawyaTR[address] Mehran Alvarado Notes/Report: HEMOGLOBIN A1c 5.3 <5.7 % of [...] diagnosis of diabetes in children. According to [place] Diabetes Association (ADA) guidelines, hemoglobin A1c <7.0% represents optimal control in non- diabetic patients. Different metrics may apply to specific patient populations. Standards of Medical Care in Diabetes(ADA). VITAMIN B12 (927) Reviewed date:10/30/2024 08:25:47 AM Interpretation: Performing Lab:Leeanna VELA-Apjwmg24993Monica Andrews[address] Mehran Alvarado MD Notes/Report: VITAMIN B12 918 339-3771 pg/mL TSH W/REFLEX TO FT4 (38865) Reviewed date:10/30/2024 08:25:41 AM Interpretation: Performing Lab:Leeanna GUTIERREZResearch Belton HospitalZxhhy[address] [address] WqcdmhgUQ[address] Mehran Alvarado Notes/Report: TSH W/REFLEX TO FT4 2.19 0.40-4.50 mIU/L VITAMIN D,25-OH,TOTAL,IA (17 306) Reviewed date:10/30/2024 08:29:40 AM Interpretation: Performing Lab:Leeanna VELA-Iddfqy73818 Renetta FitchaKS[address] Mehran Alvarado MD Notes/Report: VITAMIN D,25-OH,TOTAL,IA 24 30-100 ng/mL Vitamin D Status 25-OH Vitamin D: Deficiency: <20 ng/mL Insufficiency: 20 - 29 ng/mL Optimal: > or = 30 ng/mL For 25-OH Vitamin D testing on patients on D2-supplementation and patients for whom quantitation of D2 and D3 fractions is required, the QuestAssureD(TM) 25-OH VIT D, (D2,D3), LC/MS/MS is recommended: order code 39566 (patients >2yrs). See Note 1 Note 1 For additional information, please refer to http://education.[employer].com/faq/FA Q199 (This link is being provided for informational/ educational purposes only.) DRUG MONITOR, BENZO, QN, [place] (60719) Reviewed date:12/29/2024 03:26:07 PM Interpretation: Performing Lab:Leeanna MERIDA-Frantz [place] Fr[address] Sinclair TvxvCT[address] Jamal Zapata Jeffrey, Director - [address] [facility] Notes/Report: FASTING: NO Alphahydroxyalprazolam NEGATIVE <25 ng/mL [...] analytical performance characteristics have been determined by [employer]. It has not been cleared or approved by the FDA. This assay has been validated pursuant to the CLIA regulations and is used for clinical purposes. Healthcare Providers needing Interpretation assistance, please contact us at [phone] ( ) M-F, 8am to 10pm EST UDT Reviewed date:10/02/2024 02:34:15 PM Interpretation: Performing Lab: Notes/Report: THC N 0 - 50 ng/ml Cocaine N 0 - 300 ng/ml Amphetamine N 0 - 1000 ng/ml Buprenorphine (BUP) N 0 - 10 ng/ml Secobarbital (Bar) N 0 - 300 ng/ml Oxazepam (BZO) N 0 - 300 ng/ml 2-lkmiruqlmh-5,5-obsuwzro-9, 3-dipheny lpyrrolidine (EDDP) N 0 - 300 ng/ml Methamphetamine (MET) N 0 - 1000 ng/ml Methylenedioxymethamphetamine (MDMA) N 0 - 500 ng/ml Morphine (MOP 300/TLO0861) N 0 - 300 ng/ml Methadone (MTD) N 0 - 300 ng/ml Phencyclidine (PCP) N 0 - 25 ng/ml Nortriptyline (TCA) N 0 - 1000 ng/ml Oxycodone N 0 - 300 ng/ml x N 0 - 300 ng/ml CBC (INCLUDES DIFF/PLT) (639 9) Reviewed date:10/30/2024 08:26:05 AM Interpretation: Performing Lab:BRENDA [facility] ATM ServicesSus[place] [address] [address]jas StreetEdouardCritical Access Hospital Christiano Notes/Report: WHITE BLOOD CELL COUNT 6.6 3.8-10.8 [...] MPV 10.3 7.5-12.5 fL ABSOLUTE NEUTROPHILS 3947 7046-8915 cells/uL ABSOLUTE LYMPHOCYTES 9231 243-5109 cells/uL ABSOLUTE MONOCYTES 469 200-950 cells/uL ABSOLUTE EOSINOPHILS 337 15-500 cells/uL ABSOLUTE BASOPHILS 79 0-200 cells/uL NEUTROPHILS 59.8 LYMPHOCYTES 26.8 MONOCYTES 7.1 EOSINOPHILS 5.1 BASOPHILS 1.2 HEPATIC FUNCTION PANEL (1025 6) Reviewed date:10/30/2024 08:26:00 AM Interpretation: Performing Lab:Leeanna GUTIERREZSusan Ville [address] [address] Reyes [address] StreetmirzaThe Neuromedical Center Notes/Report: PROTEIN, TOTAL 6.3 6.1-8.1 g/dL ALBUMIN 4.0 3.6-5.1 g/dL GLOBULIN 2.3 1.9-3.7 g/dL (calc) ALBUMIN/GLOBULIN RATIO 1.7 1.0-2.5 (calc) BILIRUBIN, TOTAL 0.3 0.2-1.2 mg/dL BILIRUBIN, DIRECT 0.1 < OR = 0.2 mg/dL BILIRUBIN, INDIRECT 0.2 0.2-1.2 mg/d L (calc) ALKALINE PHOSPHATASE 51 36-130 U/L AST 13 10-40 U/L ALT 23 9-46 U/L UDT Reviewed date:06/07/2025 06:09:53 PM Interpretation: Performing Lab: Notes/Report: THC p 0 - 50 ng/ml Cocaine n 0 - 300 ng/ml Amphetamine n 0 - 1000 ng/ml Buprenorphine (BUP) n 0 - 10 ng/ml Secobarbital (Bar) n 0 - 300 ng/ml Oxazepam (BZO) n 0 - 300 ng/ml 9-fmbpnjaoaf-7,7-bxcuyvds-7, 3-dipheny lpyrrolidine (EDDP) n 0 - 300 ng/ml Methamphetamine (MET) n 0 - 1000 ng/ml Methylenedioxymethamphetamine (MDMA) n 0 - 500 ng/ml Morphine (MOP 300/TCW1931) n 0 - 300 ng/ml Methadone (MTD) n 0 - 300 ng/ml Phencyclidine (PCP) n 0 - 25 ng/ml Nortriptyline (TCA) n 0 - 1000 ng/ml Oxycodone n 0 - 300 ng/ml x n 0 - 300 ng/ml UDT Reviewed date:08/28/2024 01:28:14 PM Interpretation: Performing Lab: Notes/Report: THC n 0 - 50 ng/ml Cocaine n 0 - 300 ng/ml Amphetamine n 0 - 1000 ng/ml Buprenorphine (BUP) n 0 - 10 ng/ml Secobarbital (Bar) n 0 - 300 ng/ml Oxazepam (BZO) n 0 - 300 ng/ml 6-epluzobfyh-4,6-ekqxachx-1, 3-dipheny lpyrrolidine (EDDP) n 0 - 300 ng/ml Methamphetamine (MET) n 0 - 1000 ng/ml Methylenedioxymethamphetamine (MDMA) n 0 - 500 ng/ml Morphine (MOP 300/ZBE0259) n 0 - 300 ng/ml Methadone (MTD) n 0 - 300 ng/ml Phencyclidine (PCP) n 0 - 25 ng/ml Nortriptyline (TCA) n 0 - 1000 ng/ml Oxycodone n 0 - 300 ng/ml x n 0 - 300 ng/ml UDT Reviewed date:06/23/2025 09:57:52 PM Interpretation: Performing Lab: Notes/Report: THC neg 0 - 50 ng/ml Cocaine neg 0 - 300 ng/ml Amphetamine neg 0 - 1000 ng/ml Buprenorphine (BUP) neg 0 - 10 ng/ml Secobarbital (Bar) neg 0 - 300 ng/ml Oxazepam (BZO) pos 0 - 300 ng/ml 6-jyqoznucvk-8,2-ncmenkbo-1, 3-dipheny lpyrrolidine (EDDP) neg 0 - 300 ng/ml Methamphetamine (MET) neg 0 - 1000 ng/ml Methylenedioxymethamphetamine (MDMA) neg 0 - 500 ng/ml Morphine (MOP 300/UKH9551) neg 0 - 300 ng/ml Methadone (MTD) neg 0 - 300 ng/ml Phencyclidine (PCP) neg 0 - 25 ng/ml Nortriptyline (TCA) neg 0 - 1000 ng/ml Oxycodone neg 0 - 300 ng/ml Reason For Referral No Information Medications Medication SIG (Take, Route, Frequency, Duration) Notes Start Date End Date Status fluvoxaMINE Maleate 100 MG 1 tablet Orally twice a day; Duration: 30 days Active busPIRone HCl 10 MG 1 tablet Oral Twice a day; Duration: 30 days Active Potassium Active OMEPRAZOLE MAGNESIUM 20 MG TABLET,DELAYED RELEASE *Reorder from Dealo for eRx and Interaction Alerts* 04/02/2024 Not-Taking Doxepin HCl 3 MG 1 tablet at bedtime Orally Once a day Active Testosterone Enanthate 50 MG/0.5ML as directed Subcutaneous Active Vitamin C Active Ferrous Sulfate 325 (65 Fe) MG Oral 04/02/2024 Active SKYRIZI 150 MG/ML SUBCUTANEOUS PEN INJECTOR *Reorder from Dealo for eRx and Interaction Alerts* 04/02/2024 Active Cholecalciferol 1.25 MG (49995 UT) 1 capsule once a week Oral see sign; Duration: 28 days Active ALPRAZolam 0.5 MG 1 tablet Oral Twice a day; Duration: 30 days As needed Active Immunizations Vaccine Route Administration Date Status [...] (start date - stop date) Current Smoker 06/10/2025 - NA Sex Assigned At : Social History Observation Description Sex Assigned At Male Household Question Answer Notes Marital status: single Number of adults in household: 1 Number of children in household: 0 Tobacco Control (Standard) Question Answer Notes Tobacco use: Current smoker When did you start smoking? 06/10/2025 How often do you smoke cigarettes? Every day How many cigarettes a day do you smoke? 5 or les s How soon after you wake up do you smoke your fir st cigarette? Within 5 minutes Are you interested in quitting? Ready to quit AUDIT-C (Standard) Question Answer Notes Did you [...] NoDo you have a medical power of prosecuting attorney?: NoPublic Health and TravelHave you been to [...] NoDo you have a medical power of prosecuting attorney?: NoPublic Health and TravelHave you been to an area known to be high risk for COVID-19?: NoOtherEducation: 2 Year CollegePast steroid/HgH use?: NoGender Identity and LGBTQ IdentityAssigned sex at : MaleSexual orientation: Straight or heterosexual G Problems Problem Type SNOMED Code ICD Code Onset Dates Problem Status W/U Status Risk Notes Problem Vitamin D deficiency (45481329) Vitamin D deficiency, unspecified (E55.9) Active confirmed Problem Mild recurrent major depression (81267252) Major depressive disorder, recurrent, mild (F33.0) Active confirmed Problem Recurrent major depression in full remission (28345134) Major depressive disorder, recurrent, in full remission (F33.42) Active confirmed Problem Generalized anxiety disorder (18624513) Generalized anxiety disorder (F41.1) Active confirmed Problem Fatigue (40817585) Other fatigue (R53.83) Active confirmed Problem Insomnia (033073802) Insomnia, unspecified type (G47.00) Active confirmed Problem Panic disorder (586895138) Panic disorder (F41.0) Active confirmed Problem Low testosterone (914644573) Low testosterone (R79.89) Active confirmed Problem Tobacco use (575293298) Nicotine use (Z72.0) Active confirmed Vital Signs Heart Rate 69 /min 06/22/2025 Blood pressure diastolic 76 mm Hg 06/22/2025 Height-cm 172.72 cm 06/22/2025 Weight-kg 75.57 kg 06/22/2025 Height 68.00 in 06/22/2025 Blood pressure systolic 114 mm Hg 06/22/2025 Weight 166.6 lbs 06/22/2025 BMI 25.33 kg/m2 06/22/2025 Encounters Encounter Location Date Provider Diagnosis [facility] [employer] [address] [address] 07/09/2024 Makayla Grant [facility] [email or web address] [address] 07/23/2024 Ashlie Esquivel [facility] [email or web address] [address] 06/22/2025 Smiley Lomax Generalized anxiety disorder F41.1 ; Panic disorder F41.0 ; Insomnia, unspecified type G47.00 ; Major depressive disorder, recurrent, mild F33.0 ; Other fatigue R53.83 ; Vitamin D deficiency, unspecified E55.9 and Low testosterone R79.89 [facility] [email or web address] [address] 07/08/2024 Ashlie Esquivel Generalized anxiety disorder F41.1 ; Major depressive disorder, recurrent, mild F33.0 ; Panic disorder F41.0 ; Insomnia, unspecified G47.00 and Alcohol abuse, in remission F10.11 [facility] [employer] [address] [address] 07/31/2024 Makayla Grant Generalized anxiety disorder F41.1 and Recurrent major depressive episodes, mild F33.0 [facility] [address] [facility] [address] [place] [address] 08/28/2024 Ashlie Esquivel Generalized anxiety disorder F41.1 ; Major depressive disorder, recurrent, mild F33.0 ; Panic disorder F41.0 ; Insomnia, unspecified G47.00 and Alcohol abuse, in remission F10.11 [facility] [address] [facility] [address] [place] [address] 09/03/2024 Makayla Grant Generalized anxiety disorder F41.1 and Depression, major, recurrent, mild F33.0 [facility] [address] [facility] [address] [place] [address] 10/01/2024 Smiley Lomax Generalized anxiety disorder F41.1 ; Major depressive disorder, recurrent, mild F33.0 ; Primary insomnia F51.01 ; Panic disorder F41.0 and Alcohol abuse, in remission F10.11 [place] [address] [address] 10/02/2024 Makayla Grant Generalized anxiety disorder F41.1 and Recurrent major depressive episodes, mild F33.0 [facility] [address] [address] 10/02/2024 Ariel Chan ASHWIN (generalized anx iety disorder) F41.1 [facility] [address] [address] 10/28/2024 Cal Alarcon ASHWIN (generalized anx iety disorder) F41.1 and Other fatigue R53.83 [facility] [address] [place] [address] 10/30/2024 Makayla Grant Generalized anxiety disorder F41.1 and Depression, major, recurrent, mild F33.0 [facility] [address] [place] [address] 10/30/2024 Smiley Lomax Generalized anxiety disorder F41.1 ; Major depressive disorder, recurrent, mild F33.0 ; Primary insomnia F51.01 ; Insomnia, unspecified G47.00 ; Panic disorder F41.0 ; Other fatigue R53.83 ; Alcohol abuse, in remission F10.11 and Vitamin D deficiency, unspecified E55.[address] [address] 11/13/2024 Smileyestrada Lomax Generalized anxiety disorder F41.1 ; Panic disorder F41.0 ; Vitamin D deficiency, unspecified E55.9 ; Alcohol abuse, in remission F10.11 and Insomnia, unspecified G47.[address] [address] 11/27/2024 Makayla Grant Generalized anxiety disorder F41.1 and Depression, major, recurrent, mild F33.[address] [address] 12/11/2024 Smileyestrada Escobardiane Generalized anxiety disorder F41.1 ; Panic disorder F41.0 ; Insomnia, unspecified G47.00 ; Vitamin D deficiency, unspecified E55.9 ; Low testosterone R79.89 and Alcohol abuse, in remission F10.[address] [address] 01/08/2025 Smiley Shawndiane Generalized anxiety disorder F41.1 ; Panic disorder F41.0 ; Insomnia, unspecified G47.00 ; Vitamin D deficiency, unspecified E55.9 ; Low testosterone R79.89 and Alcohol abuse, in remission F10.[address] [address] 02/04/2025 Smiley Lomax Generalized anxiety disorder F41.1 ; Panic disorder F41.0 ; Primary insomnia F51.01 ; Vitamin D deficiency, unspecified E55.9 ; Low testosterone R79.89 ; Encounter for screening for cardiovascular disorders Z13.6 and Encounter for screening for depression Z13.[address] [address] 03/19/2025 Smiley Shawndiane Generalized anxiety disorder F41.1 ; Panic disorder F41.0 ; Insomnia, unspecified type G47.00 ; Major depressive disorder, recurrent, in full remission F33.42 ; Low testosterone R79.89 ; Vitamin D deficiency, unspecified E55.9 ; Negative depression screening Z13.31 ; Encounter for screening for cardiovascular disorders Z13.6 and Encounter for screening for depression Z13.31 [facility] [employer] [facility] [address] [facility] [address] [place] [address] 04/20/2025 Cal Clubb Generalized anxiety disorder F41.1 ; Panic disorder F41.0 ; Major depressive disorder, recurrent, in full remission F33.42 ; Insomnia, unspecified type G47.00 ; Encounter for screening for depression Z13.31 ; Encounter for screening for cardiovascular disorders Z13.6 ; Low testosterone R79.89 ; Vitamin D deficiency, unspecified E55.9 and Nicotine use Z72.0 [facility] [employer] [place] [address] [facility] [address] [place] [address] 05/06/2025 Smiley Lomax Panic disorder F41.0 ; Generalized anxiety disorder F41.1 ; Major depressive disorder, recurrent, in full remission F33.42 ; Encounter for screening for depression Z13.31 ; Encounter for screening for cardiovascular disorders Z13.6 and Vitamin D deficiency, unspecified E55.9 [facility] [employer] [facility] [address] [address] 05/17/2025 Cal Clubb Generalized anxiety disorder F41.1 ; Panic disorder F41.0 ; Major depressive disorder, recurrent, in full remission F33.42 ; Vitamin D deficiency, unspecified E55.9 ; Encounter for screening for depression Z13.31 and Encounter for screening for cardiovascular disorders Z13.6 [employer] [facility] [address] [address] 05/17/2025 Libia Samayoa Generalized anxiety disorder F41.1 ; Insomnia, unspecified G47.00 ; Depression, major, recurrent, mild F33.0 ; Encounter for screening for depression Z13.31 ; Nicotine use Z72.0 and Encounter for screening for cardiovascular disorders Z13.6 [employer] [facility] [address] [place] [address] 05/27/2025 Libia Hinderliter Nicotine use Z72.0 ; Generalized anxiety disorder F41.1 ; Insomnia, unspecified G47.00 and Encounter for screening for depression Z13.31 [facility] [employer] [facility] [address] [place] [address] 05/31/2025 Cal Agnes Generalized anxiety disorder F41.1 ; Psychophysiological insomnia F51.04 ; Nicotine use Z72.0 and Encounter for screening for depression Z13.31 [facility] [address] [place] [address] 06/01/2025 Libia Danita Generalized anxiety disorder F41.1 ; Major depressive disorder, recurrent, mild F33.0 ; Insomnia, unspecified G47.00 and Encounter for screening for depression Z13.31 [facility], [facility] [address] [place] [address] 06/03/2025 Smiley Lomax Generalized anxiety disorder F41.1 ; Panic disorder F41.0 ; Insomnia, unspecified type G47.00 ; Major depressive disorder, recurrent, mild F33.0 ; Nicotine use Z72.0 ; Other fatigue R53.83 ; Vitamin D deficiency, unspecified E55.9 and Low testosterone R79.89 [facility], [facility] [address] [place] [address] 06/22/2025 Makayla Grant Generalized anxiety disorder F41.1 and Depression, major, recurrent, moderate F33.1 [facility] [address] [place] [address] 10/30/2024 Smiley Lomax [facility], [facility] [address] [place] [address] 05/11/2025 Smiley Lomax [facility], [facility] [address] [place] [address] 07/06/2024 Ashlie Esquivel [facility], [facility] [address] [place] [address] 07/06/2024 Ashlie Esquivel [facility], [facility] [address] [place] [address] 08/14/2024 Ashlie Esquivel [facility], [facility] [address] [place] [address] 09/14/2024 Ashlie Esquivel [facility], [facility] [address] [place] [address] 09/14/2024 [facility] [address] [place] [address] 09/14/2024 Ashlie Esquivel [facility], [facility] [address] [place] [address] 09/14/2024 Ashlie Esquivel [facility], [facility] [address] [place] [address] 09/18/2024 Ashlie Esquivel [facility], [facility] [address] [place] [address] 10/05/2024 Smiley Lomax [facility], [facility] [address] [place] [address] 10/20/2024 Smiley Lomax Panic disorder F41.0 [facility], [facility] [address] [place] [address] 10/25/2024 Smiley Lomax [facility], [facility] [address] [place] [address] 10/26/2024 Smiley Lomax [facility], [facility] [address] [place] [address] 12/20/2024 Smiley Lomax Generalized anxiety disorder F41.1 [facility], [facility] [address] [place] [address] 12/21/2024 Smiley Loamx [facility], [facility] [address] [place] [address] 12/22/2024 Smiley Lomax [facility], [facility] [address] [place] [address] 01/15/2025 Smiley Lomax [facility], [facility] [address] [place] [address] 01/16/2025 Smiley Lomax [facility], [facility] [address] [place] [address] 01/16/2025 Smiley Lomax [facility], [facility] [address] [place] [address] 02/10/2025 Smiley Lomax Panic disorder F41.0 [facility], [facility] [address] [place] [address] 02/17/2025 Smiley Lomax [facility], [facility] [address] [place] [address] 02/24/2025 Smliey Lomax [facility], [facility] [address] [place] [address] 03/19/2025 Smiley Lomax Generalized anxiety disorder F41.1 [facility], [facility] [address] [place] [address] 03/26/2025 Smiley Lomax [facility], [facility] [address] [place] [address] 03/26/2025 Smiley Lomax [facility], [facility] [address] [place] [address] 03/27/2025 Smiley Lomax Generalized anxiety disorder F41.1 [facility], [facility] [address] [place] [address] 04/20/2025 Smiley Lomax [facility], [facility] [address] [place] [address] 04/20/2025 Smiley Lomax [facility], [facility] [address] [place] [address] 04/20/2025 Smiley Lomax [facility], [facility] [address] [place] [address] 04/20/2025 Smiley Lomax Panic disorder F41.0 [facility], [facility] [address] [place] [address] 04/27/2025 Smiley Lomax [facility], [facility] [address] [place] [address] 04/28/2025 Smiley Lomax Generalized anxiety disorder F41.1 [facility], [facility] [address] [place] [address] 05/01/2025 Smiley Lomax [facility], [facility] [address] [place] [address] 05/03/2025 Smiley Lomax [facility], [facility] [address] [place] [address] 05/03/2025 Smiley Lomax [facility], [facility] [address] [place] [address] 05/03/2025 Smiley Lomax [facility], [facility] [address] [place] [address] 05/03/2025 Smiley [facility] [email or web address], [facility] [address] [place] [address] 05/06/2025 Smiley [facility], [facility] [address] [address] [place] [address] 05/07/2025 [facility], [facility] [address] [place] [address] 05/13/2025 [facility], [facility] [address] [place] [address] 06/01/2025 [facility], [facility] [address] [place] [address] 06/04/2025 [facility], [facility] [address] [place] [address] 06/08/2025 [facility], [facility] [address] [place] [address] 06/10/2025 [facility], [facility] [address] [place] [address] 06/17/2025 [facility], [facility] [address] [place] [address] 06/17/2025 [facility] Assessments Encounter Date Diagnosis (ICD Code) Assessment Notes Treatment Notes Treatment Clinical Notes Section Notes 07/08/2024 Major depressive disorder, recurrent, mild (ICD-10 [...] [facility]: trintellix, vraylar, propranolol, trazodone, clonazepam are all green. Impaired folic acid metabolizer, discussed script or OTC methylated folate, he prefers Gladys for vitamins. 07/31/2024 Generalized anxiety disorder (ICD-10 - F41.1) [...] in the past.Client born and raised in [place] to parents who have been over [...] in the past.Client born and raised in [place] to parents who have been over [...] of his siblings have alcohol abuse problems. 08/28/2024 Generalized anxiety disorder (ICD-10 - F41.1) [...] in the past.Client born and raised in [place] to parents who have been over [...] in the past.Client born and raised in [place] parents who have been over [...] to practice good sleep hygiene and consider non-pharmacolog ical interventions for sleep. 4. Panic Disorder - [...] due to improved symptoms and upcoming holidays. 10/02/2024 Generalized anxiety disorder (ICD-10 - F41.1) [...] in the past.Client born and raised in [place] to parents who have been over [...] in the past.Client born and raised in [place] to parents who have been over [...] 1 mg today. b. Consider adding quetiapine extended-releas e at next appointment. c. Encourage continued breathing exercises, cognitive therapy, and behavioral therapy. d. encouraged to make more frequent appointments with la ben[facility]. e. discussed IOP programs and possible inpatient hospitalization . 3. hypersomnia/ins omnia - Patient reports difficulty falling asleep and [...] effectiveness. - Advise considering inpatient care at [facility] if symptoms become unmanageable. Additional Notes: [...] 1 mg today. b. Consider adding quetiapine extended-releas e at next appointment. c. Encourage continued breathing exercises, cognitive therapy, and behavioral therapy. d. encouraged to make more frequent appointments with therapist. makayla e. discussed IOP programs and possible inpatient hospitalization . 3. hypersomnia/ins omnia - Patient reports difficulty falling asleep and [...] effectiveness. - Advise considering inpatient care at [facility] if symptoms become unmanageable. Additional Notes: [...] in the past.Client born and raised in [place] to parents who have been over [...] in the past.Client born and raised in [place] parents who have been over [...] his siblings have alcohol abuse problems. 10/30/2024 Generalized anxiety disorder (ICD-10 - F41.1) [...] Panic-like symptoms with physical manifestations (arm pain, lightheadedness , restlessness) Plan: - Discontinue escitalopram - Initiate [...] up 4 weeks, sooner if concerns arise 11/27/2024 Generalized anxiety disorder (ICD-10 - F41.1) [...] in the past.Client born and raised in [place] to parents who have been over [...] in the past.Client born and raised in [place] parents who have been over [...] of his siblings have alcohol abuse problems. 12/11/2024 Generalized anxiety disorder (ICD-10 - F41.1) [...] sleep, and address any new concerns 02/04/2025 Generalized anxiety disorder (ICD-10 - F41.1) 02/04/2025 Panic disorder (ICD-10 - F41.0) 02/10/2025 Panic disorder (ICD-10 - F41.0) 03/19/2025 Generalized anxiety disorder (ICD-10 - F41.1) error, fluvoxamine only taking 0.5 tablet in morning, 1.5 tablet at bedtime 03/19/2025 Generalized anxiety disorder (ICD-10 - F41.1) 03/27/2025 Generalized anxiety disorder (ICD-10 - F41.1) 04/20/2025 Panic disorder (ICD-10 - F41.0) 03/19/2025 Panic disorder (ICD-10 - F41.0) 04/20/2025 Generalized anxiety disorder (ICD-10 - F41.1) error, fluvoxamine only taking 0.5 tablet in morning, 1.5 tablet at bedtime 04/20/2025 Panic disorder (ICD-10 - F41.0) 04/28/2025 Generalized anxiety disorder (ICD-10 - F41.1) 05/06/2025 Generalized anxiety disorder (ICD-10 - F41.1) 05/06/2025 Panic disorder (ICD-10 - F41.0) 05/17/2025 Generalized anxiety disorder (ICD-10 - F41.1) 05/17/2025 Panic disorder (ICD-10 - F41.0) 05/17/2025 Generalized anxiety disorder (ICD-10 - F41.1) Generalized Anxiety Disorder with recent exacerbation Assessment: Patient reports a recent worsening of anxiety symptoms over the past week, despite a 10-month period of stability. He describes cognitive difficulties at work, including inability to process information and fear of making mistakes. Patient has been missing work due to anxiety and reports low energy, low motivation, and spending significant time in bed. He has been experiencing near-panic attacks, which he manages by going for walks. Patient also reports irritability, especially when interacting with family members. Current medications, including clonazepam, are reported as ineffective. New medications were recently prescribed by Cal. Patient has a family history of mental health issues and a personal history of alcohol use disorder, for which he attended rehab 5 years ago. Plan: - Continue newly prescribed medications - Implement TIP skills for crisis management: - Temperature (cold exposure) - Intense exercise - Paced breathing - Paired muscle relaxation - Schedule weekly therapy sessions - Facilitate transition to long-term therapy with previous therapist, Makayla Sleep Disturbances Assessment: Patient reports longstanding sleep issues, including waking every 2 hours and difficulty falling asleep. He mentions a family history of sleep problems. Recently, the patient has been experiencing night terrors for the past 6 months, which involve screaming and falling out of bed while fighting. A sleep study is scheduled for the following day to further evaluate these issues. Plan: - Proceed with scheduled sleep study - Reassess sleep patterns and study results at next appointment 05/17/2025 Insomnia, unspecified (ICD-10 - G47.00) Generalized Anxiety Disorder with recent exacerbation Assessment: Patient reports a recent worsening of anxiety symptoms over the past week, despite a 10-month period of stability. He describes cognitive difficulties at work, including inability to process information and fear of making mistakes. Patient has been missing work due to anxiety and reports low energy, low motivation, and spending significant time in bed. He has been experiencing near-panic attacks, which he manages by going for walks. Patient also reports irritability, especially when interacting with family members. Current medications, including clonazepam, are reported as ineffective. New medications were recently prescribed by Cal. Patient has a family history of mental health issues and a personal history of alcohol use disorder, for which he attended rehab 5 years ago. Plan: - Continue newly prescribed medications - Implement TIP skills for crisis management: - Temperature (cold exposure) - Intense exercise - Paced breathing - Paired muscle relaxation - Schedule weekly therapy sessions - Facilitate transition to long-term therapy with previous therapist, Makayla Sleep Disturbances Assessment: Patient reports longstanding sleep issues, including waking every 2 hours and difficulty falling asleep. He mentions a family history of sleep problems. Recently, the patient has been experiencing night terrors for the past 6 months, which involve screaming and falling out of bed while fighting. A sleep study is scheduled for the following day to further evaluate these issues. Plan: - Proceed with scheduled sleep study - Reassess sleep patterns and study results at next appointment 05/27/2025 Generalized anxiety disorder (ICD-10 - F41.1) Generalized Anxiety Disorder Assessment: Patient reports experiencing severe anxiety symptoms, particularly in the morning, with physical manifestations including nausea and racing thoughts. The anxiety has expanded to affect both work and non-work environments, whereas previously it was limited to non-work settings. Current medication (clonazepam) is reported as ineffective, with a new medication recently started but not yet at full therapeutic effect. Patient reports a history of multiple medication trials and intensive outpatient therapy. Sleep disturbances are noted, with only 4 hours of sleep reported and racing thoughts. The patient expresses a fear of experiencing anxiety, which may be contributing to the persistence and intensity of symptoms. Family history of anxiety on both maternal and paternal sides is noted, suggesting a potential genetic predisposition. Plan: - Continue current medication regimen per Cal - Encourage continuation of previously discussed coping strategies, including removing himself from anxiety-provoki ng situations when possible. - Recommend re-establishing a routine for work preparation to promote organization and reduce anxiety triggers. - Continue to utilize cold exposure techniques (TIP skills) for acute anxiety management. - Await sleep study consultation (scheduled after June 17, 2025) for further evaluation of sleep disturbances. 05/27/2025 Nicotine use (ICD-10 - Z72.0) Generalized Anxiety Disorder Assessment: Patient reports experiencing severe anxiety symptoms, particularly in the morning, with physical manifestations including nausea and racing thoughts. The anxiety has expanded to affect both work and non-work environments, whereas previously it was limited to non-work settings. Current medication (clonazepam) is reported as ineffective, with a new medication recently started but not yet at full therapeutic effect. Patient reports a history of multiple medication trials and intensive outpatient therapy. Sleep disturbances are noted, with only 4 hours of sleep reported and racing thoughts. The patient expresses a fear of experiencing anxiety, which may be contributing to the persistence and intensity of symptoms. Family history of anxiety on both maternal and paternal sides is noted, suggesting a potential genetic predisposition. Plan: - Continue current medication regimen per Cal - Encourage continuation of previously discussed coping strategies, including removing himself from anxiety-provoki ng situations when possible. - Recommend re-establishing a routine for work preparation to promote organization and reduce anxiety triggers. - Continue to utilize cold exposure techniques (TIP skills) for acute anxiety management. - Await sleep study consultation (scheduled after June 17, 2025) for further evaluation of sleep disturbances. 05/31/2025 Generalized anxiety disorder (ICD-10 - F41.1) 05/31/2025 Psychophysiological insomnia (ICD-10 - F51.04) Improving sleep hygiene is giron to getting better rest and feeling more energized during the day. Here are some practical tips to help you establish a healthy sleep routine: 1. Consistent Sleep Schedule Go to bed and wake up at the same time every day, even on weekends. This helps regulate your body's internal clock (circadian rhythm). Try to stick within a window of 7-9 hours of sleep per night for adults. 2. Create a Relaxing Bedtime Routine Wind down before bed by engaging in calming activities like reading, listening to soft music, or practicing relaxation techniques (e.g., deep breathing, meditation). Avoid stimulating activities, such as watching action-packed TV shows or engaging in intense conversations. 3. Limit Exposure to Screens Reduce screen time (phones, tablets, computers) at least 30-60 minutes before bed. The blue light emitted by devices can interfere with your ability to fall asleep by suppressing melatonin production. 4. Create a Comfortable Sleep Environment Keep your bedroom cool, dark, and quiet. Aim for a temperature between 60-67 degree(s) F (15-20 degree(s) C), as cooler environments tend to promote deeper sleep. Use blackout curtains or a sleep mask to block light, and consider using earplugs or a white noise machine if noise is a problem. 5. Watch Your Diet Avoid large meals, caffeine, and alcohol in the evening. Caffeine can stay in your system for hours, and while alcohol might make you feel sleepy, it can disrupt your sleep cycle. Drink plenty of water during the day, but reduce fluid intake an hour or two before bed to minimize nighttime trips to the bathroom. 6. Limit Naps If you find you need to nap during the day, keep naps short (20-30 minutes), and try to take them in the early afternoon. Longer or late naps can interfere with your nighttime sleep. 7. Physical Activity Regular exercise is great for sleep, but avoid vigorous exercise close to bedtime. A good rule of thumb is to finish intense workouts at least 3 hours before you plan to sleep. 8. Associate the Bed with Sleep Only use your bed for sleep and intimacy. This helps condition your mind to associate the bed with relaxation and rest, making it easier to fall asleep. If you can't fall asleep within 20 minutes, get out of bed and do something relaxing (like reading or light stretching) until you feel sleepy. 9. Manage Stress and Anxiety Try to address any sources of stress or anxiety before bed. Journaling or writing down worries can be helpful for clearing your mind. Consider practicing mindfulness or relaxation techniques, such as progressive muscle relaxation, to calm your body and mind. 10. Evaluate Your Mattress and Pillows Ensure your mattress and pillows are comfortable and supportive. An uncomfortable sleeping surface can lead to poor sleep quality. Bonus Tip: Stay Patient Developing good sleep hygiene can take time. Be patient and consistent with your routine, and remember that it can take a few weeks for the effects to show. patient has an apt with sleep specialist scheduled 06/01/2025 Major depressive disorder, recurrent, mild (ICD-10 - F33.0) Depression with sleep disturbance and reduced motivation Assessment: Tawanda reports experiencing depressive symptoms, primarily manifesting as disrupted sleep patterns and decreased motivation. He has missed work recently due to these symptoms, including not attending work on the day of the session. Tawanda acknowledges difficulty getting out of bed and engaging in previously routine activities such as making his bed, cleaning his room, and maintaining daily routines. He expresses a desire to get all my medicines balanced out and reduce daily worries. Tawanda recognizes that initiating tasks is challenging but understands that engagement often leads to improved mood. The patient is planning to return to work the following day, which is causing some anxiety and concern about sleep. Plan: - Implement a structured sleep routine: - Patient to attempt going to bed at 9:00 PM - Utilize relaxation techniques such as listening to podcasts and reading before sleep - Gradual reintroduction of daily routines: - Focus on simple tasks like making the bed and cleaning the room - Create and follow a to-do list, including grocery shopping and meal preparation - Anxiety management strategies for work: - Take breaks as needed when feeling anxious - Use grounding techniques such as getting fresh air or TIP (Temperature, Intense exercise, Paced breathing, Paired muscle relaxation) - Schedule follow-up appointment for the following week to assess progress 06/01/2025 Generalized anxiety disorder (ICD-10 - F41.1) Depression with sleep disturbance and reduced motivation Assessment: Tawanda reports experiencing depressive symptoms, primarily manifesting as disrupted sleep patterns and decreased motivation. He has missed work recently due to these symptoms, including not attending work on the day of the session. Tawanda acknowledges difficulty getting out of bed and engaging in previously routine activities such as making his bed, cleaning his room, and maintaining daily routines. He expresses a desire to get all my medicines balanced out and reduce daily worries. Tawanda recognizes that initiating tasks is challenging but understands that engagement often leads to improved mood. The patient is planning to return to work the following day, which is causing some anxiety and concern about sleep. Plan: - Implement a structured sleep routine: - Patient to attempt going to bed at 9:00 PM - Utilize relaxation techniques such as listening to podcasts and reading before sleep - Gradual reintroduction of daily routines: - Focus on simple tasks like making the bed and cleaning the room - Create and follow a to-do list, including grocery shopping and meal preparation - Anxiety management strategies for work: - Take breaks as needed when feeling anxious - Use grounding techniques such as getting fresh air or TIP (Temperature, Intense exercise, Paced breathing, Paired muscle relaxation) - Schedule follow-up appointment for the following week to assess progress 06/03/2025 Generalized anxiety disorder (ICD-10 - F41.1) 06/03/2025 Panic disorder (ICD-10 - F41.0) 06/22/2025 Generalized anxiety disorder (ICD-10 - F41.1) 06/22/2025 Depression, major, recurrent, moderate (ICD-10 - F33.1) 06/22/2025 Generalized anxiety disorder (ICD-10 - F41.1) 06/03/2025 Insomnia, unspecified type (ICD-10 - G47.00) 06/22/2025 Panic disorder (ICD-10 - F41.0) 05/31/2025 Nicotine use (ICD-10 - Z72.0) 06/01/2025 Insomnia, unspecified (ICD-10 - G47.00) Depression with sleep disturbance and reduced motivation Assessment: Tawanda reports experiencing depressive symptoms, primarily manifesting as disrupted sleep patterns and decreased motivation. He has missed work recently due to these symptoms, including not attending work on the day of the session. Tawanda acknowledges difficulty getting out of bed and engaging in previously routine activities such as making his bed, cleaning his room, and maintaining daily routines. He expresses a desire to get all my medicines balanced out and reduce daily worries. Tawanda recognizes that initiating tasks is challenging but understands that engagement often leads to improved mood. The patient is planning to return to work the following day, which is causing some anxiety and concern about sleep. Plan: - Implement a structured sleep routine: - Patient to attempt going to bed at 9:00 PM - Utilize relaxation techniques such as listening to podcasts and reading before sleep - Gradual reintroduction of daily routines: - Focus on simple tasks like making the bed and cleaning the room - Create and follow a to-do list, including grocery shopping and meal preparation - Anxiety management strategies for work: - Take breaks as needed when feeling anxious - Use grounding techniques such as getting fresh air or TIP (Temperature, Intense exercise, Paced breathing, Paired muscle relaxation) - Schedule follow-up appointment for the following week to assess progress 05/27/2025 Insomnia, unspecified (ICD-10 - G47.00) Generalized Anxiety Disorder Assessment: Patient reports experiencing severe anxiety symptoms, particularly in the morning, with physical manifestations including nausea and racing thoughts. The anxiety has expanded to affect both work and non-work environments, whereas previously it was limited to non-work settings. Current medication (clonazepam) is reported as ineffective, with a new medication recently started but not yet at full therapeutic effect. Patient reports a history of multiple medication trials and intensive outpatient therapy. Sleep disturbances are noted, with only 4 hours of sleep reported and racing thoughts. The patient expresses a fear of experiencing anxiety, which may be contributing to the persistence and intensity of symptoms. Family history of anxiety on both maternal and paternal sides is noted, suggesting a potential genetic predisposition. Plan: - Continue current medication regimen per Cal - Encourage continuation of previously discussed coping strategies, including removing himself from anxiety-provoki ng situations when possible. - Recommend re-establishing a routine for work preparation to promote organization and reduce anxiety triggers. - Continue to utilize cold exposure techniques (TIP skills) for acute anxiety management. - Await sleep study consultation (scheduled after June 17, 2025) for further evaluation of sleep disturbances. 05/17/2025 Depression, major, recurrent, mild (ICD-10 - F33.0) Generalized Anxiety Disorder with recent exacerbation Assessment: Patient reports a recent worsening of anxiety symptoms over the past week, despite a 10-month period of stability. He describes cognitive difficulties at work, including inability to process information and fear of making mistakes. Patient has been missing work due to anxiety and reports low energy, low motivation, and spending significant time in bed. He has been experiencing near-panic attacks, which he manages by going for walks. Patient also reports irritability, especially when interacting with family members. Current medications, including clonazepam, are reported as ineffective. New medications were recently prescribed by Cal. Patient has a family history of mental health issues and a personal history of alcohol use disorder, for which he attended rehab 5 years ago. Plan: - Continue newly prescribed medications - Implement TIP skills for crisis management: - Temperature (cold exposure) - Intense exercise - Paced breathing - Paired muscle relaxation - Schedule weekly therapy sessions - Facilitate transition to long-term therapy with previous therapist, Makayla Sleep Disturbances Assessment: Patient reports longstanding sleep issues, including waking every 2 hours and difficulty falling asleep. He mentions a family history of sleep problems. Recently, the patient has been experiencing night terrors for the past 6 months, which involve screaming and falling out of bed while fighting. A sleep study is scheduled for the following day to further evaluate these issues. Plan: - Proceed with scheduled sleep study - Reassess sleep patterns and study results at next appointment 05/17/2025 Major depressive disorder, recurrent, in full remission (ICD-10 - F33.42) 05/06/2025 Major depressive disorder, recurrent, in full remission (ICD-10 - F33.42) 04/20/2025 Major depressive disorder, recurrent, in full remission (ICD-10 - F33.42) 03/19/2025 Insomnia, unspecified type (ICD-10 - G47.00) [...] for sleep, and address any new concerns 11/13/2024 Panic disorder (ICD-10 - F41.0) Anxiety/Panic Disorder - Severe anxiety affecting daily life, work, and social activities - Panic-like symptoms with physical manifestations (arm pain, lightheadedness , restlessness) Plan: - Discontinue escitalopram - Initiate [...] 4 weeks, sooner if concerns arise 12/11/2024 Insomnia, unspecified (ICD-10 - G47.00) Anxiety/Panic [...] to practice good sleep hygiene and consider non-pharmacolog ical interventions for sleep. 4. Panic Disorder - [...] due to improved symptoms and upcoming holidays. 08/28/2024 Major depressive disorder, recurrent, mild (ICD-10 - F33.0) cont rexulti 2mg daily cont therapy 07/08/2024 Panic disorder (ICD-10 - F41.0) cont clonazepam 0.5mg qd prn-goal minimize use (increase qty #10) use coping skills 07/08/2024 Insomnia, unspecified (ICD-10 - G47.00) has avail, not been taking: trazodone 50mg, take 1-2 tabs qhs prn insomnia improve sleep hygiene 10/01/2024 Primary insomnia (ICD-10 - F51.01) Assessment [...] to practice good sleep hygiene and consider non-pharmacolog ical interventions for sleep. 4. Panic Disorder - [...] due to improved symptoms and upcoming holidays. 08/28/2024 Panic disorder (ICD-10 - F41.0) cont clonazepam 0.5mg qd prn-goal minimize use (increase qty #10) use coping skills 10/30/2024 Primary insomnia (ICD-10 - F51.01) Assessment [...] Panic-like symptoms with physical manifestations (arm pain, lightheadedness , restlessness) Plan: - Discontinue escitalopram - Initiate [...] 4 weeks, sooner if concerns arise 02/04/2025 Vitamin D deficiency, unspecified (ICD-10 - E55.9) 01/08/2025 Insomnia, unspecified (ICD-10 - G47.00) Anxiety [...] for sleep, and address any new concerns 03/19/2025 Major depressive disorder, recurrent, in full remission (ICD-10 - F33.42) 04/20/2025 Insomnia, unspecified type (ICD-10 - G47.00) 05/17/2025 Vitamin D deficiency, unspecified (ICD-10 - E55.9) 05/06/2025 Encounter for screening for depression (ICD-10 - Z13.31) 05/17/2025 Encounter for screening for depression (ICD-10 - Z13.31) Generalized Anxiety Disorder with recent exacerbation Assessment: Patient reports a recent worsening of anxiety symptoms over the past week, despite a 10-month period of stability. He describes cognitive difficulties at work, including inability to process information and fear of making mistakes. Patient has been missing work due to anxiety and reports low energy, low motivation, and spending significant time in bed. He has been experiencing near-panic attacks, which he manages by going for walks. Patient also reports irritability, especially when interacting with family members. Current medications, including clonazepam, are reported as ineffective. New medications were recently prescribed by Cal. Patient has a family history of mental health issues and a personal history of alcohol use disorder, for which he attended rehab 5 years ago. Plan: - Continue newly prescribed medications - Implement TIP skills for crisis management: - Temperature (cold exposure) - Intense exercise - Paced breathing - Paired muscle relaxation - Schedule weekly therapy sessions - Facilitate transition to long-term therapy with previous therapist, Makayla Sleep Disturbances Assessment: Patient reports longstanding sleep issues, including waking every 2 hours and difficulty falling asleep. He mentions a family history of sleep problems. Recently, the patient has been experiencing night terrors for the past 6 months, which involve screaming and falling out of bed while fighting. A sleep study is scheduled for the following day to further evaluate these issues. Plan: - Proceed with scheduled sleep study - Reassess sleep patterns and study results at next appointment 05/27/2025 Encounter for screening for depression (ICD-10 - Z13.31) Generalized Anxiety Disorder Assessment: Patient reports experiencing severe anxiety symptoms, particularly in the morning, with physical manifestations including nausea and racing thoughts. The anxiety has expanded to affect both work and non-work environments, whereas previously it was limited to non-work settings. Current medication (clonazepam) is reported as ineffective, with a new medication recently started but not yet at full therapeutic effect. Patient reports a history of multiple medication trials and intensive outpatient therapy. Sleep disturbances are noted, with only 4 hours of sleep reported and racing thoughts. The patient expresses a fear of experiencing anxiety, which may be contributing to the persistence and intensity of symptoms. Family history of anxiety on both maternal and paternal sides is noted, suggesting a potential genetic predisposition. Plan: - Continue current medication regimen per Cal - Encourage continuation of previously discussed coping strategies, including removing himself from anxiety-provoki ng situations when possible. - Recommend re-establishing a routine for work preparation to promote organization and reduce anxiety triggers. - Continue to utilize cold exposure techniques (TIP skills) for acute anxiety management. - Await sleep study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
--- OUTSIDE RECORDS SUMMARY | 2025-07-02 16:42 | XMS_ITS | Continuity of Care Document ---
Author Organization [facility] Address [address] [facility] [address] [place] [address] Phone Care Team Providers Care Psychological Stress Evaluator Name Role Phone Cristiano Lee MD Unavailable Unavailable Allergies, Adverse Reactions, Alerts Substance Reaction Status Criticality No Known Allergies Active No Inform ation Medications Medication Instructions Dosage Effective Dates (start - stop) Status Comments Fish Oil Concentrate 1,000 mg capsule - Active Prilosec 20 mg capsule,delayed release - Active Procedures Procedure Date OFFICE CONSULTATION Advance Directives Directive Yes / No Effective Date File Name No Information Encounters Encounter Description Practice Location Reason(s) For Visit Diagnoses Date Provider Providers Copied on Encounter [facility], [address] [place] [address], [facility], tel:[phone] [facility] No Information 6 Rosa Quinonez. [address] [place] [address], [id number] . tel:[phone] OFFICE CONSULTATION [facility], [address] [place] [address], [facility], tel:[phone] [facility] eval R leg (chief complaint) Pain of right lower extremity 6 Rosa Quinonez. [address] [place], [place], [id number] . tel:[phone] Referring Provider: Sim Hidalgo, [address], [place], [address]. tel:[phone] Family History Family Member Type Diagnosis Age At Onset Sister Problem (finding) Alive and well Payers Payer name Insurance type Covered alliance party ID Kenia ortega(s) No Information Social History Type Description Quantity Date Captured Comments Alcohol Use Details Unknown Caffeine Use Details Unknown Tobacco Use Status No Information Smoking Status No Information Sex Male Chief Complaint And Reason For Visit No Information Reason For Referral Reason For Referral No Information History Of Present Illness Encounter Date Complaint History Of Prese nt Illness eval R leg Functional Status Date Functional Assessmen t No Information Instructions Date Instruction Additional Infor mation activity as tolerated Related to Pain of right lower extremity apply heating pad or ice as tole rated Related to Pain of right lower extremity elevate higher than your heart R elated to Pain of right lower extremity Assessments Type Assessment Date No Information Patient Care Teams Name Effective Dates (start - stop) Status Members No Information
--- OUTSIDE RECORDS SUMMARY | 2025-07-02 16:42 | XMS_ITS | Patient Health Record ---
Author Organization [facility] Address [address] [place] [address] Care Team Providers Care Support Engineer Name Role Phone Cecil Figueredo Primary Care Provider Lulu Wade [phone] Allergies Allergen (clinical drug ingredient) Drug/Non Drug Allergy documented on EMR Reaction Allergy Type Onset Date Status Wellbutrin shortness of breath Drug Allergy Active Reason For Referral No Information Medications Medication SIG (Take, Route, Frequency, Duration) Notes Start Date End Date Status Vraylar 3 MG 1 capsule Orally at night; Duration: 30 days Active Atorvastatin Calcium 40 mg TAKE 1 TABLET BY MOUTH DAILY; Duration: 30 Active Vivitrol 380 MG 4 ml Intramuscular every 4 weeks; Duration: 28 days Not-Taking Vistaril 25 MG 1-2 capsules orally twice a day as needed for anxiety; Duration: 14 days 08/01/2022 Not-Taking NAC 600 MG 1 capsule Orally Twice a day Not-Taking Remeron 15 MG 1/2 tablet for a week then stop Orally Once a day for appetite Not-Taking Naltrexone HCl 50 MG 1 tablet Orally Once a day; Duration: 30 day(s) 10/24/2020 Not-Taking clonazePAM 0.5 mg TAKE 1 TABLET BY MOUTH DAILY NEEDED FOR SEVERE ANXIETY; Duration: 10 10/30/2022 Active Ramelteon 8 MG 1 tablet at bedtime as needed Orally at night; Duration: 30 days 07/04/2021 Not-Taking Propranolol HCl 20 MG 1.5 tablet Orally Twice a day; Duration: 30 days Active FLUoxetine HCl 60 MG 1 tablet Orally Once a day; Duration: 30 days Not-Taking KlonoPIN 0.5 MG 1 tablet Orally once daily as needed for severe anxiety; Duration: 10 days 12/06/2022 Active Campral 333MG two tablets orally Three Times a day; Duration: 30 days Not-Taking Melatonin 5 MG 2 Sublingual at night 03/02/2022 Active Inderal LA 60 MG 1 capsule Orally Once a day; Duration: 30 day(s) for tension headaches Not-Taking Social [...] the p ast year? No Section Notes: [id number] 10/30/2022 10/30/2022 clonazePAM 10.0 10 0.5 MG NA Lulu Wade L, Msn, [facility] - [id number] [place], [place] NA 0 [place] 1 [id number] 09/19/2022 09/19/2022 clonazePAM 10.0 10 0.5 MG Lulu Castañeda L, Msn, [facility] - [id number] [place], [place] NA 0 [place] 1 [id number] 07/19/2022 07/19/2022 clonazePAM 5.0 5 0.5 MG Lulu Castañeda L, Msn, [facility] - [id number] [place], [place] NA 0 [place] 1 [id number] 06/14/2022 06/14/2022 clonazePAM 5.0 5 0.5 MG Lulu Castañeda L, Msn, [facility] - [id number] [place], [place] NA 0 [place] 1 [id number] 05/22/2022 05/22/2022 clonazePAM 5.0 5 0.5 MG Lulu Castañeda L, Msn, [facility] - [id number] 05/16/2022 05/16/2022 clonazePAM 7.0 7 0.5 MG NA Lulu Wade L, Msn, [facility] - [id number] [place], [place], [place] NA 0 [place] 1 [id number] 05/03/2022 05/03/2022 clonazePAM 5.0 5 0.5 MG NA Lulu Wade L, Msn, [facility] [id number] [place], [place] NA 0 [place] 1 [id number] 05/02/2022 05/01/2022 Belsomra 30.0 30 20 MG NA Lulu Wade L, Msn, [facility] [id number] [place], [place] NA 0 [place] 1 [id number] 04/20/2022 04/11/2022 Suvorexant 30.0 30 10 MG NA Lulu Wade L, Msn, [facility] [id number] 03/23/2022 03/23/2022 LORazepam 7.0 3 0.5 MG NA Libia Willingham L ([facility]) - [id number] [place], [place] NA 0 [place] 1 [id number] 01/18/2022 01/18/2022 clonazePAM 15.0 15 0.5 MG NA Lulu Wade L, Msn, [facility] [id number] [place], [place] NA 0 [place] 1 [id number] 01/18/2022 01/18/2022 clonazePAM 15.0 15 0.5 MG NA Lulu Wade L, Msn, [facility] - [id number] [place], [place] NA 0 [place] 1 [id number] 10/23/2021 10/23/2021 clonazePAM 20.0 20 0.5 MG NA Lulu Wade L, Msn, [facility] [id number] [place], [place] NA 0 [place] 1 [id number] 09/04/2021 09/04/2021 clonazePAM 30.0 30 0.5 MG NA Lulu Wade L, Msn, [facility] [id number] 03/23/2022 03/23/2022 LORazepam 7.0 3 0.5 MG NA Libia WillinghamMireya ([facility] - [id number] [place], [place] NA 0 [place] 1 [id number] 01/18/2022 01/18/2022 clonazePAM 15.0 15 0.5 MG NA Lulu Wade L, Msn, [facility] - [id number] [place], [place] NA 0 [place] 1 [id number] 01/18/2022 01/18/2022 clonazePAM 15.0 15 0.5 MG NA Lulu Wade L, Msn, [facility] - [id number] [place], [place] NA 0 [place] 1 [id number] 10/23/2021 10/23/2021 clonazePAM 20.0 20 0.5 MG NA Lulu Wade L, Msn, [facility] - [id number] [place], [place] 0 [place] 1 [id number] 09/04/2021 09/04/2021 clonazePAM 30.0 30 0.5 MG NA Lulu Wade L, Msn, [facility] - [id number] 10/23/2021 10/23/2021 clonazePAM 20.0 20.0 0.5 MG NA Lulu Wade L, Msn, [facility] - [id number] [place], [place] NA 0 [place] 1 [id number] 09/04/2021 09/04/2021 clonazePAM 30.0 30.0 0.5 MG NA Lulu Wade L, Msn, [facility] - [id number] [place], [place] 0 [place] 1 [id number] 07/31/2021 07/25/2021 clonazePAM 30.0 30.0 0.5 MG NA Lulu Wade L, Msn, [facility] - [id number] [place], [place] NA 0 [place] 1 [id number] 07/04/2021 07/04/2021 clonazePAM 30.0 30.0 0.5 MG NA Lulu Wade L, Msn, [facility] - [id number] [place], [place] NA 0 [place] 1 [id number] 05/17/2021 05/17/2021 clonazePAM 30.0 30.0 0.5 MG NA Wade [id number] 01/18/2022 01/18/2022 clonazePAM 15.0 15.0 0.5 MG NA Lulu Wade L, Msn, [facility] - [id number] [place], [place] NA 0 [place] 1 [id number] 01/18/2022 01/18/2022 clonazePAM 15.0 15.0 0.5 MG NA Lulu Wade L, Msn, [facility] - [id number] [place], [place] NA 0 [place] 1 [id number] 10/23/2021 10/23/2021 clonazePAM 20.0 20.0 0.5 MG NA Lulu Wade L, Msn, [facility] - [id number] 05/16/2022 05/16/2022 clonazePAM 7.0 7 0.5 MG NA Lulu Wade L, Msn, [facility] - [id number] [place], [place] 0 [place] 1 [id number] 05/03/2022 05/03/2022 clonazePAM 5.0 5 0.5 MG NA Lulu Wade L, Msn, [facility] - [id number] [place], [place] 0 [place] 1 [id number] 05/02/2022 05/01/2022 Belsomra 30.0 30 20 MG NA Lulu Wade L, Msn, [facility] - [id number] [place], [place] NA 0 [place] 1 [id number] 04/20/2022 04/11/2022 Suvorexant 30.0 30 10 MG NA Lulu Wade L, Msn, [facility] - [id number] 05/16/2022 05/16/2022 clonazePAM 7.0 7 0.5 MG NA Lulu Wade L, Msn, [facility] [id number] [place], [place] NA 0 [place] 1 [id number] 05/03/2022 05/03/2022 clonazePAM 5.0 5 0.5 MG NA Lulu Wade L, Msn, [facility] [id number] [place], [place] 0 [place] 1 [id number] 05/02/2022 05/01/2022 Belsomra 30.0 30 20 MG NA Lulu Wade L, Msn, [id number] [place], [place] 0 [place] 1 [id number] 04/20/2022 04/11/2022 Suvorexant 30.0 30 10 MG NA Lulu Wade L, Msn, [facility] [id number] 01/18/2022 01/18/2022 clonazePAM 15.0 15.0 0.5 MG NA Lulu Wade L, Msn, [facility] [id number] [place], [place] NA 0 [place] 1 [id number] 01/18/2022 01/18/2022 clonazePAM 15.0 15.0 0.5 MG NA Lulu Wade L, Msn, [facility] [id number] [place], [place] NA 0 [place] 1 [id number] 10/23/2021 10/23/2021 clonazePAM 20.0 20.0 0.5 MG NA Lulu Wade L, Msn, [facility] [id number] 10/23/2021 10/23/2021 clonazePAM 20.0 20.0 0.5 MG NA Lulu Wade L, Msn, [facility] [id number] [place], [place] 1 [id number] 09/04/2021 09/04/2021 clonazePAM 30.0 30.0 0.5 MG NA Lulu Wade L, Msn, [facility] [id number] [place], [place] 0 [place] 1 [id number] 07/31/2021 07/25/2021 clonazePAM 30.0 30.0 0.5 MG NA Luul Wade L, Msn, [facility] [id number] [place], [place] 0 [place] 1 [id number] 07/04/2021 07/04/2021 clonazePAM 30.0 30.0 0.5 MG NA Lulu Wade L, Msn, [facility] [id number] [place], [place] 0 [place] 1 [id number] 05/17/2021 05/17/2021 clonazePAM 30.0 30.0 0.5 MG NA Mauro [id number] 01/18/2022 01/18/2022 clonazePAM 15.0 15 0.5 MG NA Lulu Wade L, Msn, [facility] [id number] [place], [place] 0 [place] 1 [id number] 01/18/2022 01/18/2022 clonazePAM 15.0 15 0.5 MG NA Lulu Wade L, Msn, [id number] [place], [place] 1 [id number] 10/23/2021 10/23/2021 clonazePAM 20.0 20 0.5 MG NA Lulu Wade L, Msn, [facility] [id number] [place], [place] 0 [place] 1 [id number] 09/04/2021 09/04/2021 clonazePAM 30.0 30 0.5 MG NA Lulu Wade L, Msn, [facility] [id number] [place], [place] 0 [place] 1 [id number] 07/31/2021 07/25/2021 clonazePAM 30.0 30 0.5 MG NA Lulu Wade L, Msn, [facility] [id number] [place], [place] 0 [place] 1 [id number] 07/04/2021 07/04/2021 clonazePAM 30.0 30 0.5 MG NA Lulu Wade L, Msn, [facility] [id number] 10/23/2021 10/23/2021 clonazePAM 20 20 0.5 MG NA Lulu Wade L, Msn, [facility] - [id number] [place], [place] 1 [id number] 09/04/2021 09/04/2021 clonazePAM 30 30 0.5 MG NA Lulu Wade L, Msn, [facility] - [id number] [place], [place] 1 [id number] 07/31/2021 07/25/2021 clonazePAM 30 30 0.5 MG NA Lulu Wade L, Msn, [facility] - [id number] [place], [place] 1 [id number] 07/04/2021 07/04/2021 clonazePAM 30 30 0.5 MG NA Lulu Wade L, Msn, [facility] - [id number] [place], [place] 1 [id number] 05/17/2021 05/17/2021 clonazePAM 30 30 0.5 MG NA Wade [id number] 09/04/2021 09/04/2021 clonazePAM 30 30 0.5 MG NA Lulu Wade L, Msn, [facility] - [id number] [place], [place] 1 [id number] 07/31/2021 07/25/2021 clonazePAM 30 30 0.5 MG NA Lulu Wade L, Msn, [facility] - [id number] [place], [place] 1 [id number] 07/04/2021 07/04/2021 clonazePAM 30 30 0.5 MG NA Lulu Wade L, Msn, [facility] - [id number] [place], [place] 1 [id number] 05/17/2021 05/17/2021 clonazePAM 30 30 0.5 MG NA Mauro [id number] 01/18/2022 01/18/2022 clonazePAM 15.0 15.0 0.5 MG NA Lulu Wade L, Msn, [facility] - [id number] [place], [place] 0 [place] 1 [id number] 10/23/2021 10/23/2021 clonazePAM 20.0 20.0 0.5 MG NA Lulu Wade L, Msn, [facility] [id number] [place], [place] 0 [place] 1 [id number] 09/04/2021 09/04/2021 clonazePAM 30.0 30.0 0.5 MG NA Lulu Wade L, Msn, [facility] [id number] [place], [place] 0 [place] 1 [id number] 07/31/2021 07/25/2021 clonazePAM 30.0 30.0 0.5 MG NA Lulu Wade L, Msn, [facility] [id number] [place], [place] 0 [place] 1 [id number] 07/04/2021 07/04/2021 clonazePAM 30.0 30.0 0.5 MG NA Mauro [id number] 03/23/2022 03/23/2022 LORazepam 7.0 3 0.5 MG NA Libia Willingham L ([facility]) - [id number] [place], [place] NA 0 [place] 1 [id number] 01/18/2022 01/18/2022 clonazePAM 15.0 15 0.5 MG NA Lulu Wade L, Msn, [facility] [id number] [place], [place] 0 [place] 1 [id number] 01/18/2022 01/18/2022 clonazePAM 15.0 15 0.5 MG NA Lulu Wade L, Msn, [facility] [id number] [place], [place] 0 [place] 1 [id number] 10/23/2021 10/23/2021 clonazePAM 20.0 20 0.5 MG NA Lulu Wade L, Msn, [facility] [id number] [place], [place] 0 [place] 1 [id number] 09/04/2021 09/04/2021 clonazePAM 30.0 30 0.5 MG NA [facility] [id number] 05/16/2022 05/16/2022 clonazePAM 7.0 7 0.5 MG NA Lulu Wade L, Msn, [facility] - [id number] [place], [place] NA 0 [place] 1 [id number] 05/03/2022 05/03/2022 clonazePAM 5.0 5 0.5 MG NA Lulu Wade L, Msn, [facility] - [id number] [place], [place] NA 0 [place] 1 [id number] 05/02/2022 05/01/2022 Belsomra 30.0 30 20 MG NA Lulu Wade L, Msn, [facility] - [id number] [place], [place] NA 0 [place] 1 [id number] 04/20/2022 04/11/2022 Suvorexant 30.0 30 10 MG NA Lulu Wade L, Msn, [facility] - [id number] Problems Problem Type SNOMED Code ICD Code Onset Dates Problem Status W/U Status Risk Notes Problem Tobacco user (800700427) Nicotine dependence, unspecified, uncomplicated (F17.200) Active confirmed Problem Insomnia (519894393) Insomnia (G47.00) Active confirmed Problem Major depression (762706865) Major depression (F32.9) Active confirmed clinically suspect Bipolar II. Worsening mood/sleep and anxiety symptoms with d/c of Zyprexa and sporadic periods of elevated moods and more talkative and grandiose like thoughts. No distinct symptoms reported by patient. Will continue to evaluate Problem Mood disorder (57214438) Mood disorder (F39) Active confirmed clinically suspect Bipolar II. Worsening mood/sleep and anxiety symptoms with d/c of Zyprexa and sporadic periods of elevated moods and more talkative and grandiose like thoughts. No distinct symptoms reported by patient. Will continue to evaluate Problem Generalized anxiety disorder (45200236) ASHWIN (generalized anxiety disorder) (F41.1) Active confirmed Problem Panic disorder (605196032) Panic disorder (F41.0) Active confirmed Problem Panic attack (554777767) Panic attack (F41.0) Active confirmed Problem Bipolar disorder (49126969) Bipolar disorder (F31.9) Active confirmed History of Worsening mood/sleep and anxiety symptoms with d/c of Zyprexa and sporadic periods of elevated moods and more talkative and grandiose like thoughts. Now with 2 week period of decreased need for sleep with increased energy and racing thoughts causing functional impairment in ability to manage day to day activities secondary to symptoms Problem Alcohol use disorder (1684997349) Alcohol use disorder (F10.99) Active confirmed Problem Depressive disorder (disorder) (49046691) Depression, unspecified depression type (F32.9) Active confirmed Problem Panic disorder (417496659) Panic attacks (F41.0) Active confirmed Problem Alcohol dependence (31110111) Alcohol use disorder, severe, dependence (F10.20) Active confirmed Problem Tobacco use (036354334) Tobacco use disorder (F17.200) Active confirmed Problem Male hypogonadism (99632590) Hypogonadism male (E29.1) Active confirmed Plan Of Treatment No Information Insurance Providers Payer Name Payer Address Payer Phone Subscriber Number Group Number Insured Name Patient Relationship to Insured Coverage Start Date Coverage End Date [facility] [address] [place] [phone] [id number] 6 Elder Sexton Self - patient is the insured [address] [phone] [id number] 6 Elder Sexton Self - patient is the insured [address] [phone] [id number] 6 Elder Sexton Self - patient is the insured 0 Medications Administered Medication Instructions Date of Administration Dosage Notes Vivitrol 11/03/2020 380 mg Manufact by Carloz kim Pt osmar well. Vivitrol 12/01/2020 380 mg Rn Triage-[place] Pt tolerated injection well. Patient voiced no questions or concerns Vivitrol 12/29/2020 380 mg cutter hand-[place] Pt tolerated injection well. Pt voiced no questions or concerns. Vivitrol 01/27/2021 380 mg Manufact by Carloz kim pt osmar well. Vivitrol 02/24/2021 380 mg Pt osmar well. Vivitrol 03/24/2021 380 mg Rn Triage A lkermes. Pt tolerated well. Voiced no questions or concerns at present time. Vivitrol 04/21/2021 380 mg Rn Triage A lkermes. Pt tolerated well. Voiced no questions or concerns at present time. Medical (General) History Surgical History Surgery Date(Month/Year) pectoralis excavatum surgery 1980 Hospitalization History Reason Date(Month/Year) pectoralis excavatum surgery 1980
--- NOTE | 2025-07-02 18:01 | ED_ITS ---
HPI - Nausea/Vomiting/Diarrhea General Chief complaint: Nausea/Vomiting/Diarrhea Stated complaint: all the problems Time Seen by Provider: 07/02/25 17:10 Source: patient Mode of arrival: ambulatory Limitations: no limitations History of Present Illness HPI Narrative: This is a 49 year old male that presents to the ER for anxiety. Reports he is getting his medications adjusted currently and had several panic attacks last weekend. Reports he also was having vomiting and diarrhea once he started eating normally again. Reports he feels dehydrated. Denies fevers, abdominal pain. Related Data Home Medications ?Medication ?Instructions ?Recorded ?Confirmed ?Last Taken ?Type buspirone 5 mg tablet 5 mg PO BID 10/08/19 Unknown History clonazepam 1 mg tablet 1 mg PO TID 10/08/19 Unknown History escitalopram oxalate 10 mg tablet 10 mg PO DAILY 10/08/19 Unknown History trazodone 100 mg tablet 100 mg PO HS 10/08/19 Unknown History Allergies Allergy/AdvReac Type Severity Reaction Status Date / Time bupropion (From Wellbutrin) AdvReac Anxiety Verified 07/02/25 16:49 quetiapine (From Seroquel) AdvReac Irritable Verified 07/02/25 16:49 Review of Systems 2 Review of Systems: All systems reviewed & are unremarkable except as noted in HPI and below PMFSH Past Medical History Medical History Anxiety Cluster headache GERD (gastroesophageal reflux disease) Psoriasis Family History Family History Mother Family history of malignant neoplasm Other Cerebrovascular accident Social History Social History Smoking status: Current every day smoker Alcohol intake: current Alcohol use details: Current alcoholic. Substance use type: does not use Gender identity (if verbalized by the patient): Male Exam 2 Narrative: GENERAL: Well-appearing, well-nourished, and in no acute distress. HEAD: Normocephalic, atraumatic. EYES: EOMI. ENT: Nares clear, no rhinorrhea or epistaxis. Mucous membranes moist. CHEST: Clear to auscultation. No respiratory distress. No wheezes rales or rhonchi HEART: Regular rate and rhythm. No murmur heard. Normal peripheral pulses. ABDOMEN: Soft, nontender, nondistended, normal active bowel sounds. EXTREMITIES: Normal range of motion. No edema. SKIN: Warm, dry, no rash. NEURO: No focal deficits. Alert and oriented x3. PSYCH: Normal mood and affect Course Course Emergency Course: Patient updated on his workup and agrees plan of care Vital Signs Vital signs: Vital Signs Temperature 98 F 07/02/25 16:47 Pulse Rate 61 07/02/25 16:47 Respiratory Rate 18 07/02/25 16:47 Blood Pressure 128/90 07/02/25 16:47 Pulse Oximetry 100 07/02/25 16:47 Oxygen Delivery Room Air 07/02/25 16:47 Temperature 98 F 07/02/25 16:47 Pulse Rate 72 07/02/25 17:31 Respiratory Rate 18 07/02/25 17:31 Blood Pressure 116/84 07/02/25 17:31 Pulse Oximetry 97 07/02/25 17:31 Oxygen Delivery Room Air 07/02/25 16:47 MDM - Nausea/Vomiting/Diarrhea MDM Narrative Medical decision making narrative: Patient presents the emergency department for acute anxiety. Worsening over the last week. Also endorses several days of vomiting and diarrhea. Concern for dehydration. He is afebrile and nontoxic appearing. His vitals are stable. Cbc without leukocytosis. Metabolic panel with mild transaminitis. Lipase is normal. Urine shows mild dehydration. Patient hydrated with IV fluids, given antiemetics with relief. Right upper quadrant ultrasound shows normal gallbladder and liver. Patient updated on his workup and agrees with plan of care. He is to follow up with primary provider and psychiatrist. He was given warnings to return to the ER Differential Diagnosis Differential diagnosis: Likely food poisoning, gastroenteritis, drug-induced nausea and vomiting, dehydration and other (Anxiety, biliary colic, pancreatitis, hepatic steatosis) Lab Data Attestation: I reviewed the patient's lab results. 07/02/25 17:52 07/02/25 17:53 Labs: Lab Results 07/02/25 07/02/25 07/02/25 Range/Units 17:52 17:53 17:54 WBC 5.5 (4.5-10.0) K/mm3 RBC 4.31 L (4.6-6.20) M/mm3 Hgb 13.5 L (14.0-18.0) g/dL Hct 38.1 L (42.0-52.0) % MCV 88.4 (80-100) fl MCH 31.3 (26-34) pg MCHC 35.4 (32-36) g/dl RDW 12.3 (11.5-14.5) % Plt Count 185 (150-375) k/mm3 MPV 9.4 (7.4-10.4) fl Immature Gran % (Auto) 0.5 (0-0.5) % Neut % (Auto) 63.4 (45.5-73.1) % Lymph % (Auto) 23.3 (18.3-44.2) % [place] % (Auto) 8.9 H (2.6-8.5) % Eos % (Auto) 3.4 (0-4.4) % Baso % (Auto) 0.5 (0.2-1.2) % Lymph # (Auto) 1.29 (0.9-3.2) K/mm3 [place] # (Auto) 0.5 (0.1-0.6) K/mm3 Eos # (Auto) 0.2 (0-0.3) K/mm3 Baso # (Auto) 0.0 (0.0-0.1) K/mm3 Abs Immat Gran (auto) 0.03 (0.00-0.031) K/mm3 Absolute Neuts (auto) 3.5 (1.3-6.7) K/mm3 Absolute Nucleated RBC 0.000 (0.0-0.012) K/mm3 Nucleated RBC % 0.0 (0.0-0.2) % Sodium 135 L (137-145) mmol/L Potassium 3.7 (3.4-5.0) mmol/L Chloride 104 (98-107) mmol/L Carbon Dioxide 27 (22-30) mmol/L Anion Gap 4 (4-12) mmol/L BUN 10 D (9-20) mg/dL Creatinine 1.12 (0.7-1.3) mg/dL Estim Creat Clear Calc 69 ml/min Estimated GFR > 60 (59 - ) Glucose 113 H (65-110) mg/dL Calcium 8.7 (8.4-10.2) mg/dL Magnesium 2.3 (1.6-2.3) mg/dL Total Bilirubin 0.3 (0.2-1.3) mg/dL AST 136 H (17-59) U/L ALT 177 H (6-50) U/L Alkaline Phosphatase 62 (38-126) U/L Total Protein 5.9 L (6.3-8.2) g/dL Albumin 3.5 (3.5-5.1) g/dL Lipase 95 (23-300) U/L Urine Color Yellow (Yellow) Urine Appearance Clear (Clear) Urine pH 8.0 (5.0-9.0) Ur Specific [place] 1.006 (1.001-1.035) Urine Protein Negative (Negative) mg/dL Urine Glucose (UA) Negative (Negative) mg/dL Urine Ketones Trace H (Negative) mg/dL Ur Blood (Man) Negative (Negative) Urine Nitrate Negative (Negative) Urine Bilirubin Negative (Negative) Urine Urobilinogen 0.2 (<2.0) mg/dL Leukocyte Esterase Rfl Negative (Negative) WILMAN/UL Imaging Data Radiologist's impression: ITS Impressions Upper Quadrant Ultrasound 07/02/25 19:24 IMPRESSION: Limited evaluation of the pancreas secondary to overlying bowel gas No stones within the gallbladder. Liver is unremarkable. Critical Care Time Critical Care Time Critical Care Time: No Discharge Plan Discharge Clinical Impression: Anxiety, Transaminitis, Gastroenteritis Patient Disposition: Home Condition: Stable Instructions: Gastroenteritis (ED), Anxiety (ED), Transaminitis (ED) Additional Instructions: Return to the ER if you experience fever, abdominal pain with nausea and vomiting, you are unable to keep down liquids or solids, or any other symptoms that are concerning to you Small, frequent meals. Baltic diet. Remain well hydrated. Ondansetron as needed for nausea Follow up with your primary care doctor and psychiatrist Patient Language: Portuguese Prescriptions: New ondansetron 4 mg tablet,disintegrating 4 mg PO Q8H PRN (Reason: nausea and vomiting) Qty: 10 0RF No Action buspirone 5 mg Tablet 5 mg PO BID clonazepam 1 mg Tablet 1 mg PO TID trazodone 100 mg Tablet 100 mg PO HS escitalopram oxalate 10 mg Tablet 10 mg PO DAILY diazepam [Valium] 5 mg tablet 5 mg PO BID PRN (Reason: anxiety) Qty: 6 0RF lorazepam [Ativan] 0.5 mg tablet 0.5 mg PO BID PRN (Reason: anxiety) Qty: 7 0RF omeprazole magnesium [Prilosec OTC] 20 mg tablet,delayed release (DR/EC) 20 mg PO DAILY 14 Days Qty: 14 0RF clonazepam 0.5 mg tablet 0.5 mg PO BID PRN (Reason: anxiety) Qty: 5 0RF clonazepam 1 mg tablet 1 mg PO DAILY Qty: 1 0RF Follow-up/Referrals: Kushal Cabrales MD [Primary Care Provider] -
--- OUTSIDE RECORDS SUMMARY | 2025-07-02 18:12 | XMS_ITS | Continuity of Care Document ---
Author Organization [facility] Address [address] [facility] [address] [place] [address] Phone Care Team Providers Care Slide Developer Name Role Phone Cristiano Lee MD Unavailable [...] Diagnoses Date Provider Providers Copied on Encounter [facility], [address] [place] [address], [facility], tel:[phone] [facility] No Information 6 Rosa Quinonez. [address] [place] [address], [id number] . tel:[phone] OFFICE CONSULTATION [facility], [address] [place] [address], [facility], tel:[phone] [facility] eval R leg (chief complaint) Pain of right lower extremity 6 Rosa Quinonez. [address] [place], [place], [id number] . tel:[phone] Referring Provider: Sim Hidalgo, [address], [place], [address]. tel:[phone] Family History Family Member Type Diagnosis Age [...]
--- OUTSIDE RECORDS SUMMARY | 2025-07-02 18:12 | XMS_ITS | Clinical Summary ---
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 Gender Identity Not on file Sexual Orientation Not on file Last Filed Vital Signs Vital Sign Reading Time Taken Comments Blood Pressure 114/73 11/07/2023 10:17 AM PROPOSAL CONSULTANT Pulse 70 11/07/2023 10:17 AM PROPOSAL CONSULTANT Temperature 36.3 C (97.4 F) 11/07/2023 10:17 AM PROPOSAL CONSULTANT Respiratory Rate 16 11/07/2023 10:1 7 AM PROPOSAL CONSULTANT Oxygen Saturation 97% 11/07/2023 10: 17 AM PROPOSAL CONSULTANT Inhaled Oxygen Concentration - - Weight 75.7 kg (166 lb 12.8 oz) 023 10:17 AM PROPOSAL CONSULTANT Height 172.7 cm (5' 8) 10/31/2023 10:4 5 AM PROPOSAL CONSULTANT Body Mass Index 25.36 10/31/2023 10:45 AM PROPOSAL CONSULTANT Plan of Treatment Health Maintenance Due Date [...]
--- OUTSIDE RECORDS SUMMARY | 2025-07-02 18:12 | XMS_ITS | Clinical Summary ---
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 Pulse 77 11/28/2023 12:44 PM SPINNING ROOM WORKER Temperature - - Respiratory Rate - - Oxygen Saturation - - Inhaled Oxygen Concentration - - Weight 76.7 kg (169 lb) 11/28/2023 12:44 PM SPINNING ROOM WORKER Height 170.2 cm (5' 7) 11/28/2023 12:44 PM SPINNING ROOM WORKER Body Mass Index 26.47 11/28/2023 12:44 PM SPINNING ROOM WORKER Plan of Treatment Upcoming Encounters Date Type Department Care Team ([facility] st Contact Info) Description 2025 2:40 PM CDT Office Visit [facility] [address] [facility] [address] [place] [address] Jeremy Abebe MD [address] [facility] [address] [place] [address] Health Maintenance Due Date Last Done Comments Pneumococcal PPSV23 Highest Risk Adult (1 of 3 - PCV13 ) 1995 Influenza Vaccine (#1) 2025 Insurance PM INTERFACED INSURANCE
--- OUTSIDE RECORDS SUMMARY | 2025-07-02 18:13 | XMS_ITS | Continuity of Care Document ---
[facility] Address [address] [place] [address] Phone Care Team Providers Care Critical Care Nurse Name Role Phone Sharri Gutierrez MD Unavailable Unavailable Allergies, Adverse Reactions, Alerts Substance Reaction Status Criticality erythromycin base Other Active No Informa tion Advance Directives Directive Yes / No Effective Date File Name No Information Encounters Encounter Description Practice Location Reason(s) For Visit Diagnoses Date Provider Providers Copied on Encounter [facility], [address], [place], [place], [id number], tel:[phone] [facility] No Information Matt Harrell. [address] [place] [address], [address], [id number], [place]. tel:[phone] [facility], [address], [place], [place], [id number], tel:[phone] [facility] ESOPHAGEAL REFLUX Matt Harrell. [address] [place] [address], [address], [place], [id number], . tel:[phone] [facility], [address], [place], [place], [id number], tel:[phone] [facility] ACUTE BRONCHITIS Jacinto Hatfield. [address] [place] [address], [address], [place], [place], [id number], [place]. tel:[phone] [facility], [address], [place], [place], [address], tel:[phone] [facility] PNEUMONIA, ORGANISM NOS Matt Harrell. [address] [place] [address], [address], [place], [place], [id number], [place]. tel:[phone] [facility] [address], [address], [place], [place], [id number], [place] tel:[phone] [facility] VACCIN FOR INFLUENZA Matt Harrell. [address] [place] [address], [address], [place], [place], [id number], [place]. tel:[phone] Family History Family Member Type Diagnosis Age At Onset No Information Immunizations Vaccine Date Status Comments 36367 - Influenza administered Source: [place] Unspecified Payers Payer name Insurance type Covered alliance party ID Authoriza tion(s) No Information Social History [...]
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
[2025-07-02 18:18] LABS: Hematocrit 38.1 % (42.0-52.0); Hemoglobin 13.5 g/dL (14.0-18.0); Immature Granulocyte Percent A 0.5 % (0-0.5); Lymphocytes Absolute Auto 1.29 K/mm3 (0.9-3.2); Mean Corpuscular HGB Conc 35.4 g/dl (32-36); Mean Corpuscular Hemoglobin 31.3 pg (26-34); Mean Corpuscular Volume 88.4 fl (80-100); Nucleated Red Blood Cells Absolute Auto 0.000 K/mm3 (0.0-0.012); Nucleated Red Blood Cells Perc 0.0 % (0.0-0.2); Platelet Count Result 185 k/mm3 (150-375); Red Blood Count 4.31 M/mm3 (4.6-6.20); White Blood Count 5.5 K/mm3 (4.5-10.0)
[2025-07-02 18:21] LABS: Add Urine Microscopic? NO; Appearance Urine Clear (Clear); Glucose Urine UA Negative (Negative); Leukocyte Esterase Ur Negative LEU/UL (Negative); Nitrate Urine Negative (Negative); Specific Grav Ur 1.006 (1.001-1.035)
[2025-07-02 18:28] LABS: Alanine Aminotransferase 177 U/L (6-50); Albumin Level 3.5 g/dL (3.5-5.1); Alkaline Phosphatase 62 U/L (38-126); Anion Gap 4 mmol/L (4-12); Aspartate Amino Transferase 136 U/L (17-59); Bilirubin,Total 0.3 mg/dL (0.2-1.3); Blood Urea Nitrogen 10 mg/dL (9-20); Calcium 8.7 mg/dL (8.4-10.2); Carbon Dioxide 27 mmol/L (22-30); Chloride 104 mmol/L (98-107); Estimated CRCL calculation 69 ml/min; Estimated Glomerular Filt Rate > 60; Glucose 113 mg/dL (65-110); Lipase 95 U/L (23-300); Magnesium 2.3 mg/dL (1.6-2.3); Potassium 3.7 mmol/L (3.4-5.0); Sodium 135 mmol/L (137-145); Total Protein 5.9 g/dL (6.3-8.2)
[2025-07-02] MEDS: SODIUM CHLORIDE 0.9% IV 1,000 ML 999 ML IV CONT (18:33)
[2025-07-02] MEDS: ONDANSETRON INJ 4 MG/2 ML VIAL IV PUSH (18:34)
[2025-07-02] MEDS: FAMOTIDINE 20 MG/2 ML VIAL IV PUSH (18:34)
[2025-07-02] MEDS: LACTATED RINGERS 1,000 ML 999 ML IV CONT (19:54)
== END 2025-07-02 21:28 | disposition home or self-care (01) ==
PROVIDERS: Emergency Provider Physician Assistant; PCP Emergency Medicine
DX: F41.9 Anxiety disorder, unspecified (principal); K52.9 Noninfective gastroenteritis and colitis, unspecified; K21.9 Gastro-esophageal reflux disease without esophagitis; R74.01 Elevation of levels of liver transaminase levels; L40.9 Psoriasis, unspecified; F17.200 Nicotine dependence, unspecified, uncomplicated
CPT/HCPCS: 36415; 76705; 80053; 81003; 83690; 83735; 85025; 96361; 96374; 96375; 99284; J2405; J7030; J7120